=== PATIENT | female | born 1975 | race Two or more races ===

== ENCOUNTER 2020-06-16 14:13 | Outpatient (REF) | payer OTHER, SELFPAY | END 2020-06-16 14:14 | disposition home or self-care (01) | LOC: HO.LAB 14:13 | PROVIDERS: Visit Provider Internal Medicine | DX: Z20.828 Contact with and (suspected) exposure to other viral communicable diseases (principal) | CPT/HCPCS: 36415; C9803; U0003 ==

== ENCOUNTER 2020-06-17 00:33 | Emergency (ER) | payer SELFPAY ==
[2020-06-17 01:37] VITALS: BP 151/89; PULSE 87; RESP 16; TEMP 36.6; O2SAT 99; BMI 31.6
--- NOTE | 2020-06-17 02:44 | ED.GENADULT ---
HPI - General Adult General Chief complaint: Upper Respiratory Symptoms Stated complaint: SORE THROAT/COVID TEST PENDING Time Seen by Provider: 06/17/20 02:19 Source: patient Mode of arrival: ambulatory Limitations: language barrier (IPad senior cost estimator was used) History of Present Illness HPI narrative: 44-year-old female who presents with a viral-like syndrome. The patient states that she has been feeling sick for approximately 3 days. She complains of a sore throat, chest pain, cough which is worse at night and occasionally productive, fatigue. She states that she is having mild pain when she swallows, she states that she is also feeling hot and cold at home but did not have a fever. She has had chest pain for the past 3-4 days. She states the pain is intermittent and located in her anterior chest. The pain is worse with coughing with breathing. She shortness of breath but no dyspnea on exertion. She denied nausea, vomiting or diarrhea. She denied loss of sense of taste or smell. She states the daughter is COVID-19 positive anterior daughter is now in quarantine.. Related Data Previous Rx's Medication Instructions Recorded lisinopril 10 mg tablet 10 mg PO DAILY 90 Days #90 tab 03/27/20 [id number] 5 10 ml PO Q4H PRN #237 ml 03/27/20 mg-10 mg-100 mg/5 mL oral liquid Allergies Allergy/AdvReac Type Severity Reaction Status Date / Time No Known Allergies Allergy Verified 06/17/20 01:45 [No Known Allergies*] Review of Systems Review of Systems: Yes all other systems are reviewed and are negative Neurologic: Reports Abnormal speech present [facility] Past Medical History [facility] Narrative: Patient has history of hypertension. She denies tobacco, alcohol or drug use. Medical History Common cold Hypertension Social History Social History Advance Directives: No Physical Exam Vital Signs: Vital Signs: Last Vital Signs Temp 97.9 F 06/17/20 01:37 Pulse 87 06/17/20 01:37 Resp 16 06/17/20 01:37 BP 151/89 H 06/17/20 01:37 Pulse Ox 99 06/17/20 01:37 Body Mass Index 31.6 Const: General: cooperative and healthy appearing Orientation/consciousness: oriented to person and oriented to place Limitations: no limitations HENMT: Head: Yes normal to inspection, Yes normocephalic and Yes atraumatic Ears: external ears normal General nose exam: Normal external nose present Face and sinus: Yes normal facial exam Mouth: Normal oral and palatal mucosa present Throat: Yes posterior oropharynx normal Eyes: Periorbital: periorbital findings normal Eyelids: Yes eyelids normal Conjunctivae: conjunctivae normal Sclerae: sclerae normal Corneas: corneas normal Pupils: Equal, round and reactive pupils present Direct Ophthalmoscopy: normal light reflex Neck: Neck: Yes full ROM, Yes no lymphadenopathy, Yes no meningeal signs, Yes trachea midline and Yes supple Chest: Chest palpation & inspection: normal inspection of the chest and normal palpation of entire chest wall Resp: Effort & Inspection: normal respiratory effort and able to speak in complete sentences Auscultation: clear to auscultation bilaterally Cardio: Rate: regular rate Rhythm: regular rhythm Heart sounds: S1 normal heart sound present, S2 normal heart sound present and no murmurs GI: Inspection: Yes normal to inspection Palpation (GI): Soft to palpation, nontender, no guarding, not rigid and No hepatosplenomegaly present : General: Yes no CVA tenderness Back/Spine/Pelvis: Back: no CVA tenderness Cervical Spine: normal cervical lordosis Thoracic/Lumbar Spine: thoracic and lumbar spine normal to inspection Skin: Lesions: no lesions Rashes: no rashes Wounds: no wounds Neuro: General: oriented to person, oriented to place and no meningeal signs Cranial nerves: Yes Equal, round and reactive pupils present Cognition (Neuro): normal cognition Speech: Abnormal speech present Motor exam (neuro): 5/5 motor strength present throughout Extrem: General: Yes normal to inspection and Yes full ROM Psych: Appearance: well kempt Mental Status: mental status grossly normal Speech and movement: Normal speech and movement present Affect: normal affect Attitude: cooperative Thought process: Normal thought process present Thought content: Normal thought content present Course Course Course Narrative: 44-year-old female who presents emergency department for evaluation of viral-like illness who did have a positive COVID-19 exposure (her daughter). Her exam was unremarkable. Vital signs were stable with an O2 saturation 99% on room air. The patient was tested for COVID-19. She was advised to take ibuprofen and Tylenol. She was given printed instructions and discharged home. Discharge Plan Discharge Clinical Impression: Viral infection, Contact with and (suspected) exposure to covid-19 Patient Disposition: Home, Self-Care Instructions: COVID-19 (Coronavirus Disease 2019) (ED) Additional Instructions: Your COVID-19 test should be back in 2-4 days. It sometimes takes longer than 4 days to get results back as well. The hospital should call you with the results. Until you get the results back, assumed that you are COVID positive in stay home and quarantine. Increase your fluid intake. Rest. Take ibuprofen 200 mg pills, 3 pills every 6 hours as needed for pain or fever. Take Tylenol (acetaminophen) 500 mg pills, 2 pills every 4 to 6 hours as needed for pain or fever. Follow-up with your doctor in 2 days. Please return to the emergency department if your symptoms get worse or if you develop any symptoms that are concerning to you. Prescriptions: No Action lisinopril 10 mg tablet 10 mg PO DAILY 90 Days Qty: 90 RF: 0 Adult Robitussin Peak Cold M-S 5-10-100 mg/5 mL liquid 10 ml PO Q4H PRN (Reason: cold symptoms) Qty: 237 RF: 0 Print Language: [place]
== END 2020-06-17 03:26 | disposition home or self-care (01) ==
PROVIDERS: Emergency Provider Emergency Medicine Emergency Medical Services
DX: B34.9 Viral infection, unspecified (principal); I10 Essential (primary) hypertension
CPT/HCPCS: 99283

== ENCOUNTER 2020-06-20 21:57 | Emergency (ER) | payer OTHER, SELFPAY ==
[2020-06-20 23:27] VITALS: BP 141/95; PULSE 101; RESP 18; TEMP 37.2; O2SAT 97; BMI 31.2
[2020-06-21 02:47] VITALS: BP 163/87; PULSE 91; RESP 18; O2SAT 95
[2020-06-21 03:25] VITALS: BP 149/91; PULSE 96; RESP 16; TEMP 37.1; O2SAT 97
--- NOTE | 2020-06-21 03:38 | XR_ITS ---
EXAMINATION: XR CHEST CLINICAL INFORMATION: Shortness of breath COMPARISON: 10/27/2019 TECHNIQUE: Frontal view of the chest was obtained. FINDINGS: Lungs are clear. No consolidation, pneumothorax, or pleural effusion. Cardiac and mediastinal contours are normal. Pulmonary vasculature is unremarkable. Osseous structures are unremarkable. XR/XR chest 1V IMPRESSION: No acute cardiopulmonary findings
--- NOTE | 2020-06-21 03:40 | ED_ITS ---
HPI - SOB/Dyspnea General Chief Complaint: Dyspnea Stated Complaint: CHEST TIGHTNESS Time Seen by Provider: 06/21/20 03:33 Source: patient Mode of arrival: ambulatory Limitations: no limitations History of Present Illness HPI Narrative: Patient comes to emergency room complaining of shortness of breath. Patient states her chest feels very tight and thinks that she is wheezing. Patient states that she does not have history of asthma or COPD. Patient denies coughing, no fever, no body aches no headache. Patient states that she feels that she is breathing comfortably, but feels tight, no chest pain Related Data Previous Rx's Medication Instructions Recorded lisinopril 10 mg tablet 10 mg PO DAILY 90 Days #90 tab 03/27/20 [id number] 5 10 ml PO Q4H PRN #237 ml 03/27/20 mg-10 mg-100 mg/5 mL oral liquid albuterol sulfate 2 puff INHALATION Q4-6H PRN #8.5 g 06/21/20 prednisone 50 mg PO DAILY #5 tab 06/21/20 Allergies Allergy/AdvReac Type Severity Reaction Status Date / Time No Known Allergies Allergy Verified 06/20/20 23:27 [No Known Allergies*] Review of Systems Review of Systems: Constitutional : No Weight loss, No Fever, No Chills, No Night Sweats, No Fatigue, No Malaise ENT/Mouth : No Hearing loss, No Ear Pain, No Nasal Congestion, No Sinus Pain, No Hoarseness, No sore throat, No Rhinorrhea, No Swallowing Difficulty Eyes: No Eye Pain, No Swelling, No Redness, No Foreign Body, No Discharge, No Vision Changes Cardiovascular : No Chest Pain, No SOB, No Dyspnea on Exertion, No Orthopnea, No Edema, No Palpitations Respiratory : No Cough, No Sputum, complaining of Wheezing and chest tightness, No Smoke Exposure, No Dyspnea Gastrointestinal : No Nausea, No Vomiting, No Diarrhea, No Constipation, No abdominal Pain, No Hematochezia, No Melena Genitourinary : no irregular bleeding, No Dysuria, No Urinary Frequency, No Hematuria, No Urinary Incontinence, No Urgency, No Flank Pain, No Urinary Flow Changes, No Hesitancy Musculoskeletal : No joint pain, No Myalgias, No Joint Swelling Skin : No Skin Lesions, No rash Neuro : No Weakness, No Numbness, No Paresthesias, No Loss of Consciousness, No Dizziness, No Headache Psych : No Anxiety/Panic, No Depression, No SI/HI/AH/VH, No Social Issues, Heme/Lymph: No Bruising, No Bleeding,No Lymphadenopathy Endocrine : No Polyuria, No Polydipsia, No Temperature Intolerance [facility] Past Medical History Medical History Common cold Hypertension Social History Social History Advance Directives: No Physical Exam Vital Signs: Vital Signs: Last Vital Signs Temp 98.7 F 06/21/20 04:00 Pulse 84 06/21/20 04:12 Resp 19 06/21/20 04:00 BP 148/78 H 06/21/20 04:00 Pulse Ox 97 06/21/20 04:00 Body Mass Index 31.2 Appearance: Alert. Oriented X3. No acute distress. Eyes: Pupils equal, round and reactive to light. ENT: Pharynx normal. Neck: Normal inspection. Neck supple. No lymph nodes noted. No crepitus CVS: Normal heart rate and rhythm. Pulses normal. Normal S1 and S2 Respiratory: No respiratory distress. Patient has bilateral wheezing Abdomen: Soft and nontender. No rigidity. No distention. good BS x4 Skin: Skin warm and dry. Normal skin color. Normal skin turgor. Extremities: No lower extremity edema. No lower extremity edema. No Lacerations. No Rash Neuro: Oriented X 3. No motor deficit. No sensory deficit. Moving all extermities. No slurred speech. Course Course Course Narrative: It is possible the patient may have undiagnosed asthma. Patient will follow-up with her primary care physician, patient may need pulmonary function tests. Patient is a nonsmoker, unlikely to be COPD. Patient is no longer wheezing, patient breathing at baseline, on physical exam before discharge, patient is not wheezing at all, oxygen saturation 98% on room air. MDM - SOB/Dyspnea Lab Data Result diagrams: 06/21/20 03:57 06/21/20 03:57 Labs: Lab Results 06/21/20 06/21/20 Range/Units 03:57 03:57 WBC 12.3 H (4.8-10.8) X10*3/uL RBC 4.36 (4.20-5.50) X10*6/uL Hgb 10.1 L (12.0-16.0) g/dl Hct 32.4 L (37-47) % MCV 74.3 L (80-98) fL MCH 23.2 L (27.0-33.0) pg MCHC 31.2 (31.0-35.0) g/dl RDW 16.5 H (11.0-16.0) % Plt Count 347 (160-400) X10*3/uL MPV 9.1 L (9.4-12.3) fL Immature Gran % (Auto) 0.2 (0.0-0.4) % Neut % (Auto) 60.9 (45-73) % Lymph % (Auto) 23.5 (20-40) % [place] % (Auto) 8.6 (2-11) % Eos % (Auto) 6.4 H (0-4) % Baso % (Auto) 0.4 (0-2) % Lymph # (Auto) 2.9 (1.2-4.9) X10*3/uL [place] # (Auto) 1.1 (0.1-1.2) X10*3/uL Eos # (Auto) 0.8 H (0.0-0.4) X10*3/uL Baso # (Auto) 0.1 (0.0-0.2) X10*3/uL Abs Immat Gran (auto) 0.03 (0.00-0.03) X10*3/uL Absolute Neuts (auto) 7.5 (2.0-8.3) X10*3/uL Absolute Nucleated RBC 0.000 (0.0-0.012) X10*3/uL Nucleated RBC % (auto) 0.0 (0.0-0.2) /100WBC Sodium 139 (135-145) mmol/L Potassium 4.3 (3.3-5.1) mmol/l Chloride 105 (96-108) mmol/L Carbon Dioxide 26 (22-29) mmol/L Anion Gap 12 (12-20) BUN 19 H (9-16) mg/dL Creatinine 1.00 (0.5-1.4) mg/dL Estim Creat Clear Calc 73.0 Estimated GFR 60 Random Glucose 97 (60-115) mg/dL Calcium 8.8 (8.4-10.2) mg/dL Imaging Data Chest x-ray: Radiologist's impression: FINDINGS: Lungs are clear. No consolidation, pneumothorax, or pleural effusion. Cardiac and mediastinal contours are normal. Pulmonary vasculature is unremarkable. Osseous structures are unremarkable. XR/XR chest 1V IMPRESSION: No acute cardiopulmonary findings Discharge Plan Discharge Clinical Impression: Expiratory wheezing Patient Disposition: Home, Self-Care Instructions: Wheezing (ED) Additional Instructions: Please follow-up with your primary care physician tomorrow. If you have any worsening or new symptoms, please return to the emergency room or call 911 Prescriptions: New prednisone 50 mg tablet 50 mg PO DAILY Qty: 5 RF: 0 albuterol sulfate 90 mcg/actuation HFA aerosol inhaler 2 puff inhalation Q4-6H PRN (Reason: shortness of breath or wheezing) Qty: 8.5 RF: 0 No Action lisinopril 10 mg tablet 10 mg PO DAILY 90 Days Qty: 90 RF: 0 Adult Robitussin Peak Cold M-S 5-10-100 mg/5 mL liquid 10 ml PO Q4H PRN (Reason: cold symptoms) Qty: 237 RF: 0
[2020-06-21 04:00] VITALS: BP 148/78; PULSE 121; RESP 19; TEMP 37.1; O2SAT 97
[2020-06-21] MEDS: methylPREDNISolone Sod Succ/PF 125 MG/2 ML VIAL IVPUSH (04:01)
[2020-06-21 04:02] LABS: MANUAL DIFF FLAG NO
[2020-06-21 04:03] LABS: Basophils Absolute Auto 0.1 X10*3/uL (0.0-0.2); Basophils Percent Auto 0.4 % (0-2); Eosinophils Absolute Auto 0.8 X10*3/uL (0.0-0.4); Eosinophils Percent Auto 6.4 % (0-4); Hematocrit 32.4 % (37-47); Hemoglobin 10.1 g/dl (12.0-16.0); Imm Gran Abs Auto 0.03 X10*3/uL (0.00-0.03); Imm Gran Pct Auto 0.2 % (0.0-0.4); Lymphocytes Absolute Auto 2.9 X10*3/uL (1.2-4.9); Lymphocytes Percent Auto 23.5 % (20-40); Mean Corpuscular HGB Conc 31.2 g/dl (31.0-35.0); Mean Corpuscular Hemoglobin 23.2 pg (27.0-33.0); Mean Corpuscular Volume 74.3 fL (80-98); Mean Platelet Volume 9.1 fL (9.4-12.3); Monocytes Absolute Auto 1.1 X10*3/uL (0.1-1.2); Monocytes Percent Auto 8.6 % (2-11); Neutrophils Absolute Auto 7.5 X10*3/uL (2.0-8.3); Neutrophils Percent Auto 60.9 % (45-73); Platelet Count 347 X10*3/uL (160-400); Red Blood Count 4.36 X10*6/uL (4.20-5.50); Red Cell Distribution Width 16.5 % (11.0-16.0); White Blood Count 12.3 X10*3/uL (4.8-10.8)
[2020-06-21 04:12] VITALS: PULSE 84; O2SAT 97
[2020-06-21] MEDS: Albuterol Sulfate (0.083%) 2.5 MG/3 ML VIAL.NEB 10 MG INHALE (04:14)
[2020-06-21 04:32] LABS: Anion Gap 12 (12-20); Blood Urea Nitrogen 19 mg/dL (9-16); Calcium 8.8 mg/dL (8.4-10.2); Carbon Dioxide 26 mmol/L (22-29); Chloride 105 mmol/L (96-108); Estimated Glomerular Filt Rate 60; Glucose Random 97 mg/dL (60-115); Potassium 4.3 mmol/l (3.3-5.1); Sodium 139 mmol/L (135-145)
== END 2020-06-21 06:35 | disposition home or self-care (01) ==
PROVIDERS: Emergency Provider Emergency Medicine; PCP Internal Medicine
DX: R06.2 Wheezing (principal); Z20.822 Contact with and (suspected) exposure to COVID-19; I10 Essential (primary) hypertension
CPT/HCPCS: 36415; 71045; 80048; 85025; 94640; 96374; 99284; 99285; J2930; U0003

== ENCOUNTER 2020-07-01 18:34 | Emergency (ER) | payer OTHER, SELFPAY ==
[2020-07-01 18:37] VITALS: BP 138/63; PULSE 102; RESP 18; TEMP 37; O2SAT 98; BMI 32.8
--- NOTE | 2020-07-01 19:29 | ECG_ITS ---
Test Reason : CHEST PAIN Blood Pressure : / mmHG Vent. Rate : 095 BPM Atrial Rate : 095 BPM P-R Int : 140 ms QRS Dur : 068 ms QT Int : 360 ms P-R-T Axes : 065 020 026 degrees QTc Int : 452 ms Normal sinus rhythm Nonspecific ST and T wave abnormality Borderline ECG When compared with ECG of 14-FEB-2019 00:30, Nonspecific ST and T wave abnormality more prominent Referred By: Tess Fink Electronically Signed By:ALESHA GREEN
--- NOTE | 2020-07-01 19:29 | CT_ITS ---
EXAMINATION: CT ANGIOGRAM CHEST WITH AND WITHOUT CONTRAST (CT PULMONARY ANGIOGRAM FOR PE) CLINICAL INFORMATION: Chest tightness, tachycardia. COMPARISON: None TECHNIQUE: Prior to contrast administration, noncontrast localization images were obtained. Subsequently, multidetector volumetric imaging was performed from the thoracic inlet to below the diaphragms following the administration of 65 mL Omnipaque 350 intravenous contrast. No contrast reaction reported. Sagittal, coronal, and MIP oblique sagittal reformatted images were obtained on the CT workstation, uploaded to PACS, and reviewed. This CT examination was performed using dose optimization techniques as appropriate, variously including the following: *Automated exposure control. *Adjustment of mA and/or kV according to patient size (this includes techniques or standardized protocols for targeted exams where dose is matched to indication/reason for exam; i.e. extremities or head). *Use of iterative reconstruction technique. Total exam dose-length product 331 mGy-cm. FINDINGS: QUALITY OF STUDY/CONTRAST BOLUS: Suboptimal. PULMONARY ARTERIES: No large central pulmonary emboli. Because of the quality of the study, a discussion was started with Dr. Duran and a decision was made to repeat the study with a higher dose of contrast and faster injection rate with hopes of being able to exclude pulmonary emboli. This critical result was discussed with Dr. Duran at 5:00 PM on the day of the exam and it was ascertained that the content and urgency of the report was understood at the time of direct communication.
--- NOTE | 2020-07-01 19:29 | ED.CHESTPAIN ---
HPI - Chest Pain General Chief Complaint: Chest Pain Stated Complaint: Chest pain Time Seen by Provider: 07/01/20 19:25 Source: patient Mode of arrival: ambulatory Limitations: language barrier History of Present Illness HPI narrative: 44-year-old female past medical history of hypertension presents with chest pain, chest pain and tightness on inspiration, and elevated heart rate. She states this is the 3rd time presenting to the emergency department in the past month however feels that this chest pain is different than her previous experiences. She feels short of breath on minimal exertion and also complains of dysuria. She does not describe any abdominal pain or distention, fevers, chills, dizziness, lightheadedness or weakness. MD complaint: chest pain and other (Chest tightness, pain on inspiration) Pertinent past history: asthma Onset (ago): day(s) (Several) Timing of current episode: constant Prior episodes: Yes Pain location: substernal and lateral Severity: moderate Pain scale (0-10): 6 Quality: tightness and heaviness Relieving factors: nothing Exacerbating factors: exertion, inspiration and movement Context: recent illness Related Data Previous Rx's Medication Instructions Recorded vkmamrlyzidvi-CB-ekjzedqnhoj 5 10 ml PO Q4H PRN #237 ml 03/27/20 mg-10 mg-100 mg/5 mL oral liquid albuterol sulfate 2 puff INHALATION Q4-6H PRN #8.5 g 06/21/20 prednisone 50 mg PO DAILY #5 tab 06/21/20 cephalexin [Keflex] 500 mg PO Q12H 7 Days #14 cap 07/01/20 phenazopyridine [Pyridium] 200 mg PO TID PRN #6 tab 07/01/20 Allergies Allergy/AdvReac Type Severity Reaction Status Date / Time No Known Allergies Allergy Verified 07/01/20 18:37 [No Known Allergies*] Review of Systems Review of Systems: Constitutional: No Fever, No Chills ENT/Mouth: No Hoarseness, No sore throat, No Rhinorrhea Eyes: No Redness, No Discharge, No Vision Changes Cardiovascular: Positive Chest Pain, positive SOB, positive Dyspnea on Exertion, No Edema Respiratory: No Cough, No Sputum, no Wheezing, positive pain on inspiration lateral Gastrointestinal: No Nausea, No Vomiting, No Diarrhea, No abdominal Pain Genitourinary: Positive Dysuria, No Hematuria Musculoskeletal: No joint pain, No Myalgias Skin: No rash Neuro: No Weakness, No Numbness, No Headache Psych: No anxiety, depression Heme/Lymph: No Bruising, No Bleeding Endocrine: No Polyuria, No Polydipsia Yes all other systems are reviewed and are negative [facility] Past Medical History Attestation statement: The following information was validated with the patient. Source: old records reviewed Medical History Common cold Hypertension Social History Social History Alcohol intake: never Smoking Status: Never smoker Use of substances other than those prescribed or required for medical reasons: No Advance Directives: No Advance Directives Information Provided: No Physical Exam Vital Signs: Vital Signs: Last Vital Signs Temp 98.4 F 07/01/20 21:51 Pulse 83 07/01/20 21:51 Resp 85 H 07/01/20 21:51 BP 99/62 07/01/20 21:51 Pulse Ox 98 07/01/20 21:51 Body Mass Index 32.8 Appearance: Alert. Oriented X3. No acute distress. Eyes: Pupils equal, round and reactive to light. ENT: Pharynx normal. Neck: Normal inspection. Neck supple. CVS: Normal heart rate and rhythm. Pulses normal. Respiratory: No respiratory distress. Breath sounds normal. Abdomen: Soft and nontender. Skin: Skin warm and dry. Normal skin color. Normal skin turgor. Extremities: No lower extremity edema. Neuro: No motor deficit. No sensory deficit. Course Course Course Narrative: 44-year-old female with past medical history of hypertension presents with chest tightness and pressure, substernal chest pain and lateral pain on inspiration. She is tachycardic with heart rate of 102. This is her 3rd visit to the emergency department in the past 4 weeks for chest pain. This time we will order CT angio to rule out PE as she is tachycardic with lateral pain on inspiration. Will rule ACS and UTI. EKG is normal sinus, troponin negative, urinalysis indicates UTI. We will give IV ceftriaxone. CT angio needed to be repeated as the dye did not get into the lung sufficiently. Give a bolus of normal saline. CT angio is negative for acute findings and PE. Detailed description of findings given to patient by this APPLICATION PENETRATION TESTER. Patient will be discharged home with p.o. antibiotics Keflex and Pyridium for pain management. She is also advised to drink plenty of fluids as she has had multiple IV injections of contrast dye. Patient verbalizes understanding of and agrees to plan of care discharge home. interpreter deaf utilized for all correspondence, Google translate utilized in discharge instructions. MDM - Chest Pain Differential Diagnosis Differential diagnosis: Likely fracture of rib, pneumothorax, unstable angina pectoris, st elevation myocardial infarction, costochondritis and chest pain Differential diagnosis: PE Medical Records Data Attestation: I reviewed the patient's medical records. Lab Data Attestation: I reviewed the patient's lab results. Result diagrams: 07/01/20 19:44 07/01/20 19:44 Labs: Lab Results 07/01/20 07/01/20 07/01/20 Range/Units 19:44 19:44 19:44 WBC 13.6 H (4.8-10.8) X10*3/uL RBC 4.54 (4.20-5.50) X10*6/uL Hgb 10.5 L (12.0-16.0) g/dl Hct 33.8 L (37-47) % MCV 74.4 L (80-98) fL MCH 23.1 L (27.0-33.0) pg MCHC 31.1 (31.0-35.0) g/dl RDW 16.8 H (11.0-16.0) % Plt Count 427 H (160-400) X10*3/uL MPV 9.3 L (9.4-12.3) fL Immature Gran % (Auto) 0.4 (0.0-0.4) % Neut % (Auto) 66.6 (45-73) % Lymph % (Auto) 20.1 (20-40) % Swain % (Auto) 8.0 (2-11) % Eos % (Auto) 4.4 H (0-4) % Baso % (Auto) 0.5 (0-2) % Lymph # (Auto) 2.7 (1.2-4.9) X10*3/uL Swain # (Auto) 1.1 (0.1-1.2) X10*3/uL Eos # (Auto) 0.6 H (0.0-0.4) X10*3/uL Baso # (Auto) 0.1 (0.0-0.2) X10*3/uL Abs Immat Gran (auto) 0.06 H (0.00-0.03) X10*3/uL Absolute Neuts (auto) 9.1 H (2.0-8.3) X10*3/uL Absolute Nucleated RBC 0.000 (0.0-0.012) X10*3/uL Nucleated RBC % (auto) 0.0 (0.0-0.2) /100WBC Sodium 139 (135-145) mmol/L Potassium 4.6 (3.3-5.1) mmol/l Chloride 105 (96-108) mmol/L Carbon Dioxide 27 (22-29) mmol/L Anion Gap 12 (12-20) BUN 13 (9-16) mg/dL Creatinine 0.93 (0.5-1.4) mg/dL Estim Creat Clear Calc 80.5 Estimated GFR > 60 Random Glucose 110 (60-115) mg/dL Calcium 8.7 (8.4-10.2) mg/dL Troponin I High Sens < 3.5 (<3.5-17.0) ng/L Urine Color Urine Appearance Urine pH (5.0-8.0) Ur Specific [place] (1.005-1.025) Urine Protein (NEG-TRACE) MG/DL Urine Glucose (UA) (NEG) MG/DL Urine Ketones (NEG) MG/DL Urine Blood (NEG) Urine Nitrite (NEG) Ur Leukocyte Esterase (NEG) Urine RBC (0) /HPF Urine WBC (0-4) /HPF Ur Squamous Epith Cells /LPF Urine Bacteria /LPF 07/01/20 Range/Units 20:12 WBC (4.8-10.8) X10*3/uL RBC (4.20-5.50) X10*6/uL Hgb (12.0-16.0) g/dl Hct (37-47) % MCV (80-98) fL MCH (27.0-33.0) pg MCHC (31.0-35.0) g/dl RDW (11.0-16.0) % Plt Count (160-400) X10*3/uL MPV (9.4-12.3) fL Immature Gran % (Auto) (0.0-0.4) % Neut % (Auto) (45-73) % Lymph % (Auto) (20-40) % Swain % (Auto) (2-11) % Eos % (Auto) (0-4) % Baso % (Auto) (0-2) % Lymph # (Auto) (1.2-4.9) X10*3/uL Swain # (Auto) (0.1-1.2) X10*3/uL Eos # (Auto) (0.0-0.4) X10*3/uL Baso # (Auto) (0.0-0.2) X10*3/uL Abs Immat Gran (auto) (0.00-0.03) X10*3/uL Absolute Neuts (auto) (2.0-8.3) X10*3/uL Absolute Nucleated RBC (0.0-0.012) X10*3/uL Nucleated RBC % (auto) (0.0-0.2) /100WBC Sodium (135-145) mmol/L Potassium (3.3-5.1) mmol/l Chloride (96-108) mmol/L Carbon Dioxide (22-29) mmol/L Anion Gap (12-20) BUN (9-16) mg/dL Creatinine (0.5-1.4) mg/dL Estim Creat Clear Calc Estimated GFR Random Glucose (60-115) mg/dL Calcium (8.4-10.2) mg/dL Troponin I High Sens (<3.5-17.0) ng/L Urine Color RED Urine Appearance CLOUDY Urine pH 6.5 (5.0-8.0) Ur Specific [place] 1.010 (1.005-1.025) Urine Protein TRACE (NEG-TRACE) MG/DL Urine Glucose (UA) NEG (NEG) MG/DL Urine Ketones NEG (NEG) MG/DL Urine Blood 3+ H (NEG) Urine Nitrite NEG (NEG) Ur Leukocyte Esterase 2+ H (NEG) Urine RBC TNTC H (0) /HPF Urine WBC 30-49 H (0-4) /HPF Ur Squamous Epith Cells 1+ /LPF Urine Bacteria 1+ /LPF Imaging Data CT scan - chest: Attestation: I personally reviewed and interpreted this imaging study as follows: Radiologist's impression: EXAMINATION: CT ANGIOGRAM OF THE CHEST WITH AND WITHOUT CONTRAST (CT PULMONARY ANGIOGRAM FOR PE) CLINICAL INFORMATION: Reason for Exam sob, pain on inspiration, tachycardia COMPARISON: None TECHNIQUE: Prior to contrast administration, noncontrast localization images were obtained. Subsequently, multidetector volumetric imaging was performed from the thoracic inlet to below the diaphragms following the administration of 80 mL Omnipaque 350 intravenous contrast. No contrast reaction reported Sagittal, coronal, and MIP oblique sagittal reformatted images were obtained on the CT workstation, uploaded to PACS, and reviewed. This CT examination was performed using dose optimization techniques as appropriate, variously including the following: *Automated exposure control *Adjustment of mA and/or kV according to patient size (this includes techniques or standardized protocols for targeted exams where dose is matched to indication/reason for exam; i.e. extremities or head) *Use of iterative reconstruction technique Total exam dose-length product 408 mGy-cm FINDINGS: QUALITY OF STUDY/CONTRAST BOLUS: Satisfactory. PULMONARY ARTERIES: No central or segmental pulmonary emboli. THORACIC AORTA: No aneurysm or dissection. LUNG: The lungs are well-expanded without any nodule, mass or consolidation there is a punctate focal atelectasis right lung base, image 30/5. PLEURA: No pleural effusion or pneumothorax. MEDIASTINUM: Normal heart size. No pericardial effusion. No hilar or mediastinal lymphadenopathy. No evidence of septal bowing or right heart strain. CHEST WALL/AXILLA: No axillary or internal mammary lymphadenopathy. OSSEOUS STRUCTURES: No acute or suspicious osseous abnormality. UPPER ABDOMEN: Utilized liver, spleen, pancreas and bilateral adrenal glands are unremarkable. No reflux of contrast into the hepatic veins to suggest elevated right heart pressures. CT/CT angio chest PE protocol IMPRESSION: Unremarkable CTA chest exam VTE: negative ECG Data ECG #1: Attestation: I personally reviewed and interpreted this ECG as follows: ECG interpretation date: 07/01/20 ECG interpretation time: 19:15 Prior ECG tracings: not available for review Interpretation: Ventricular rate 93 beats per minute, SD 146, QRS 70, QT 364, QTC 452, normal sinus rhythm, normal EKG prior EKG unavailable secondary to 130 system error Scores Heart Score History: -0- slightly suspicious ECG: -0- normal Age: -1- >45 - <65 Risk factory: -0- no risk factors known Troponin: -0- < or = normal limit Score: 1 Risk: 1.7% Wells PE Clinical symptoms of DVT: 3 Heart rate > 100 p/min: 1.5 Score: 4.5 2-tier Risk: likely risk (17-53%) Critical Care Time Critical Care Time Critical Care Time: Yes Total Critical Care Time: 45 Attestation: I have personally provided critical care time exclusive of time spent on separately billable procedures. Time includes review of laboratory data, radiology results, discussion with consultants, and monitoring for potential decompensation. Interventions were performed as documented. Discharge Plan Discharge Clinical Impression: UTI (urinary tract infection), Chest pain, Atypical chest pain Patient Disposition: Home, Self-Care Instructions: Urinary Tract Infection in Women (ED), Noncardiac Chest Pain (ED) Additional Instructions: Te evaluaron para el dolor tor?cico. Hicimos jake tomograf?a computarizada para descartar co?gulos de kelly en los pulmones, esta prueba fue negativa. Alejandre electrocardiograma era el ritmo sinusal normal, meredith troponinas que son enzimas card?acas son negativas. Tienes jake infecci?n del tracto urinario. Por favor, tome Keflex dos veces al d?a para el siguiente. Use Pyridium seg?n sea necesario para el manejo del dolor Por favor, joe un seguimiento con el m?dico de atenci?n primaria en 1-2 semanas para el anote posterior. Shmuel por elegir medhat departamento de emergencias para la evaluaci?n. Por favor, joe un seguimiento con el m?dico de atenci?n primaria seg?n sea necesario. Regrese al servicio de urgencias para cualquier s?ntoma nuevo, preocupante o que empeore. You were evaluated for chest pain. We did a CT scan to rule out blood clots in the lungs, this test was negative. Your EKG was normal sinus rhythm, your troponins which are cardiac enzymes are negative. You do have a urinary tract infection. Please take Keflex twice a day for the next. Use Pyridium as needed for pain management Please follow-up with primary care physician in 1-2 weeks for further workup. Thank you for choosing this emergency department for evaluation. Please follow-up with primary care physician as needed. Return to the emergency department for any new, concerning, or worsening symptoms. Prescriptions: New cephalexin [Keflex] 500 mg capsule 500 mg PO Q12H 7 Days Qty: 14 RF: 0 phenazopyridine [Pyridium] 200 mg tablet 200 mg PO TID PRN (Reason: pain) Qty: 6 RF: 0 No Action prednisone 50 mg tablet 50 mg PO DAILY Qty: 5 RF: 0 albuterol sulfate 90 mcg/actuation HFA aerosol inhaler 2 puff inhalation Q4-6H PRN (Reason: shortness of breath or wheezing) Qty: 8.5 RF: 0 Adult Robitussin Peak Cold M-S 5-10-100 mg/5 mL liquid 10 ml PO Q4H PRN (Reason: cold symptoms) Qty: 237 RF: 0 Interventions: ED Discharge Assessment Last Done: 07/01/20 23:12 Discharge Date/Time: 07/01/20 23:55
[2020-07-01 19:48] LABS: MANUAL DIFF FLAG NO
[2020-07-01 20:01] LABS: Basophils Absolute Auto 0.1 X10*3/uL (0.0-0.2); Basophils Percent Auto 0.5 % (0-2); Eosinophils Absolute Auto 0.6 X10*3/uL (0.0-0.4); Eosinophils Percent Auto 4.4 % (0-4); Hematocrit 33.8 % (37-47); Hemoglobin 10.5 g/dl (12.0-16.0); Imm Gran Abs Auto 0.06 X10*3/uL (0.00-0.03); Imm Gran Pct Auto 0.4 % (0.0-0.4); Lymphocytes Absolute Auto 2.7 X10*3/uL (1.2-4.9); Lymphocytes Percent Auto 20.1 % (20-40); Mean Corpuscular HGB Conc 31.1 g/dl (31.0-35.0); Mean Corpuscular Hemoglobin 23.1 pg (27.0-33.0); Mean Corpuscular Volume 74.4 fL (80-98); Mean Platelet Volume 9.3 fL (9.4-12.3); Monocytes Absolute Auto 1.1 X10*3/uL (0.1-1.2); Neutrophils Absolute Auto 9.1 X10*3/uL (2.0-8.3); Neutrophils Percent Auto 66.6 % (45-73); Platelet Count 427 X10*3/uL (160-400); Red Blood Count 4.54 X10*6/uL (4.20-5.50); Red Cell Distribution Width 16.8 % (11.0-16.0); White Blood Count 13.6 X10*3/uL (4.8-10.8)
[2020-07-01 20:11] LABS: Anion Gap 12 (12-20); Blood Urea Nitrogen 13 mg/dL (9-16); Calcium 8.7 mg/dL (8.4-10.2); Carbon Dioxide 27 mmol/L (22-29); Chloride 105 mmol/L (96-108); Creatinine Clr Calc Pharmacy 80.5; Estimated Glomerular Filt Rate > 60; Glucose Random 110 mg/dL (60-115); Potassium 4.6 mmol/l (3.3-5.1); Sodium 139 mmol/L (135-145)
[2020-07-01 20:18] LABS: Troponin-I High Sensitivity < 3.5 ng/L (<3.5-17.0)
[2020-07-01 20:20] LABS: Glucose Urine UA NEG (NEG); Leukocyte Esterase Urine 2+ (NEG); Nitrite Urine NEG (NEG); PH 6.5 (5.0-8.0); UACC Culture Trigger YES; Urine Blood 3+ (NEG); Urine Ketones NEG (NEG); Urine Protein TRACE MG/DL (NEG-TRACE)
[2020-07-01 20:22] LABS: Appearance Urine CLOUDY; Color Urine RED
[2020-07-01 20:27] LABS: Bacteria Urine 1+ /LPF; RBC Urine TNTC /HPF (0); Squamous Epithelial Cell Urine 1+ /LPF; WBC Urine 30-49 /HPF (0-4)
[2020-07-01] MEDS: iohexoL 350 MG/ML 100 ML INFUS..BTL IV (21:19)
[2020-07-01] MEDS: cefTRIAXone sodium 1 GM in 0.9 % Sodium Chloride 50 ML IV (21:33)
--- NOTE | 2020-07-01 21:39 | PC.NURSE ---
Patient medicated per emar as noted
--- NOTE | 2020-07-01 21:45 | CT_ITS ---
EXAMINATION: CT ANGIOGRAM OF THE CHEST WITH AND WITHOUT CONTRAST (CT PULMONARY ANGIOGRAM FOR PE) CLINICAL INFORMATION: Reason for Exam sob, pain on inspiration, tachycardia COMPARISON: None TECHNIQUE: Prior to contrast administration, noncontrast localization images were obtained. Subsequently, multidetector volumetric imaging was performed from the thoracic inlet to below the diaphragms following the administration of 80 mL Omnipaque 350 intravenous contrast. No contrast reaction reported Sagittal, coronal, and MIP oblique sagittal reformatted images were obtained on the CT workstation, uploaded to PACS, and reviewed. This CT examination was performed using dose optimization techniques as appropriate, variously including the following: *Automated exposure control *Adjustment of mA and/or kV according to patient size (this includes techniques or standardized protocols for targeted exams where dose is matched to indication/reason for exam; i.e. extremities or head) *Use of iterative reconstruction technique Total exam dose-length product 408 mGy-cm FINDINGS: QUALITY OF STUDY/CONTRAST BOLUS: Satisfactory. PULMONARY ARTERIES: No central or segmental pulmonary emboli. THORACIC AORTA: No aneurysm or dissection. LUNG: The lungs are well-expanded without any nodule, mass or consolidation there is a punctate focal atelectasis right lung base, image 30/5. PLEURA: No pleural effusion or pneumothorax. MEDIASTINUM: Normal heart size. No pericardial effusion. No hilar or mediastinal lymphadenopathy. No evidence of septal bowing or right heart strain. CHEST WALL/AXILLA: No axillary or internal mammary lymphadenopathy. OSSEOUS STRUCTURES: No acute or suspicious osseous abnormality. UPPER ABDOMEN: Utilized liver, spleen, pancreas and bilateral adrenal glands are unremarkable. No reflux of contrast into the hepatic veins to suggest elevated right heart pressures. CT/CT angio chest PE protocol IMPRESSION: Unremarkable CTA chest exam VTE: negative
[2020-07-01] MEDS: 0.9 % Sodium Chloride 1,000 ML 999 ML IVCONT (21:46)
[2020-07-01 21:51] VITALS: BP 99/62; PULSE 83; RESP 85; TEMP 36.9; O2SAT 98
== END 2020-07-01 23:55 | disposition home or self-care (01) ==
PROVIDERS: Nurse Practitioner Family; Emergency Provider Emergency Medicine Emergency Medical Services; PCP Internal Medicine
DX: R07.89 Other chest pain (principal); N39.0 Urinary tract infection, site not specified; I10 Essential (primary) hypertension; Z79.899 Other long term (current) drug therapy
CPT/HCPCS: 36415; 71275; 80048; 81001; 81003; 84484; 85025; 87086; 93005; 96361; 96365; 99284; 99291; J0696; Q9967

== ENCOUNTER 2020-11-27 01:36 | Emergency (ER) | payer OTHER, SELFPAY ==
[2020-11-27 01:44] VITALS: BP 171/86; PULSE 91; RESP 16; TEMP 37.3; O2SAT 98; BMI 33.3
[2020-11-27 03:19] LABS: Glucose Urine UA NEG (NEG); Leukocyte Esterase Urine NEG (NEG); Nitrite Urine NEG (NEG); PH 6.5 (5.0-8.0); Specific Gravity - Urine 1.015 (1.005-1.025); Urine Blood NEG (NEG); Urine Ketones NEG (NEG); Urine Protein NEG (NEG-TRACE)
[2020-11-27 03:21] LABS: Appearance Urine CLEAR; Color Urine YELLOW; UACC CULT NO; UPreg QC Valid YES; Urine Pregnancy NEGATIVE (NEGATIVE)
--- NOTE | 2020-11-27 03:30 | ED_ITS ---
HPI - Abdominal Pain General Chief Complaint: Abdominal Pain Stated Complaint: back pain, abd pain, swollen Time Seen by Provider: 11/27/20 03:30 Source: patient and cattle manager Mode of arrival: ambulatory History of Present Illness HPI narrative: 45-year-old female with history of hypertension presents with 1 day right midback/flank discomfort that is nonradiating and is not been associated with fever, chills, nausea, vomiting, diarrhea, urinary pain/burning/frequency. Patient states that her LMP was 11/08/2020. The patient denies any past surgical history within the abdomen and her last bowel movement was today. Related Data Previous Rx's Medication Instructions Recorded tszwjcultgczi-PG-gzggprkvwaf 5 10 ml PO Q4H PRN #237 ml 03/27/20 mg-10 mg-100 mg/5 mL oral liquid albuterol sulfate 2 puff INHALATION Q4-6H PRN #8.5 g 06/21/20 prednisone 50 mg PO DAILY #5 tab 06/21/20 cephalexin [Keflex] 500 mg PO Q12H 7 Days #14 cap 07/01/20 phenazopyridine [Pyridium] 200 mg PO TID PRN #6 tab 07/01/20 Allergies Allergy/AdvReac Type Severity Reaction Status Date / Time No Known Allergies Allergy Verified 07/01/20 18:37 [No Known Allergies*] Review of Systems Review of Systems Pertinent positives and negatives as stated in HPI 10 point review of systems is otherwise negative. Physical Exam Vital Signs: Vital Signs: Last Vital Signs Temp 99.2 F 11/27/20 01:44 Pulse 91 11/27/20 01:44 Resp 16 11/27/20 01:44 BP 171/86 H 11/27/20 01:44 Pulse Ox 98 11/27/20 01:44 Body Mass Index 33.3 VITAL SIGNS: Reviewed. GENERAL: Well developed, well nourished, in no acute distress. HEAD: Normocephalic/atraumatic EYES: PERRLA, EOMI OROPHARYNX: no oral lesions noted, posterior pharynx clear LUNGS: Normal breath sounds. No adventitious sounds or accessory muscle use. SpO2<98> CARDIOVASCULAR: Regular rate and rhythm without noted murmurs, no JVD or lower extremity edema. ABDOMEN: Soft, non-tender, non-distended with bowel sounds. Course Course Course Narrative: This is a 45-year-old female with history and clinical presentation of unclear etiology but suspect possible musculoskeletal in nature. However, will evaluate with basic labs and urinalysis. On review of all investigations there are no acute findings to better explain patient's symptoms. All results were discussed with her bedside she was encouraged to follow-up with her PCP. MDM - Abdominal Pain Lab Data Result diagrams: 11/27/20 03:42 11/27/20 03:42 Labs: Lab Results 11/27/20 11/27/20 11/27/20 Range/Units 03:12 03:12 03:42 WBC 9.7 (4.8-10.8) X10*3/uL RBC 4.30 (4.20-5.50) X10*6/uL Hgb 9.1 L (12.0-16.0) g/dl Hct 29.9 L (37-47) % MCV 69.5 L (80-98) fL MCH 21.2 L (27.0-33.0) pg MCHC 30.4 L (31.0-35.0) g/dl RDW 18.5 H (11.0-16.0) % Plt Count 357 (160-400) X10*3/uL MPV 9.1 L (9.4-12.3) fL Immature Gran % (Auto) 0.3 (0.0-0.4) % Neut % (Auto) 60.0 (45-73) % Lymph % (Auto) 24.9 (20-40) % [place] % (Auto) 9.5 (2-11) % Eos % (Auto) 4.8 H (0-4) % Baso % (Auto) 0.5 (0-2) % Lymph # (Auto) 2.4 (1.2-4.9) X10*3/uL [place] # (Auto) 0.9 (0.1-1.2) X10*3/uL Eos # (Auto) 0.5 H (0.0-0.4) X10*3/uL Baso # (Auto) 0.1 (0.0-0.2) X10*3/uL Abs Immat Gran (auto) 0.03 (0.00-0.03) X10*3/uL Absolute Neuts (auto) 5.8 (2.0-8.3) X10*3/uL Absolute Nucleated RBC 0.000 (0.0-0.012) X10*3/uL Nucleated RBC % (auto) 0.0 (0.0-0.2) /100WBC Sodium (135-145) mmol/L Potassium (3.3-5.1) mmol/L Chloride (96-108) mmol/L Carbon Dioxide (22-29) mmol/L Anion Gap (12-20) BUN (9-16) mg/dL Creatinine (0.5-1.4) mg/dL Estim Creat Clear Calc Estimated GFR Random Glucose (60-115) mg/dL Calcium (8.4-10.2) mg/dL Total Bilirubin (0.0-1.0) mg/dL AST (5-31) U/L ALT (0-31) U/L Alkaline Phosphatase (39-117) U/L Total Protein (6.5-8.0) g/dL Albumin (3.5-5.0) g/dL Urine Color YELLOW Urine Appearance CLEAR Urine pH 6.5 (5.0-8.0) Ur Specific [place] 1.015 (1.005-1.025) Urine Protein NEG (NEG-TRACE) MG/DL Urine Glucose (UA) NEG (NEG) MG/DL Urine Ketones NEG (NEG) MG/DL Urine Blood NEG (NEG) Urine Nitrite NEG (NEG) Ur Leukocyte Esterase NEG (NEG) Urine RBC 0-2 (0) /HPF Urine WBC 0 (0-4) /HPF Ur Squamous Epith Cells 1+ /LPF Amorphous Sediment 2+ /LPF Urine Bacteria NONE /LPF Urine Mucus TRACE /LPF Urine Test NEGATIVE (NEGATIVE) 11/27/20 Range/Units 03:42 WBC (4.8-10.8) X10*3/uL RBC (4.20-5.50) X10*6/uL Hgb (12.0-16.0) g/dl Hct (37-47) % MCV (80-98) fL MCH (27.0-33.0) pg MCHC (31.0-35.0) g/dl RDW (11.0-16.0) % Plt Count (160-400) X10*3/uL MPV (9.4-12.3) fL Immature Gran % (Auto) (0.0-0.4) % Neut % (Auto) (45-73) % Lymph % (Auto) (20-40) % [place] % (Auto) (2-11) % Eos % (Auto) (0-4) % Baso % (Auto) (0-2) % Lymph # (Auto) (1.2-4.9) X10*3/uL [place] # (Auto) (0.1-1.2) X10*3/uL Eos # (Auto) (0.0-0.4) X10*3/uL Baso # (Auto) (0.0-0.2) X10*3/uL Abs Immat Gran (auto) (0.00-0.03) X10*3/uL Absolute Neuts (auto) (2.0-8.3) X10*3/uL Absolute Nucleated RBC (0.0-0.012) X10*3/uL Nucleated RBC % (auto) (0.0-0.2) /100WBC Sodium 141 (135-145) mmol/L Potassium 4.2 (3.3-5.1) mmol/L Chloride 106 (96-108) mmol/L Carbon Dioxide 27 (22-29) mmol/L Anion Gap 12 (12-20) BUN 16 (9-16) mg/dL Creatinine 0.94 (0.5-1.4) mg/dL Estim Creat Clear Calc 79.4 Estimated GFR > 60 Random Glucose 91 (60-115) mg/dL Calcium 9.1 (8.4-10.2) mg/dL Total Bilirubin 0.2 (0.0-1.0) mg/dL AST 13 (5-31) U/L ALT 11 (0-31) U/L Alkaline Phosphatase 106 (39-117) U/L Total Protein 6.6 (6.5-8.0) g/dL Albumin 3.8 (3.5-5.0) g/dL Urine Color Urine Appearance Urine pH (5.0-8.0) Ur Specific [place] (1.005-1.025) Urine Protein (NEG-TRACE) MG/DL Urine Glucose (UA) (NEG) MG/DL Urine Ketones (NEG) MG/DL Urine Blood (NEG) Urine Nitrite (NEG) Ur Leukocyte Esterase (NEG) Urine RBC (0) /HPF Urine WBC (0-4) /HPF Ur Squamous Epith Cells /LPF Amorphous Sediment /LPF Urine Bacteria /LPF Urine Mucus /LPF Urine Test (NEGATIVE) Discharge Plan Discharge Clinical Impression: Back pain Patient Disposition: Home, Self-Care Instructions: Back Pain (ED), Lower Back Exercises (ED) Additional Instructions: 1. Tylenol 1000 mg, por v?a oral, cada 6 horas seg?n sea necesario para controlar el dolor. No exceda los 4000 mg en 24 horas. 2. Ibuprofeno 400 mg, por v?a oral con leche o alimentos, cada 6 horas seg?n sea necesario para controlar el dolor. 3. Lurdes un seguimiento con caldera proveedor de atenci?n primaria esta ma?freddie para jake reevaluaci?n y un tratamiento ambulatorio adicional. Regrese a la jarrett de emergencias por cualquier empeoramiento dandre de meredith s ?ntomas. Prescriptions: No Action prednisone 50 mg tablet 50 mg PO DAILY Qty: 5 RF: 0 albuterol sulfate 90 mcg/actuation HFA aerosol inhaler 2 puff inhalation Q4-6H PRN (Reason: shortness of breath or wheezing) Qty: 8.5 RF: 0 cephalexin [Keflex] 500 mg capsule 500 mg PO Q12H 7 Days Qty: 14 RF: 0 phenazopyridine [Pyridium] 200 mg tablet 200 mg PO TID PRN (Reason: pain) Qty: 6 RF: 0 Adult Robitussin Peak Cold M-S 5-10-100 mg/5 mL liquid 10 ml PO Q4H PRN (Reason: cold symptoms) Qty: 237 RF: 0 Referrals: Physician,Unknown [Primary Care Provider] - 2 days Print Language: Citizen Of [place] [facility] Past Medical History Source: nursing notes reviewed Medical History Common cold Hypertension Social History Social History Alcohol intake: never Advance Directives: No Advance Directives Information Provided: No Patient : No
[2020-11-27 03:34] LABS: Amorphous Sediment Urine 2+ /LPF; Mucus Urine TRACE /LPF; RBC Urine 0-2 /HPF (0); Squamous Epithelial Cell Urine 1+ /LPF; WBC Urine 0 /HPF (0-4)
[2020-11-27 03:47] LABS: MANUAL DIFF FLAG NO
[2020-11-27 03:49] LABS: Basophils Absolute Auto 0.1 X10*3/uL (0.0-0.2); Basophils Percent Auto 0.5 % (0-2); Eosinophils Absolute Auto 0.5 X10*3/uL (0.0-0.4); Eosinophils Percent Auto 4.8 % (0-4); Hematocrit 29.9 % (37-47); Hemoglobin 9.1 g/dl (12.0-16.0); Imm Gran Abs Auto 0.03 X10*3/uL (0.00-0.03); Imm Gran Pct Auto 0.3 % (0.0-0.4); Lymphocytes Absolute Auto 2.4 X10*3/uL (1.2-4.9); Lymphocytes Percent Auto 24.9 % (20-40); Mean Corpuscular HGB Conc 30.4 g/dl (31.0-35.0); Mean Corpuscular Hemoglobin 21.2 pg (27.0-33.0); Mean Corpuscular Volume 69.5 fL (80-98); Mean Platelet Volume 9.1 fL (9.4-12.3); Monocytes Absolute Auto 0.9 X10*3/uL (0.1-1.2); Monocytes Percent Auto 9.5 % (2-11); Neutrophils Absolute Auto 5.8 X10*3/uL (2.0-8.3); Platelet Count 357 X10*3/uL (160-400); Red Cell Distribution Width 18.5 % (11.0-16.0); White Blood Count 9.7 X10*3/uL (4.8-10.8)
[2020-11-27 04:19] LABS: Alanine Aminotransferase 11 U/L (0-31); Albumin Level 3.8 g/dL (3.5-5.0); Alkaline Phosphatase 106 U/L (39-117); Anion Gap 12 (12-20); Aspartate Amino Transferase 13 U/L (5-31); Bilirubin Total 0.2 mg/dL (0.0-1.0); Blood Urea Nitrogen 16 mg/dL (9-16); Calcium 9.1 mg/dL (8.4-10.2); Carbon Dioxide 27 mmol/L (22-29); Chloride 106 mmol/L (96-108); Creatinine Clr Calc Pharmacy 79.4; Estimated Glomerular Filt Rate > 60; Glucose Random 91 mg/dL (60-115); Potassium 4.2 mmol/L (3.3-5.1); Sodium 141 mmol/L (135-145); Total Protein 6.6 g/dL (6.5-8.0)
[2020-11-27] MEDS: Acetaminophen 325 MG TABLET 975 MG PO (04:54)
[2020-11-27] MEDS: Ibuprofen 400 MG TABLET PO (04:54)
[2020-11-27 04:55] VITALS: BP 151/88; PULSE 76; RESP 16; O2SAT 98
== END 2020-11-27 05:14 | disposition home or self-care (01) ==
PROVIDERS: Emergency Provider Student in an Organized Health Care Education/Training Program
DX: M54.9 Dorsalgia, unspecified (principal); I10 Essential (primary) hypertension
CPT/HCPCS: 36415; 80053; 81001; 81025; 85025; 99283; 99284

== ENCOUNTER 2020-12-13 10:55 | Outpatient (REF) | payer OTHER, SELFPAY ==
--- NOTE | ~2020-12-13 | XR_ITS ---
EXAMINATION: XR LUMBOSACRAL SPINE CLINICAL INFORMATION: Left-sided sciatica. COMPARISON: 11/10/2019 TECHNIQUE: Three views of the lumbosacral spine. FINDINGS: There are 5 [id number] lumbar vertebrae. No acute fracture, spondylolisthesis, or spondylolysis is identified. Pedicles intact. Sacroiliac joints unremarkable. There is mild narrowing of the L5-S1 disc space. IUD seen in place. XR/XR lumbar spine 2-3V IMPRESSION: No significant bony abnormality of the lumbar spine identified.
== END 2020-12-13 10:56 | disposition home or self-care (01) ==
LOC: HO.XRAY 10:55
PROVIDERS: PCP Internal Medicine; Visit Provider Internal Medicine
DX: M54.32 Sciatica, left side (principal)
CPT/HCPCS: 72100

== ENCOUNTER 2022-02-18 12:24 | Emergency (ER) | payer OTHER, SELFPAY ==
--- NOTE | ~2022-02-18 | CT_ITS ---
EXAMINATION: CT ABDOMEN AND PELVIS WITHOUT CONTRAST CLINICAL INFORMATION: Lower abdominal pain of uncertain etiology. COMPARISON: 07/01/[address] TECHNIQUE: Multidetector volumetric imaging was performed from the superior aspect of the liver through the pubic symphysis. Sagittal and coronal reformatted images were obtained on the technologist's workstation. This CT examination was performed using dose optimization techniques as appropriate, variously including the following: *Automated exposure control *Adjustment of mA and/or kV according to patient size (this includes techniques or standardized protocols for targeted exams where dose is matched to indication/reason for exam; i.e. extremities or head) *Use of iterative reconstruction technique DLP: 715 mGy-cm FINDINGS: LUNG BASES: The visualized lung bases are unremarkable. LIVER, GALLBLADDER, AND BILIARY TREE: The liver is normal in size, shape, and attenuation. No focal hepatic lesion or biliary ductal dilatation is present. The gallbladder is unremarkable with no evidence of radiopaque gallstones, gallbladder wall thickening, or obvious pericholecystic inflammatory changes. PANCREAS: Unremarkable. SPLEEN: Unremarkable. ADRENAL GLANDS: Unremarkable. KIDNEYS AND URETERS: Subtle low-attenuation probable cyst in the lateral pole of the left kidney again seen. Otherwise the kidneys are normal in size, shape, and attenuation. No hydronephrosis, hydroureter, or calculi seen. No perinephric stranding. BLADDER: Unremarkable. GASTROINTESTINAL TRACT: The small and large bowel are unremarkable. The retrocecal appendix is unremarkable. ABDOMINAL WALL: No significant hernia is appreciated. LYMPH NODES: Normal. VASCULAR: Vascular calculation within the aorta PELVIC VISCERA: IUD within the anteroverted uterus OSSEOUS STRUCTURES: Unremarkable. CT/CT abdomen pelvis wo IV con IMPRESSION: No acute intra-abdominal process seen. Fleischner guidelines were followed.
[2022-02-18 13:19] VITALS: BP 155/87; PULSE 74; RESP 18; TEMP 36.2; O2SAT 99; BMI 32.9
[2022-02-18 13:45] LABS: Appearance Urine Cloudy; Color Urine Yellow; Glucose Urine UA Negative (Negative); Leukocyte Esterase Urine Small (1+) (Negative); Nitrite Urine Negative (Negative); Urine Blood Negative (Negative); Urine Ketones Negative (Negative); Urine Protein Negative (Neg-Trace)
[2022-02-18 13:46] LABS: UPreg QC Valid YES; Urine Pregnancy NEGATIVE (NEGATIVE)
[2022-02-18 14:11] LABS: Bacteria Urine Trace (None Seen); Hyaline Casts Urine 0-2 /LPF (0-2); Squamous Epithelial Cell Urine 0-2 /HPF (0-2); UACC Culture Trigger YES; WBC Urine 0-5 /HPF (0-5)
[2022-02-18 15:00] LABS: MANUAL DIFF FLAG NO
[2022-02-18 15:02] LABS: Basophils Absolute Auto 0.1 X10*3/uL (0.0-0.2); Basophils Percent Auto 0.7 % (0-2); Eosinophils Absolute Auto 0.5 X10*3/uL (0.0-0.4); Eosinophils Percent Auto 4.4 % (0-4); Hematocrit 35.3 % (37.0-47.0); Hemoglobin 11.2 g/dl (12.0-16.0); Imm Gran Abs Auto 0.03 X10*3/uL (0.00-0.03); Imm Gran Pct Auto 0.3 % (0.0-0.4); Lymphocytes Absolute Auto 2.3 X10*3/uL (1.2-4.9); Mean Corpuscular HGB Conc 31.7 g/dl (31.0-35.0); Mean Corpuscular Hemoglobin 23.3 pg (27.0-33.0); Mean Corpuscular Volume 73.5 fL (80.0-98.0); Mean Platelet Volume 9.5 fL (9.4-12.3); Monocytes Absolute Auto 0.8 X10*3/uL (0.1-1.2); Monocytes Percent Auto 7.5 % (2-11); Neutrophils Absolute Auto 6.9 x10*3/uL (2.0-8.3); Neutrophils Percent Auto 65.1 % (45-73); Platelet Count 376 X10*3/uL (160-400); Red Cell Distribution Width 16.9 % (11.0-16.0); White Blood Count 10.6 X10*3/uL (4.8-10.8)
[2022-02-18 15:18] LABS: Alanine Aminotransferase 12 U/L (0-31); Albumin Level 4.1 g/dL (3.5-5.0); Alkaline Phosphatase 104 U/L (39-117); Anion Gap 13 (12-20); Aspartate Amino Transferase 12 U/L (5-31); Bilirubin Direct < 0.2 mg/dL (0.0-0.5); Bilirubin Total 0.3 mg/dL (0.0-1.0); Blood Urea Nitrogen 12 mg/dL (9-16); Calcium 9.2 mg/dL (8.4-10.2); Carbon Dioxide 25 mmol/L (22-29); Chloride 106 mmol/L (96-108); Creatinine Clr Calc Pharmacy 85.4; Estimated Glomerular Filt Rate > 60; Glucose Random 87 mg/dL (60-115); Lipase 12 U/L (8-78); Potassium 4.6 mmol/L (3.3-5.1); Sodium 139 mmol/L (135-145)
--- NOTE | 2022-02-18 20:05 | ED_ITS ---
HPI - Female Genitourinary General Chief complaint: Abdominal Pain Stated complaint: ovaries pain Time Seen by Provider: 02/18/22 20:05 Source: patient Mode of arrival: ambulatory Limitations: no limitations History of Present Illness HPI Narrative: Patient postmenopausal 01/28 complaining of diffuse abdominal pain worried about the ovaries no fever no chills no nausea no vomiting no fever no chills no urinary complaints appetite normal Related Data Previous Rx's Medication Instructions Recorded ferrous sulfate 325 mg (65 mg 325 mg PO BID 90 days #180 tabs 05/22/21 iron) tablet lisinopril 10 mg tablet 10 mg PO DAILY 90 days #90 tabs 06/30/21 dicyclomine 20 mg tablet 20 mg PO TID PRN abdominal pain 02/18/22 #30 tabs Allergies Allergy/AdvReac Type Severity Reaction Status Date / Time No Known Allergies Allergy Verified 02/18/22 11:36 [No Known Allergies*] Review of Systems Review of Systems: Yes all other systems are reviewed and are negative FORMERLY [facility] Past Medical History Medical History Hypertension Iron deficiency anemia due to chronic blood loss Left sided sciatica Obese Shortness of breath Surgical History No pertinent past surgical history Family History Family History Mother Diabetes Hypertension Father No problems noted. Social History Social History Housing: Apartment Alcohol intake: never Patient Tobacco Use Status: Never used Tobacco e-Cigarette/Vaping Use: Never Used Second Hand Smoke Exposure: No Advance Directives: No Advance Directives Information Provided: No service: No Current occupational status: unemployed Physical Exam Vital Signs: Vital Signs: Last Vital Signs Temp 99.1 F 02/18/22 20:17 Pulse 85 02/18/22 20:17 Resp 18 02/18/22 20:17 BP 179/86 H 02/18/22 20:17 Pulse Ox 98 02/18/22 20:17 O2 Del Method 02/18/22 20:17 BMI result Body Mass Index 32.9 Appearance: Alert. Oriented X3. No acute distress. Eyes: PERRLA, No Nystagmus ENT: Pharynx normal. Oral Mucosa moist Neck: Normal inspection. Neck supple. CVS: Normal heart rate and rhythm. Pulses normal. Respiratory: No respiratory distress. Equal air entry bilateral, no wheezing/rales/rhonchi Abdomen: Soft and mild diffuse tenderness no rebound tenderness or guarding, Bowel sounds are present, no mass palpable, no CVA tenderness Skin: Skin warm and dry. Normal skin color. Normal skin turgor. Extremities: No lower extremity edema. No calf tenderness Neuro: Oriented X 3. No motor deficit. MDM - Female Genitourinary MDM Narrative Medical decision making narrative: Patient nonspecific abdominal pain likely IBS CT scan negative for any acute pathology labs are stable will discharge patient home on Bentyl Lab Data Attestation: I reviewed the patient's lab results. Result diagrams: 02/18/22 14:54 02/18/22 14:54 Labs: Lab Results 02/18/22 02/18/22 02/18/22 Range/Units 13:28 13:28 14:54 WBC 10.6 (4.8-10.8) X10*3/uL RBC 4.80 (4.20-5.50) X10*6/uL Hgb 11.2 L (12.0-16.0) g/dl Hct 35.3 L (37.0-47.0) % MCV 73.5 L (80.0-98.0) fL MCH 23.3 L (27.0-33.0) pg MCHC 31.7 (31.0-35.0) g/dl RDW 16.9 H (11.0-16.0) % Plt Count 376 (160-400) X10*3/uL MPV 9.5 (9.4-12.3) fL Immature Gran % (Auto) 0.3 (0.0-0.4) % Neut % (Auto) 65.1 (45-73) % Lymph % (Auto) 22.0 (20-40) % [place] % (Auto) 7.5 (2-11) % Eos % (Auto) 4.4 H (0-4) % Baso % (Auto) 0.7 (0-2) % Lymph # (Auto) 2.3 (1.2-4.9) X10*3/uL [place] # (Auto) 0.8 (0.1-1.2) X10*3/uL Eos # (Auto) 0.5 H (0.0-0.4) X10*3/uL Baso # (Auto) 0.1 (0.0-0.2) X10*3/uL Abs Immat Gran (auto) 0.03 (0.00-0.03) X10*3/uL Absolute Neuts (auto) 6.9 (2.0-8.3) x10*3/uL Absolute Nucleated RBC 0.000 (0.0-0.012) X10*3/uL Nucleated RBC % (auto) 0.0 (0.0-0.2) /100WBC Sodium (135-145) mmol/L Potassium (3.3-5.1) mmol/L Chloride (96-108) mmol/L Carbon Dioxide (22-29) mmol/L Anion Gap (12-20) BUN (9-16) mg/dL Creatinine (0.5-1.4) mg/dL Estim Creat Clear Calc Estimated GFR Random Glucose (60-115) mg/dL Calcium (8.4-10.2) mg/dL Total Bilirubin (0.0-1.0) mg/dL Direct Bilirubin (0.0-0.5) mg/dL AST (5-31) U/L ALT (0-31) U/L Alkaline Phosphatase (39-117) U/L Total Protein (6.5-8.0) g/dL Albumin (3.5-5.0) g/dL Lipase (8-78) U/L Urine Color Yellow Urine Appearance Cloudy Urine pH 7.0 (5.0-9.0) Ur Specific [place] 1.020 (1.005-1.025) Urine Protein Negative (Neg-Trace) mg/dL Urine Glucose (UA) Negative (Negative) mg/dL Urine Ketones Negative (Negative) mg/dL Urine Blood Negative (Negative) Urine Nitrite Negative (Negative) Ur Leukocyte Esterase Small (1+) H (Negative) Urine RBC 3-5 H (0-2) /HPF Urine WBC 0-5 (0-5) /HPF Ur Squamous Epith Cells 0-2 (0-2) /HPF Urine Bacteria Trace (None Seen) Hyaline Casts 0-2 (0-2) /LPF Urine Test NEGATIVE (NEGATIVE) 02/18/22 Range/Units 14:54 WBC (4.8-10.8) X10*3/uL RBC (4.20-5.50) X10*6/uL Hgb (12.0-16.0) g/dl Hct (37.0-47.0) % MCV (80.0-98.0) fL MCH (27.0-33.0) pg MCHC (31.0-35.0) g/dl RDW (11.0-16.0) % Plt Count (160-400) X10*3/uL MPV (9.4-12.3) fL Immature Gran % (Auto) (0.0-0.4) % Neut % (Auto) (45-73) % Lymph % (Auto) (20-40) % [place] % (Auto) (2-11) % Eos % (Auto) (0-4) % Baso % (Auto) (0-2) % Lymph # (Auto) (1.2-4.9) X10*3/uL [place] # (Auto) (0.1-1.2) X10*3/uL Eos # (Auto) (0.0-0.4) X10*3/uL Baso # (Auto) (0.0-0.2) X10*3/uL Abs Immat Gran (auto) (0.00-0.03) X10*3/uL Absolute Neuts (auto) (2.0-8.3) x10*3/uL Absolute Nucleated RBC (0.0-0.012) X10*3/uL Nucleated RBC % (auto) (0.0-0.2) /100WBC Sodium 139 (135-145) mmol/L Potassium 4.6 (3.3-5.1) mmol/L Chloride 106 (96-108) mmol/L Carbon Dioxide 25 (22-29) mmol/L Anion Gap 13 (12-20) BUN 12 (9-16) mg/dL Creatinine 0.86 (0.5-1.4) mg/dL Estim Creat Clear Calc 85.4 Estimated GFR > 60 Random Glucose 87 (60-115) mg/dL Calcium 9.2 (8.4-10.2) mg/dL Total Bilirubin 0.3 (0.0-1.0) mg/dL Direct Bilirubin < 0.2 (0.0-0.5) mg/dL AST 12 (5-31) U/L ALT 12 (0-31) U/L Alkaline Phosphatase 104 (39-117) U/L Total Protein 7.0 (6.5-8.0) g/dL Albumin 4.1 (3.5-5.0) g/dL Lipase 12 (8-78) U/L Urine Color Urine Appearance Urine pH (5.0-9.0) Ur Specific [place] (1.005-1.025) Urine Protein (Neg-Trace) mg/dL Urine Glucose (UA) (Negative) mg/dL Urine Ketones (Negative) mg/dL Urine Blood (Negative) Urine Nitrite (Negative) Ur Leukocyte Esterase (Negative) Urine RBC (0-2) /HPF Urine WBC (0-5) /HPF Ur Squamous Epith Cells (0-2) /HPF Urine Bacteria (None Seen) Hyaline Casts (0-2) /LPF Urine Test (NEGATIVE) Discharge Plan Discharge Clinical Impression: Abdominal pain Patient Disposition: Home, Self-Care Instructions: Abdominal Pain (ED) Additional Instructions: Possibly you have irritable bowel syndrome Take Bentyl 1 tablet every 8 hours as needed for pain Follow with PCP if not better Posiblemente tengas el s?ndrome del intestino irritable [place] Bentyl 1 tableta cada 8 horas seg?n sea necesario para el dolor Siga con PCP si no mejor Prescriptions: New dicyclomine 20 mg tablet 20 mg PO TID PRN (Reason: abdominal pain) Qty: 30 0RF No Action ferrous sulfate 325 mg (65 mg iron) tablet 325 mg PO BID 90 Days Qty: 180 0RF lisinopril 10 mg tablet 10 mg PO DAILY 90 Days Qty: 90 1RF Interventions: ED Discharge Assessment Last Done: 02/18/22 21:20 Discharge Date/Time: 02/18/22 21:21 Print Language: [place]ese
[2022-02-18 20:17] VITALS: BP 179/86; PULSE 85; RESP 18; TEMP 37.3; O2SAT 98
[2022-02-18] MEDS: Dicyclomine HCl 10 MG CAPSULE 20 MG PO (21:20)
== END 2022-02-18 21:21 | disposition home or self-care (01) ==
PROVIDERS: Emergency Provider Internal Medicine; PCP Internal Medicine
DX: R10.9 Unspecified abdominal pain (principal); I10 Essential (primary) hypertension; Z79.899 Other long term (current) drug therapy
CPT/HCPCS: 36415; 74176; 80053; 81001; 81025; 82248; 83690; 85025; 87086; 99283; 99284

== ENCOUNTER 2022-03-06 14:37 | Outpatient (REF) | payer OTHER, SELFPAY ==
[2022-03-07 07:18] LABS: CT PCR NOT DETECTED (Not Detect.); NG PCR NOT DETECTED (Not Detect.)
[2022-03-07 13:10] LABS: BV Int Neg Control Negative (Negative); BV Int Pos Control Positive (Positive)
[2022-03-09 14:16] LABS: HPV mRNA E6/E7 rflx Not Detected (Not Detected)
== END 2022-03-06 14:38 | disposition home or self-care (01) ==
LOC: HO.LNP 14:37
PROVIDERS: Visit Provider Advanced Practice Midwife
DX: Z01.419 Encounter for gynecological examination (general) (routine) without abnormal findings (principal); Z11.51 Encounter for screening for human papillomavirus (HPV); Z11.3 Encounter for screening for infections with a predominantly sexual mode of transmission
CPT/HCPCS: 87480; 87491; 87510; 87591; 87624; 87660; 88142

== ENCOUNTER 2023-05-11 09:07 | Emergency (ER) | payer OTHER, SELFPAY ==
--- NOTE | ~2023-05-11 | US_ITS ---
EXAMINATION: US PELVIS CLINICAL INFORMATION: Pelvic pain COMPARISON: Portions of a previous ultrasound 10/30/19 TECHNIQUE: Ultrasound of the pelvis is performed using both transabdominal and transvaginal transducers along with Doppler. Transvaginal imaging is performed due to inadequate visualization transabdominally. FINDINGS: Uterus: The uterus is anteverted and measures 13.3 x 7.6 x 7.5 cm. The estimated cervical length is 3.7 cm. There are some small nabothian cysts. There is a linear bright reflector consistent with an IUD which appears appropriately positioned. There are highly intense linear segments of the IUD by some gaps in the bright reflectors. Based upon review of previous CT I suspect this is related to the type and brand of IUD. The double wall endometrial thickness is 7 mm. The uterine contour is smooth. There is a 1.0 cm oval area of altered echotexture which is likely within the myometrium. This appears new. No other suspicious abnormality within the myometrium The junctional zone is not well defined. Adnexa: The right ovary measures approximately 2.9 x 2.1 x 1.8 cm. The estimated right ovarian volume is 6 mL. There is some color signal in the expected region of the right ovary. No suspicious right adnexal mass or collection. Left ovary measures 2.6 x 1.1 x 1.2 cm. The estimated left ovarian finding is approximately 2 mL. No suspicious left adnexal mass or collection. No suspicious color signal in the left adnexa. Small amount of free pelvic fluid is nonspecific US/US pelvic and transvaginal IMPRESSION: There is an IUD present. There are differing degrees in intensity of the linear bright reflector. I suspect this is related to thicker segments rather than fracture. No suspicious adnexal mass or collection Oval 1.0 cm area of altered echotexture in the myometrium. Statistically this is most consistent with a fibroid
[2023-05-11 09:11] VITALS: BP 206/94; PULSE 90; RESP 14; TEMP 36.6; O2SAT 99; BMI 34.4
[2023-05-11 09:34] VITALS: BP 170/93; PULSE 75; RESP 18; O2SAT 99
--- NOTE | 2023-05-11 09:38 | PC.NURSE ---
Pt coming in for x2 days of lower abd pain, +bowel sounds,abd soft. PWD. Nausea no vomiting. Denies urinary or bowel complaints, Pt has HTN, has not been taking medication for a few months.
[2023-05-11 10:25] LABS: MANUAL DIFF FLAG NO
[2023-05-11 10:26] LABS: Basophils Absolute Auto 0.1 X10*3/uL (0.0-0.2); Basophils Percent Auto 0.7 % (0-2); Eosinophils Absolute Auto 0.4 X10*3/uL (0.0-0.4); Eosinophils Percent Auto 3.9 % (0-4); Hematocrit 35.5 % (37.0-47.0); Hemoglobin 11.1 g/dl (12.0-16.0); Imm Gran Abs Auto 0.03 X10*3/uL (0.00-0.03); Imm Gran Pct Auto 0.3 % (0.0-0.4); Lymphocytes Absolute Auto 1.6 X10*3/uL (1.2-4.9); Lymphocytes Percent Auto 17.2 % (20-40); Mean Corpuscular HGB Conc 31.3 g/dl (31.0-35.0); Mean Corpuscular Hemoglobin 23.3 pg (27.0-33.0); Mean Corpuscular Volume 74.4 fL (80.0-98.0); Mean Platelet Volume 9.1 fL (9.4-12.3); Monocytes Absolute Auto 0.8 X10*3/uL (0.1-1.2); Monocytes Percent Auto 8.5 % (2-11); Neutrophils Absolute Auto 6.6 x10*3/uL (2.0-8.3); Neutrophils Percent Auto 69.4 % (45-73); Platelet Count 372 X10*3/uL (160-400); Red Blood Count 4.77 X10*6/uL (4.20-5.50); Red Cell Distribution Width 15.9 % (11.0-16.0); White Blood Count 9.5 X10*3/uL (4.8-10.8)
[2023-05-11 10:47] LABS: Appearance Urine Cloudy; Color Urine RED; Glucose Urine UA Negative (Negative); Leukocyte Esterase Urine Small (1+) (Negative); Nitrite Urine Negative (Negative); Specific Gravity - Urine 1.025 (1.005-1.025); UMIC TRIGGER UACC YES; Urine Blood Large (3+) (Negative); Urine Ketones Negative (Negative); Urine Protein 100 (2+) mg/dL (Neg-Trace)
[2023-05-11 10:49] LABS: UPreg QC Valid YES; Urine Pregnancy NEGATIVE (NEGATIVE)
[2023-05-11 10:52] LABS: Bacteria Urine None Seen (None Seen); Hyaline Casts Urine 0-2 /LPF (0-2); RBC Urine >20 /HPF (0-2); Squamous Epithelial Cell Urine 0-2 /HPF (0-2); UACC Culture Trigger YES; WBC Urine 21-50 /HPF (0-5)
[2023-05-11 11:12] LABS: Alanine Aminotransferase 11 U/L (0-31); Albumin Level 3.8 g/dL (3.5-5.0); Alkaline Phosphatase 89 U/L (39-117); Anion Gap 13 (12-20); Aspartate Amino Transferase 13 U/L (5-31); Bilirubin Direct 0.1 mg/dL (0.0-0.5); Bilirubin Total 0.4 mg/dL (0.0-1.0); Blood Urea Nitrogen 17 mg/dL (9-16); Calcium 8.8 mg/dL (8.4-10.2); Carbon Dioxide 23 mmol/L (22-29); Chloride 108 mmol/L (96-108); Creatinine Clr Calc Pharmacy 75.8; Estimated Glomerular Filt Rate > 60; Glucose Random 100 mg/dL (60-115); Lipase 8 U/L (8-78); Potassium 4.2 mmol/L (3.3-5.1); Sodium 140 mmol/L (135-145); Total Protein 6.9 g/dL (6.5-8.0)
--- NOTE | 2023-05-11 11:34 | ED_ITS ---
HPI - Abdominal Pain General Chief Complaint: Abdominal Pain Stated Complaint: Lower abd pain Time Seen by Provider: 05/11/23 11:06 Source: patient, RN notes reviewed and site interpreter Mode of arrival: ambulatory Limitations: language barrier History of Present Illness HPI narrative: A 47-year-old female, with a history of hypertension, presenting to the emergency department with complaints of pelvic pain since May 05. Patient states that she started her menses on May 05 and has had pelvic pain. She states that over the last several days it has worsened. She states yesterday she developed some nausea, no vomiting. She states that the pain is constant but waxes and wanes in severity. Denies history of pelvic pain in the past. She states that she currently has an IUD. Over the past year she has been in a Anais menopausal state, intermittently gets her period, she states that this past month she believes that she has had her menses twice. She denies any dysuria, uncertain about hematuria due to vaginal bleeding. No urinary frequency or urgency. She is sexually active with 1 partner, no concerns for sexually transmitted infections. No abnormal vaginal discharge. No other complaints or concerns at this time. MD elicited complaint: abdominal pain Pertinent past history: none Onset (ago): day(s) Pain Consistency: constant Location: pelvis Severity: moderate Quality: cramping and stabbing Radiation: none Migration to: no migration Exacerbating factors: nothing Relieving factors: nothing Associated symptoms: nausea Related Data Home Medications Medication Instructions Recorded Confirmed copper 380 square mm intrauterine intrauterine 03/06/22 03/06/22 device (ParaGard T 380A) omeprazole 20 mg capsule,delayed 20 mg PO DAILY PRN Heartburn 03/08/22 03/08/22 release Previous Rx's Medication Instructions Recorded norethindrone (contraceptive) 0.35 0.35 mg PO DAILY #84 tabs 03/06/22 mg tablet metronidazole 500 mg tablet 500 mg PO BID 7 days #14 tabs 03/12/22 albuterol sulfate 90 mcg/actuation 2 puff inhalation 6XD PRN 04/05/22 aerosol inhaler shortness of breath or wheezing 30 days #1 ea ferrous sulfate 325 mg (65 mg 325 mg PO DAILY 90 days #90 tabs 06/20/22 iron) tablet lisinopril 20 mg tablet 20 mg PO DAILY 90 days #90 tabs 06/20/22 ibuprofen 600 mg tablet 600 mg PO Q6H PRN pain #30 tabs 05/11/23 Allergies Allergy/AdvReac Type Severity Reaction Status Date / Time No Known Allergies Allergy Verified 04/05/22 13:35 [No Known Allergies*] Review of Systems Review of Systems Yes all other systems are reviewed and are negative Constitutional: Reports as per [facility] Past Medical History Attestation statement: The following information was validated with the patient. Medical History Shortness of breath Iron deficiency anemia due to chronic blood loss Obese Left sided sciatica Hypertension Surgical History No pertinent past surgical history Family History Family History Mother Diabetes Hypertension Father No problems noted. Social History Social History Household Members: Spouse, Family and Children Housing: Apartment Alcohol intake: never Patient Tobacco Use Status: Never used Tobacco Smoked in Last 30 Days: No e-Cigarette/Vaping Use: Never Used Second Hand Smoke Exposure: No Use of substances other than those prescribed or required for medical reasons: No Advance Directives: No Patient : No service: No Current occupational status: unemployed Cognitive needs: No Hearing needs: No Vision needs: Yes Physical Exam ED Vital Signs: Vital Signs - 24 hr 05/11/23 09:11 05/11/23 09:34 05/11/23 11:42 Temperature 98 F 98.6 F Pulse Rate 90 75 74 Respiratory Rate 14 18 16 Blood Pressure 206/94 H 170/93 H 160/113 H Pulse Oximetry 99 99 98 Oxygen Delivery Method Room Air Room Air Room Air 05/11/23 13:53 Temperature 98.3 F Pulse Rate 85 Respiratory Rate 16 Blood Pressure 146/87 H Pulse Oximetry 95 Oxygen Delivery Method Room Air BMI result Body Mass Index 34.4 Const General: cooperative, comfortable and no acute distress Orientation/consciousness: patient oriented x3 Limitations: no limitations HENMT Head: Yes normal to inspection, Yes normocephalic and Yes atraumatic Ears: hearing grossly normal bilaterally General nose exam: Normal external nose present Face and sinus: Yes normal facial exam Mouth: Normal oral and palatal mucosa present, oropharynx normal and moist mucous membranes Throat: Yes posterior oropharynx normal Eyes General: appearance normal, both eyes and all related structures Eyelids: Yes eyelids normal Conjunctivae: conjunctivae normal Sclerae: sclerae normal Pupils: Equal, round and reactive pupils present EOM: EOMs intact bilaterally Neck Neck: Yes normal visual inspection, Yes full ROM and Yes no lymphadenopathy Lymphatic: no lymphadenopathy noted Chest Chest palpation & inspection: normal inspection of the chest Resp Effort & Inspection: normal respiratory effort and able to speak in complete sentences Auscultation: clear to auscultation bilaterally, no crackles, no rales, no rhonchi and no wheezes Cardio Rate: regular rate Rhythm: regular rhythm Heart sounds: S1 normal heart sound present and S2 normal heart sound present GI Other: Abdomen is soft, with mild tenderness to palpation in the suprapubic region, no tenderness along McBurney's point, no rebound or guarding. Normoactive bowel sounds present in all 4 quadrants. Inspection: Yes normal to inspection Other: Pelvic examination was performed with armature winder automotive present at all times, GISELLE [place] program technician General: Yes Bimanual renal exam normal bilaterally External Female Exam: normal external appearance, normal appearance of the urethra, No Abnormal introitus and No erythema Speculum Exam - Vagina: normal appearance of the vagina, normal palpation, other (Blood noted in the vaginal vault) and introitus not gaping Speculum Exam - Cervix: normal appearance of the cervix Bimanual exam- vagina & uterus: normal palpation Bimanual Exam- Adnexa, other: normal adnexae and no masses Skin General skin exam: no rashes or lesions noted Trauma: no lacerations or abrasions Wounds: no wounds Neuro General: patient oriented x3 and moves all extremities Cranial nerves: Yes Equal, round and reactive pupils present Extrem General: Yes normal to inspection Right upper extremity: normal to inspection Left upper extremity: normal to inspection Right lower extremity: normal to inspection Left lower extremity: normal to inspection Course Reevaluation(s) Reevaluation #1: Pelvic ultrasound returns, ultrasound revealing IUD that is present, no adnexal masses or collection, there is an oval 1.0 cm area of altered echotexture of the myometrium. Per radiology interpretation, this is ?statistically most consistent with a fibroid? Time: 14:44 Reevaluation #2: Pelvic examination was performed, no abnormalities seen on examination, swabs were collected and sent to the lab. Discussed workup with patient and spanish interpreter/translator at bedside. Advised to follow-up with OBGYN in regards to this visit. Advised to call tomorrow to make appointment. Educated take ibuprofen and Tylenol as needed for pain. Patient understands and agrees with plan. Time: 15:09 Medical Decision Making Medical Decision Making [facility] Narrative: 47-year-old German-speaking female presenting to the emergency department with complaints of pelvic pain over the last several days. On arrival, patient is well-appearing, hypertensive at 206/94 which improved to 170/93 when she received a room in the main emergency department. On examination, patient has mild tenderness to palpation along the suprapubic region. Urine was collected, revealing large blood, small leuks, rbc's and wbc's, no bacteria seen. Unclear whether not the urine sample appears as way due to current menses. She has no urinary symptoms. HCG negative. Plan: Labs, UA, U preg, ultrasound Differential Diagnosis Differential Diagnoses: The differential diagnosis associated with the presentation includes Uterine fibroid, ovarian torsion, abnormal uterine bleeding, Admission/Observation Consideration of admission/observation: Escalation of care including admission/observation considered Patient would have been admitted to the hospital had her work up had any findings where hospital admission was appropriate and her clinical presentation warranted hospital admission. Lab Data [facility] Lab Attestation statement: I reviewed the patient's lab results. H&H 11.1/35.5%, appears around her baseline, chemistry within normal limits. See [facility] for further details 05/11/23 10:19 05/11/23 10:19 Labs: Lab Results 05/11/23 05/11/23 Range/Units 10:19 10:41 WBC 9.5 (4.8-10.8) X10*3/uL RBC 4.77 (4.20-5.50) X10*6/uL Hgb 11.1 L (12.0-16.0) g/dl Hct 35.5 L (37.0-47.0) % MCV 74.4 L (80.0-98.0) fL MCH 23.3 L (27.0-33.0) pg MCHC 31.3 (31.0-35.0) g/dl RDW 15.9 (11.0-16.0) % Plt Count 372 (160-400) X10*3/uL MPV 9.1 L (9.4-12.3) fL Immature Gran % (Auto) 0.3 (0.0-0.4) % Neut % (Auto) 69.4 (45-73) % Lymph % (Auto) 17.2 L (20-40) % [place] % (Auto) 8.5 (2-11) % Eos % (Auto) 3.9 (0-4) % Baso % (Auto) 0.7 (0-2) % Lymph # (Auto) 1.6 (1.2-4.9) X10*3/uL [place] # (Auto) 0.8 (0.1-1.2) X10*3/uL Eos # (Auto) 0.4 (0.0-0.4) X10*3/uL Baso # (Auto) 0.1 (0.0-0.2) X10*3/uL Abs Immat Gran (auto) 0.03 (0.00-0.03) X10*3/uL Absolute Neuts (auto) 6.6 (2.0-8.3) x10*3/uL Absolute Nucleated RBC 0.000 (0.0-0.012) X10*3/uL Nucleated RBC % (auto) 0.0 (0.0-0.2) /100WBC Sodium 140 (135-145) mmol/L Potassium 4.2 (3.3-5.1) mmol/L Chloride 108 (96-108) mmol/L Carbon Dioxide 23 (22-29) mmol/L Anion Gap 13 (12-20) BUN 17 H (9-16) mg/dL Creatinine 0.98 (0.5-1.4) mg/dL Estim Creat Clear Calc 75.8 Estimated GFR > 60 Random Glucose 100 (60-115) mg/dL Calcium 8.8 (8.4-10.2) mg/dL Total Bilirubin 0.4 (0.0-1.0) mg/dL Direct Bilirubin 0.1 (0.0-0.5) mg/dL AST 13 (5-31) U/L ALT 11 (0-31) U/L Alkaline Phosphatase 89 (39-117) U/L Total Protein 6.9 (6.5-8.0) g/dL Albumin 3.8 (3.5-5.0) g/dL Lipase 8 (8-78) U/L Urine Color RED Urine Appearance Cloudy Urine pH 6.0 (5.0-9.0) Ur Specific [place] 1.025 (1.005-1.025) Urine Protein 100 (2+) H (Neg-Trace) mg/dL Urine Glucose (UA) Negative (Negative) mg/dL Urine Ketones Negative (Negative) mg/dL Urine Blood Large (3+) H (Negative) Urine Nitrite Negative (Negative) Ur Leukocyte Esterase Small (1+) H (Negative) Urine RBC >20 H (0-2) /HPF Urine WBC 21-50 H (0-5) /HPF Ur Squamous Epith Cells 0-2 (0-2) /HPF Urine Bacteria None Seen (None Seen) Hyaline Casts 0-2 (0-2) /LPF Urine Test NEGATIVE (NEGATIVE) Radiology Impression Discussion of test interpretation with radiology: I have reviewed the radiologist's reading. Radiologist Impression: EXAMINATION: US PELVIS CLINICAL INFORMATION: Pelvic pain COMPARISON: Portions of a previous ultrasound 10/30/19 TECHNIQUE: Ultrasound of the pelvis is performed using both transabdominal and transvaginal transducers along with Doppler. Transvaginal imaging is performed due to inadequate visualization transabdominally. FINDINGS: Uterus: The uterus is anteverted and measures 13.3 x 7.6 x 7.5 cm. The estimated cervical length is 3.7 cm. There are some small nabothian cysts. There is a linear bright reflector consistent with an IUD which appears appropriately positioned. There are highly intense linear segments of the IUD by some gaps in the bright reflectors. Based upon review of previous CT I suspect this is related to the type and brand of IUD. The double wall endometrial thickness is 7 mm. The uterine contour is smooth. There is a 1.0 cm oval area of altered echotexture which is likely within the myometrium. This appears new. No other suspicious abnormality within the myometrium The junctional zone is not well defined. Adnexa: The right ovary measures approximately 2.9 x 2.1 x 1.8 cm. The estimated right ovarian volume is 6 mL. There is some color signal in the expected region of the right ovary. No suspicious right adnexal mass or collection. Left ovary measures 2.6 x 1.1 x 1.2 cm. The estimated left ovarian finding is approximately 2 mL. No suspicious left adnexal mass or collection. No suspicious color signal in the left adnexa. Small amount of free pelvic fluid is nonspecific US/US pelvic and transvaginal IMPRESSION: There is an IUD present. There are differing degrees in intensity of the linear bright reflector. I suspect this is related to thicker segments rather than fracture. No suspicious adnexal mass or collection Oval 1.0 cm area of altered echotexture in the myometrium. Statistically this is most consistent with a fibroid Dictated By: Remi Dael MD Medications Administered Discontinued Medications Generic Name Dose Route Start Last Admin Trade Name Freq PRN Reason Stop Dose Admin Acetaminophen 975 mg 05/11/23 11:33 05/11/23 11:45 Acetaminophen 325 Mg Tablet PO 05/11/23 11:34 975 mg ONCE ONE Administration Discharge Plan Discharge Clinical Impression: Uterine fibroid, Pelvic pain Patient Disposition: Home, Self-Care Instructions: Pelvic Pain in Women (ED) Additional Instructions: You presented to the emergency department due to pelvic pain. Your labs are reassuring, your urine does not appear to be infected at this time. Your urine will be sent out for further testing, we will call you with any abnormal results. We also gathered several vaginal swabs, we will call you if any of these are abnormal. You are not . Your ultrasound shows evidence of a fibroid. Please follow-up with your OBGYN in regards to this finding. Call tomorrow to make an appointment. You may take ibuprofen or Tylenol as needed for pain. If any new or worsening symptoms occur, including but not limited to worsening abdominal pain, nausea, vomiting, fevers or chills, please return for re- evaluation. Prescriptions: New ibuprofen 600 mg tablet 600 mg PO Q6H PRN (Reason: pain) Qty: 30 0RF No Action metronidazole 500 mg tablet 500 mg PO BID 7 Days Qty: 14 0RF Rx Instructions: Take with food, Avoid alcohol and vinegar products ferrous sulfate 325 mg (65 mg iron) tablet 325 mg PO DAILY 90 Days Qty: 90 1RF lisinopril 20 mg tablet 20 mg PO DAILY 90 Days Qty: 90 1RF omeprazole 20 mg capsule,delayed release(DR/EC) 20 mg PO DAILY PRN (Reason: Heartburn) ParaGard T 380A 380 square mm intrauterine device intrauterine norethindrone (contraceptive) 0.35 mg tablet 0.35 mg PO DAILY Qty: 84 1RF albuterol sulfate 90 mcg/actuation HFA aerosol inhaler 2 puff inhalation 6XD PRN (Reason: shortness of breath or wheezing) 30 Days Qty: 1 6RF Referrals: [facility] [place] [facility] [Provider Group] Interventions: ED Discharge Assessment Last Done: 05/11/23 15:43 Discharge Date/Time: 05/11/23 15:51
[2023-05-11 11:42] VITALS: BP 160/113; PULSE 74; RESP 16; TEMP 37; O2SAT 98
[2023-05-11] MEDS: Acetaminophen 325 MG TABLET 975 MG PO (11:45)
[2023-05-11 13:53] VITALS: BP 146/87; PULSE 85; RESP 16; TEMP 36.8; O2SAT 95
[2023-05-12 01:44] LABS: CT PCR NOT DETECTED (Not Detect.); NG PCR NOT DETECTED (Not Detect.)
== END 2023-05-11 15:51 | disposition home or self-care (01) ==
PROVIDERS: Physician Assistant Medical; Emergency Provider Emergency Medicine; PCP Internal Medicine
DX: R10.2 Pelvic and perineal pain (principal); D25.9 Leiomyoma of uterus, unspecified; R10.30 Lower abdominal pain, unspecified; I10 Essential (primary) hypertension; D50.0 Iron deficiency anemia secondary to blood loss (chronic); Z72.89 Other problems related to lifestyle; Z97.5 Presence of (intrauterine) contraceptive device
CPT/HCPCS: 0353U; 36415; 76830; 76856; 80048; 80076; 81001; 81025; 83690; 85025; 87086; 87480; 87510; 87660; 99284

== ENCOUNTER 2023-05-20 11:39 | Outpatient (AMB) | payer OTHER, SELFPAY ==
[2023-05-20 11:42] VITALS: BP 132/80; BMI 34.8
--- NOTE | 2023-05-20 11:42 | MHC.OFFVIS ---
Intake Vital Signs 05/20/23 11:42 Height 5 ft 4 in Weight 203 lb BMI 34.8 BP 132/80 Intake Visit Reasons: ER follow up [employer] Required: Yes [employer] Officer Language: Baker Operator Automatic Name: Qi Hardin Information Interpreted: non-clinical & clinical Angledozer Operator: Angledozer Operator Present (Qi) Allergies No Known Allergies [No Known Allergies*] Allergy (Verified 05/20/23 11:48) Is last menstrual period known: Yes Last menstrual period: 05/06/23 Post menopausal: No HPI HPI Comments History of Present Illness Details The patient is presenting for ER follow-up. The patient went to the emergency room on 05/11 for pelvic pain and the following workup was done H&H ..3 Chemistry within normal Urine dip showed microscopic hematuria, urine culture grew 50-100 K kimmy GC/chlamydia and Trichomonas were negative Pelvic Ultrasound showed the following: There is an IUD present. There are differing degrees in intensity of the linear bright reflector. I suspect this is related to thicker segments rather than fracture. No suspicious adnexal mass or collection Oval 1.0 cm area of altered echotexture in the myometrium. Statistically this is most consistent with a fibroid The patient is doing well with no complaints, her pelvic pain has completely resolved with no additional symptoms PFSH Medical History Shortness of breath Iron deficiency anemia due to chronic blood loss Obese Left sided sciatica Hypertension Surgical History No pertinent past surgical history Family History Mother Diabetes Hypertension Father No problems noted. Social History Household Members: Spouse, Family and Children Housing: Apartment Alcohol intake: never Patient Tobacco Use Status: Never used Tobacco e-Cigarette/Vaping Use: Never Used Second Hand Smoke Exposure: No service: No Current occupational status: unemployed Cognitive needs: No Hearing needs: No Vision needs: Yes Female Reproductive History Menstrual Age of Menarche: 10 Duration of menses: >10 days Date of last menstrual period: 05/06/23 control method: copper IUCD Total pregnancies: 3 Full term: 3 Number of Living Children: 3 Review of Systems Const All systems reviewed & are unremarkable except as noted in HPI and below Physical Exam Vital Signs: BMI result Body Mass Index 34.8 General: Yes no CVA tenderness External Female Exam: normal external appearance and normal appearance of the urethra Speculum Exam - Vagina: normal appearance of the vagina, normal palpation, no lesions and no masses Speculum Exam - Cervix: normal appearance of the cervix, normal palpation, no lesions, no masses, nontender and Other cervical findings present (IUD string in place) Bimanual exam- vagina & uterus: normal bimanual exam, normal palpation, uterine size normal, normal palpation, uterine shape normal, No Cervical tenderness present and non-tender Bimanual Exam- Adnexa, other: normal adnexae Back/Spine/Pelvis Back: no CVA tenderness Assessment & Plan Assessment & Plan (1) Pelvic pain: Code(s): R10.2 - Pelvic and perineal pain Plan: UPT done in the office was negative, discussed with the patient the the workup done emergency room including a UA showing microscopic hematuria, GC/chlamydia and Trichomonas were negative, and pelvic ultrasound showing an IUD in place and myoma. Since the patient's pelvic pain has resolved, instruction given to patient to call in case the pain recurs. All questions answered, the patient verbalized understanding (2) Microscopic hematuria: Code(s): R31.29 - Other microscopic hematuria Plan: Repeat urine dip in the office showed persistent microscopic hematuria. Will order CT scan and will refer to Urology for further management (3) Myoma: Code(s): D21.9 - Benign neoplasm of connective and other soft tissue, unspecified Plan: Discussed with the patient the findings on pelvic ultrasound & the risk of myosarcoma; discussed with the patient the options of treatment including expectant management versus hysterectomy; the pros and cons, risks benefits of each approach were discussed with the patient including the fact that in cases of myosarcoma, surgical treatment can lead to early diagnosis and positively affects the prognosis; after further discussion, the patient decided to proceed with expectant management. Will repeat pelvic ultrasound periodically. Instructions given to patient to call in case any of the following occurs: pressure symptoms, abnormal uterine bleeding, pelvic pain; and to schedule a future office follow-up appointment for reassessment and to order a repeat ultrasound . All questions answered, the patient verbalized understanding and agreed with the plan . Orders: Orders CT abdomen pelvis wo/w IV con Today R31.29 - Other microscopic hematuria Referrals Urology Referral R31.29 - Other microscopic hematuria Coding Level of Care Code New Pt Level 3 (92421) Diagnoses Pelvic pain R10.2 Microscopic hematuria R31.29 Myoma D21.9
== END 2023-05-20 12:18 | disposition home or self-care (01) ==
LOC: HO.HWS 11:40
PROVIDERS: PCP Internal Medicine; Visit Provider Obstetrics & Gynecology
DX: R10.2 Pelvic and perineal pain (principal); R31.29 Other microscopic hematuria; D21.9 Benign neoplasm of connective and other soft tissue, unspecified
CPT/HCPCS: 99203

== ENCOUNTER → 2023-05-20 11:39 | Outpatient (BNVA) | payer OTHER, SELFPAY | PROVIDERS: PCP Internal Medicine; Visit Provider Obstetrics & Gynecology ==

== ENCOUNTER 2023-08-27 15:25 | Outpatient (AMB) | payer OTHER, SELFPAY ==
--- NOTE | 2023-08-27 15:31 | A.OFFVIS_ITS ---
Intake Vital Signs 08/27/23 15:35 Height 5 ft 4 in Weight 208 lb BMI 35.7 BP 126/84 Intake Visit Reasons: [employer] annual exam Consulting Services Project Manager Required: Yes Consulting Services Project Manager Language: Waste Treatment Operator Name: Qi LAFLEUR Information Interpreted: non-clinical & clinical Engineer Chief: Engineer Chief Present (Qi LAFLEUR) Accompanied by: Self / Same As Patient Allergies No Known Allergies [No Known Allergies*] Allergy (Verified 08/27/23 15:37) Is last menstrual period known: Yes Last menstrual period: 08/06/23 HPI HPI Comments History of Present Illness Details Presenting for annual exam. Complaining of vaginal discharge associated foul odor, no itching, and skin itching rash underneath bilateral breast Last Pap/HPV was negative in 02/26 Last Mammogram Last Colon[facility] Medical History Shortness of breath Iron deficiency anemia due to chronic blood loss Obese Left sided sciatica Hypertension Surgical History No pertinent past surgical history Family History Mother Diabetes Hypertension Father No problems noted. Social History Household Members: Spouse, Family and Children Housing: Apartment Alcohol intake: never Patient Tobacco Use Status: Never used Tobacco e-Cigarette/Vaping Use: Never Used Second Hand Smoke Exposure: No service: No Current occupational status: unemployed Cognitive needs: No Hearing needs: No Vision needs: Yes Female Reproductive History Menstrual Age of Menarche: 10 Date of last menstrual period: 08/06/23 control method: copper IUCD Total pregnancies: 3 Full term: 3 Number of Living Children: 3 Date of last pap smear: 03/07/22 Review of Systems Const All systems reviewed & are unremarkable except as noted in HPI and below Card Reports as per HPI Resp Reports as per HPI GI Reports as per HPI and Reports no additional complaints Reports as per HPI Physical Exam Vital Signs: BMI result Body Mass Index 35.7 Const General: cooperative, healthy appearing and comfortable Chest Other: Underneath bilateral breast red rash, skin candidiasis Chest palpation & inspection: normal inspection of the chest and normal palpation of entire chest wall Breast/axilla inspection: normal inspection of the breasts and normal inspection of the axillae Breast/axilla palpation: normal palpation of the breasts, normal palpation of the axillae and no axillary lymphadenopathy Resp Effort & Inspection: normal respiratory effort Auscultation: clear to auscultation bilaterally Percussion: percussion normal Cardio Palpation: normal PMI Rate: regular rate Rhythm: regular rhythm Heart sounds: no murmurs and no rubs Peripheral pulses: Peripheral pulses 2+ throughout GI Inspection: Yes normal to inspection Palpation (GI): Soft to palpation, nontender, no guarding, not rigid and No hepatosplenomegaly present Percussion: Yes normal to percussion Auscultation: normal bowel sounds Rectal Exam - Female: deferred General: Yes bladder normal to palpation External Female Exam: No lesion Speculum Exam - Vagina: normal appearance of the vagina, normal palpation, normal vaginal discharge and not erythematous Speculum Exam - Cervix: normal appearance of the cervix, normal palpation and Other cervical findings present (IUD thread in place) Bimanual exam- vagina & uterus: normal bimanual exam, normal palpation, uterine size normal, bladder normal to palpation, consistency normal and normal palpation Bimanual Exam- Adnexa, other: normal adnexae, no masses and no tenderness Assessment & Plan Assessment & Plan (1) Well woman exam: Code(s): Z01.419 - Encounter for gynecological examination (general) (routine) without abnormal findings Plan: Cotesting not indicated this year. Mammogram ordered. Will refer the patient to GI for screening colonoscopy Counseled the patient about the recommended dietary allowance of 1000 mg of Calcium & 600 IU of vitamin D. The patient was instructed to perform monthly self-breast exams and to schedule an annual exam in a year; All questions answered and the patient verbalized understanding. Instructed the patient to schedule annual exam in a year (2) Vaginal discharge: Code(s): N89.8 - Other specified noninflammatory disorders of vagina Plan: GC and chlamydia cultures with BV panel taken. Per CDC recommendation, will screen for STI, HepBs Ag, HIV, RPR, Hep C Ab ordered. Will treat with Flagyl 500 mg p.o. b.i.d. x 7 days, Instructions given to the patient to refrain from sexual activity or to use condoms consistently and correctly during the BV treatment regimen, not to douch, it might increase the risk for relapse, and to call if symptoms persist or recur. (3) Skin candidiasis: Comment: Underneath Bilateral breast Code(s): B37.2 - Candidiasis of skin and nail Plan: The patient was instructed to keep the area dry, use hair blower after showering, use baby powder without Talc and Desitin cream in addition to applying lotrisone cream BID x5 days Orders: Orders Hepatitis B Surface Antigen Today B96.89 - Other specified bacterial agents as the cause of diseases classified elsewhere, N76.0 - Acute vaginitis MM tomosynthesis screening BI Today Z12.31 - Encounter for screening mammogram for malignant neoplasm of breast Hepatitis C Antibody Today B96.89 - Other specified bacterial agents as the cause of diseases classified elsewhere, N76.0 - Acute vaginitis HIV Ab/Ag Today B96.89 - Other specified bacterial agents as the cause of diseases classified elsewhere, N76.0 - Acute vaginitis Syphilis Screen Today B96.89 - Other specified bacterial agents as the cause of diseases classified elsewhere, N76.0 - Acute vaginitis Referrals Gastroenterology Referral Z12.11 - Encounter for screening for malignant neoplasm of colon Medications: New metronidazole 500 mg PO BID 7 days 14 tabs 0RF clotrimazole-betamethasone 1-0.05 % 1 appl topical BID 45 grams 0RF 5 days Coding Level of Care Code Est Pt Prev Care 40-64y(73824) Diagnoses Well woman exam Z01.419 Vaginal discharge N89.8 Skin candidiasis B37.2
[2023-08-27 15:35] VITALS: BP 126/84; BMI 35.7
== END 2023-08-27 15:51 | disposition home or self-care (01) ==
LOC: HO.HWS 15:25
PROVIDERS: PCP Internal Medicine; Visit Provider Obstetrics & Gynecology
DX: Z01.419 Encounter for gynecological examination (general) (routine) without abnormal findings (principal); N89.8 Other specified noninflammatory disorders of vagina; B37.2 Candidiasis of skin and nail
CPT/HCPCS: 99396

== ENCOUNTER 2023-08-27 15:25 | Outpatient (REF) | payer OTHER, SELFPAY ==
[2023-08-28 03:11] LABS: CT PCR NOT DETECTED (Not Detect.); NG PCR NOT DETECTED (Not Detect.)
[2023-08-28 15:41] LABS: BV Int Neg Control Negative (Negative); BV Int Pos Control Positive (Positive)
== END 2023-08-27 15:26 | disposition home or self-care (01) ==
LOC: HO.LNP 15:25
PROVIDERS: PCP Internal Medicine; Visit Provider Obstetrics & Gynecology
DX: N89.8 Other specified noninflammatory disorders of vagina (principal)
CPT/HCPCS: 0353U; 87480; 87510; 87660

== ENCOUNTER 2023-08-27 16:03 | Outpatient (REF) | payer OTHER, SELFPAY ==
[2023-08-28 07:58] LABS: Syphilis Screen Nonreactive (Nonreactive)
[2023-08-28 08:07] LABS: HBsAGNum1 0.39 S/CO (0.00-0.99); HIV AB/AG Nonreactive (Nonreactive); HIV Num 1 0.05 S/CO (0.00-0.99); Hepatitis B Surface Antigen Negative (Negative); ~HepC Num1 0.13 S/CO (0.00-0.79); ~Hepatitis C Antibody Nonreactive (Nonreactive)
== END 2023-08-27 16:04 | disposition home or self-care (01) ==
LOC: HO.LAB 16:03
PROVIDERS: PCP Internal Medicine; Visit Provider Obstetrics & Gynecology
DX: Z11.4 Encounter for screening for human immunodeficiency virus [HIV] (principal); N76.0 Acute vaginitis; B96.89 Other specified bacterial agents as the cause of diseases classified elsewhere
CPT/HCPCS: 36415; 86780; 86803; 87340; 87389

== ENCOUNTER → 2023-08-29 10:30 | Outpatient (BNV) | payer OTHER, SELFPAY | PROVIDERS: PCP Internal Medicine; Visit Provider Radiology Diagnostic Radiology | DX: Z12.31 Encounter for screening mammogram for malignant neoplasm of breast (principal) | CPT/HCPCS: 77063; 77067 ==

== ENCOUNTER 2023-08-29 10:32 | Outpatient (REF) | payer OTHER, SELFPAY ==
--- NOTE | ~2023-08-29 | MM_ITS ---
EXAMINATION: MM SCREENING DIGITAL BREAST TOMOSYNTHESIS, BILATERAL CLINICAL INFORMATION: Screening. Asymptomatic. COMPARISON: Mammography: 01/15/2018, and 12/24/2016. No more remote exams available. TECHNIQUE: Digital breast tomosynthesis is performed in both the craniocaudal and mediolateral oblique views along with computer-aided detection (CAD). Synthesized 2D images are generated from the tomosynthesis. FINDINGS: The breasts are heterogeneously dense, which may obscure small masses (ACR BI-RADS breast composition Category c). There are no suspicious masses, suspicious grouped calcifications, or areas of architectural distortion in either breast. The parenchymal pattern, including parenchymal asymmetries in both breasts, are stable from prior exams. MM/MM tomosynthesis screening BI IMPRESSION: No mammographic evidence of malignancy. ASSESSMENT: BI-RADS BI-RADS 2 - Benign Findings RECOMMENDATION: Routine annual mammography screening. 1 year F/U This examination should not preclude the clinical evaluation of a suspicious palpable abnormality. This patient's information was entered into a reminder system with a target due date for their next mammogram.
== END 2023-08-29 10:33 | disposition home or self-care (01) ==
LOC: HO.MAMMO 10:32
PROVIDERS: PCP Internal Medicine; Visit Provider Obstetrics & Gynecology
DX: Z12.31 Encounter for screening mammogram for malignant neoplasm of breast (principal)
CPT/HCPCS: 77063; 77067

== ENCOUNTER 2023-10-08 15:58 | Outpatient (REF) | payer OTHER, SELFPAY ==
--- NOTE | ~2023-10-08 | CT_ITS ---
EXAMINATION: CT ABDOMEN AND PELVIS WITHOUT AND WITH CONTRAST CLINICAL INFORMATION: Microscopic hematuria. COMPARISON: None available. TECHNIQUE: Multidetector volumetric imaging was performed of the abdomen and pelvis before and after the IV administration of 85 mL of Omnipaque 350 intravenous contrast. Sagittal and coronal reformatted images were obtained on the technologist's workstation. This CT examination was performed using dose optimization techniques as appropriate, variously including the following: *Automated exposure control *Adjustment of mA and/or kV according to patient size (this includes techniques or standardized protocols for targeted exams where dose is matched to indication/reason for exam; i.e. extremities or head) *Use of iterative reconstruction technique DLP: 1006 mGy-cm FINDINGS: LUNG BASES: 3 mm triangular subpleural nodule with pleural tail in the right lower lobe consistent with a lymph node and no follow-up imaging is recommended. LIVER, GALLBLADDER, AND BILIARY TREE: The liver is normal in size, shape, and attenuation. No focal hepatic lesion or biliary ductal dilatation is present. The gallbladder is unremarkable with no evidence of radiopaque gallstones, gallbladder wall thickening, or obvious pericholecystic inflammatory changes. PANCREAS: No discrete pancreatic mass or pancreatic ductal dilatation. SPLEEN: Unremarkable ADRENAL GLANDS: Unremarkable KIDNEYS AND URETERS: 1 cm nonenhancing simple cysts in the upper pole left kidney. No follow-up imaging is recommended. No nephrolithiasis. The nephrograms are symmetric. The urinary excretion of contrast is symmetric. No visible ureteral lesion. No ureteral calculus. BLADDER: No bladder calculus. No discrete bladder mass. GASTROINTESTINAL TRACT: The small and large bowel are unremarkable. The appendix is unremarkable. ABDOMINAL WALL: No significant hernia is appreciated. LYMPH NODES: No lymphadenopathy. VASCULAR: No aortic aneurysm. Mild aortoiliac atherosclerosis. PELVIC VISCERA: IUD in the uterus. OSSEOUS STRUCTURES: No suspicious osseous lesions. CT/CT abdomen pelvis wo/w IV con IMPRESSION: Unremarkable CT urogram. No explanation for hematuria. Fleischner guidelines were followed.
[2023-10-08] MEDS: iohexoL 350 MG/ML 100 ML INFUS..BTL 85 ML IV (16:20)
== END 2023-10-08 15:59 | disposition home or self-care (01) ==
LOC: HO.CT 15:58
PROVIDERS: PCP Internal Medicine; Visit Provider Obstetrics & Gynecology
DX: R31.29 Other microscopic hematuria (principal)
CPT/HCPCS: 74178; Q9967

== ENCOUNTER 2023-11-04 13:32 | Outpatient (AMB) | payer OTHER, SELFPAY ==
[2023-11-04 13:43] VITALS: BP 150/96; BMI 35.2
--- NOTE | 2023-11-04 13:43 | MHC.PC.OV ---
Vital Signs 11/04/23 13:43 11/04/23 14:20 Height 5 ft 4 in Weight 205 lb BMI 35.2 BP 150/96 H 150/90 H Blood Pressure Location Lt brachial Lt brachial Position Sitting Sitting Intake Visit Reasons: BP f/u Intake Note: Patient here for a follow up BP Sustainable Landscape Architect Required: No Accompanied by: Self / Same As Patient Allergies No Known Allergies [No Known Allergies*] Allergy (Verified 11/04/23 14:20) Medication List - Last Reconciled 11/04/23 by Zhanna Dee MD albuterol sulfate 90 mcg/actuation 2 puffs inhalation 6XD PRN 30 days copper (ParaGard T 380A) intrauterine lisinopril 20 mg PO DAILY 90 days Tobacco use date assessed: 11/04/23 Dental Screening Dental Screen Date: 11/04/23 Did you have a dental visit in the last 12 months?: No Did you have a dental problem in the last 6 months where you did not have access to dental care?: No Was dental information given to patient?: Patient has dentist HPI HPI Comments History of Present Illness Details This is a 47-year-old female with hypertension, chronic GERD, asthma and allergic rhinitis that comes today for follow-up on her conditions. Blood pressure elevated and she did took her lisinopril. I will increase lisinopril from 20 mg to 40 mg. Blood pressure will be recheck in 3 weeks by nurse navigator. Is having a lot of heartburn and I will restart her on omeprazole as needed. She use rescue inhaler once a month. She is complaining of allergic rhinitis and I will start her on antihistamines as needed. No chest pain or shortness on breath. [facility], [facility] Medical History (Updated 11/04/23 @ 14:25 by Zhanna Dee MD) Shortness of breath Iron deficiency anemia due to chronic blood loss Obese Left sided sciatica Hypertension Surgical History No pertinent past surgical history Family History Mother Diabetes Hypertension Father No problems noted. Social History Household Members: Spouse, Family and Children Housing: Apartment Alcohol intake: never Patient Tobacco Use Status: Never used Tobacco e-Cigarette/Vaping Use: Never Used Second Hand Smoke Exposure: No service: No Current occupational status: unemployed Cognitive needs: No Hearing needs: No Vision needs: Yes Female Reproductive History Menstrual Age of Menarche: 10 Questionnaire PHQ-9 Over the last 2 weeks, how often have you been bothered by any of the following problems? 1. Little interest or pleasure in doing things: not at all 2. Feeling down, depressed, or hopeless: not at all 3. Trouble falling or staying asleep, or sleeping too much: not at all 4. Feeling tired or having little energy: not at all 5. Poor appetite or overeating: not at all 6. Feeling bad about yourself - or that you are a failure or have let yourself or your family down: not at all 7. Trouble concentrating on things, such as reading the newspaper or watching television: not at all 8. Moving or speaking so slowly that other people could have noticed. Or the opposite - being so fidgety or restless that you have been moving around a lot more than usual: not at all 9. Thoughts that you would be better off or of hurting yourself in some way: not at all Total score: 0 Depression Screening Interpretation: Negative Depression Screening Done: Yes 38991 - PHQ-9 Billing: Yes Source: Developed by Drs. Zachariah Du, Jaylin Saucedo, Garrison Field and colleagues, with an educational jessika from [employer]. Thrive Questionnaire Date Thrive assessed: 11/04/23 I am a: Patient What is your living situation today?: I have a steady place to live Within the past 12 months, did the food you bought not last and you didn't have the money to get more?: Never true Within the past 12 months, did you worry whether your food would run out before you got money to buy more?: Never true Do you have trouble paying for medicines?: No Do you have trouble getting transportation to medical appointments?: No Do you have trouble paying your heating and electricity bill?: No Do you have trouble taking care of your child, family member or friend?: No Do you have trouble with day-to-day activities such as bathing, preparing meals, shopping, managing finances, etc.?: No Are you currently unemployed and looking for a job?: No Are you interested in more education?: No Please select the resources that you would like help with: None Currently or been in a relationship where the following occur: no concerns reported THRIVE Score: 0 AUDIT C Alcohol Use Questionnaire (AUDIT-C) 1. How often do you have a drink containing alcohol?: Never Total Score: 0 Score Reviewed/Action Taken: No ROWAN-7 AMB Questionnaire ROWAN-7 Date ROWAN - 7 assessed: 11/04/23 Feeling nervous, anxious, or on edge: 0 = Not at all Not being able to stop or control worryin = Not at all Worrying too much about different things: 0 = Not at all Trouble relaxin = Not at all Being so restless that it is hard to sit still: 0 = Not at all Becoming easily annoyed or irritable: 0 = Not at all Feeling afraid as if something awful might happen: 0 = Not at all Total ROWAN-7 score (0-4 normal; 5-9 mild; 10-14 moderate; 15-21 severe): 0 Source: Developed by Drs. Zachariah Du, Jaylin Saucedo, Garrison Field and colleagues, with an educational jessika from [employer]. ROWAN-7 Assessment Billing ROWAN-7 Assessment Tool: ROWAN-7 Assessment 06632 Review of Systems Const All systems reviewed & are unremarkable except as noted in HPI and below Card Denies chest pain at rest, Denies chest pain with activity, Denies edema, Denies irregular heart rhythm, Denies claudication, Denies dyspnea, Denies dyspnea on exertion, Denies orthopnea, Denies paroxysmal nocturnal dyspnea and Denies slow heart rate Resp Denies cough, Denies dyspnea and Denies dyspnea on exertion Physical exam (Primary Care) Vital Signs: Last Vital Signs BP 150/96 H 11/04/23 13:43 BMI result Body Mass Index 35.2 Tobacco/Smoking Status: Tobacco use Status Tobacco use date assessed 11/04/23 11/04/23 13:48 Patient Tobacco Use Status Never used Tobacco 11/04/23 13:48 e-Cigarette/Vaping Use Never Used 11/04/23 13:48 PHQ-9: PHQ-9 Score PHQ-9: Total score 0 11/04/23 13:57 Depression Screening Interpretation: Negative Thrive Assessment: Date of Thrive Assessment Date Thrive assessed 11/04/23 11/04/23 13:48 Currently or been in a relationship where the following occur: no concerns reported Resp Effort & Inspection: normal respiratory effort Auscultation: clear to auscultation bilaterally Cardio Jugular venous distension: no JVD Rate: regular rate Rhythm: regular rhythm Heart sounds: S1 normal heart sound present and S2 normal heart sound present Extrem General: Yes full ROM Assessment and Plan Assessment & Plan (1) Hypertension: Code(s): I10 - Essential (primary) hypertension Qualifiers: Hypertension type: essential hypertension Qualified Code(s): I10 - Essential (primary) hypertension Plan: Increase lisinopril from 20 mg to 40 mg. Blood pressure goal is equal or less than 130/80. Recheck blood pressure with nurse navigator in 3 weeks. (2) Chronic GERD: Code(s): K21.9 - Gastro-esophageal reflux disease without esophagitis Plan: Restart PPIs. (3) Asthma: Code(s): J45.909 - Unspecified asthma, uncomplicated Qualifiers: Asthma severity: mild Asthma persistence: persistent Asthma complication type: uncomplicated Qualified Code(s): J45.30 - Mild persistent asthma, uncomplicated Plan: Use rescue inhaler as needed. (4) Allergic rhinitis: Code(s): J30.9 - Allergic rhinitis, unspecified Qualifiers: Allergic rhinitis trigger: pollen Allergic rhinitis seasonality: seasonal Qualified Code(s): J30.1 - Allergic rhinitis due to pollen Plan: Start antihistamines as needed. Medications: New omeprazole 20 mg PO DAILY PRN 90 caps 0RF heartburn 90 days cetirizine (All Day Allergy (cetirizine)) 10 mg PO DAILY PRN 90 tabs 0RF allergy symptoms 90 days lisinopril 40 mg PO DAILY 90 tabs 0RF 90 days Discontinued lisinopril Discontinued Reason: Patient Completed Course 20 mg PO DAILY 90 tabs 1RF 90 days I10 - Essential (primary) hypertension Coding Level of Care Code Est Pt Level 4 (58362) Diagnoses Essential hypertension I10 Hypertension type: essential hypertension Chronic GERD K21.9 Mild persistent asthma without complication J45.30 Asthma severity: mild Asthma persistence: persistent Asthma complication type: uncomplicated Seasonal allergic rhinitis due to pollen J30.1 Allergic rhinitis trigger: pollen Allergic rhinitis seasonality: seasonal Additional Codes ROWAN-7 Assessment Billing - ROWAN-7 Assessment Tool: ROWAN-7 Assessment 01012 ([id number]) Time Spent (min) 23
[2023-11-04 14:20] VITALS: BP 150/90
== END 2023-11-04 14:04 | disposition home or self-care (01) ==
PROVIDERS: PCP Internal Medicine; Visit Provider Internal Medicine
DX: I10 Essential (primary) hypertension (principal); K21.9 Gastro-esophageal reflux disease without esophagitis; J45.30 Mild persistent asthma, uncomplicated; J30.1 Allergic rhinitis due to pollen
CPT/HCPCS: 99214

== ENCOUNTER 2023-12-16 10:29 | Outpatient (AMB) | payer OTHER, SELFPAY ==
[2023-12-16 10:31] VITALS: BP 132/82; PULSE 83; TEMP 36.6; O2SAT 97; BMI 35.2
--- NOTE | 2023-12-16 10:31 | MHC.OFFWIV ---
Intake Vital Signs 12/16/23 10:31 Height 5 ft 4 in Weight 205 lb 4 oz BMI 35.2 BP 132/82 Blood Pressure Location Rt brachial Position Sitting Pulse 83 Pulse Source Pulse Oximeter Temp 97.8 F Temp Source Oral Pulse Oximetry (%) 97 Intake Visit Reasons: EP pain in rt shoulder Intake Note: pt is here for pain in right shoulder Patient Tobacco Use Status: Never used Tobacco Allergies No Known Allergies [No Known Allergies*] Allergy (Verified 12/16/23 10:31) Do you need a note to return to daycare/school/sports/work: No HPI HPI Comments History of Present Illness Details 48-year-old female presents today complaining of right shoulder and trapezius pain times last 3 days. Denies any particular injury or trauma to the area but does relate she does have a cleaning while at home every day denies radiating pain into the upper extremity denies numbness tingling paresthesias or weakness in her right hand interview was conducted with certified court/medical interpreter COUNTS INCLUDE 234 BEDS AT THE [facility] Medical History (Updated 12/16/23 @ 10:52 by KATLIN Cortes) Shortness of breath Encounter for physical examination Well woman exam with routine gynecological exam Cervical cancer screening Counseling for control, intrauterine device BCP ( control pills) initiation Dyspnea on exertion Well woman exam Skin candidiasis Iron deficiency anemia due to chronic blood loss Obese Left sided sciatica Hypertension Surgical History No pertinent past surgical history Family History Mother Diabetes Hypertension Father No problems noted. Social History Household Members: Spouse, Family and Children Housing: Apartment Alcohol intake: never Patient Tobacco Use Status: Never used Tobacco e-Cigarette/Vaping Use: Never Used Second Hand Smoke Exposure: No service: No Current occupational status: unemployed Cognitive needs: No Hearing needs: No Vision needs: Yes Female Reproductive History Menstrual Age of Menarche: 10 Review of Systems Const All systems reviewed & are unremarkable except as noted in HPI and below Eyes Reports no additional complaints ENT Reports no additional complaints Card Reports no additional complaints Resp Reports no additional complaints GI Reports no additional complaints Musc Details: Pain in the right trapezius radiating to the shoulder Physical Exam Vital Signs: Last Vital Signs Temp 97.8 F 12/16/23 10:31 Pulse 83 12/16/23 10:31 BP 132/82 12/16/23 10:31 Pulse Ox 97 12/16/23 10:31 BMI result Body Mass Index 35.2 Const General: healthy appearing and no acute distress HEENT Head: Yes normal to inspection, Yes normocephalic and Yes atraumatic Ears: hearing grossly normal bilaterally General nose exam: Normal external nose present Face and sinus: Yes normal facial exam Resp Effort & Inspection: normal respiratory effort Auscultation: clear to auscultation bilaterally Cardio Palpation: normal PMI Rate: regular rate Rhythm: regular rhythm and abnormal rhythm Back/Spine/Pelvis Cervical Spine: normal cervical lordosis, cervical ROM normal, cervical muscular tenderness (Right trapezius) and pain with cervical ROM (Right trapezius) Neuro General: Normal light touch and pain sensation Motor exam (neuro): 5/5 motor strength present throughout Assessment & Plan Assessment & Plan (1) Strain of right trapezius muscle: Code(s): S46.811A - Strain of other muscles, fascia and tendons at shoulder and upper arm level, right arm, initial encounter Plan: muscle relaxer was ordered and it was recommended the patient use an ice pack to the area. If pain or swelling increases return to urgent care or follow up with PCP Plan See plan Medications: New cyclobenzaprine 5 mg PO Q12H 10 tabs 0RF Coding Level of Care Code Est Pt Level 3 (80489) Diagnoses Strain of right trapezius muscle S46.811A
== END 2023-12-16 10:51 | disposition home or self-care (01) ==
PROVIDERS: PCP Internal Medicine; Visit Provider Physician Assistant Medical
DX: S46.811A Strain of other muscles, fascia and tendons at shoulder and upper arm level, right arm, initial encounter (principal)
CPT/HCPCS: 99213

== ENCOUNTER 2024-03-04 09:41 | Outpatient (AMB) | payer OTHER, SELFPAY ==
[2024-03-04 09:54] VITALS: BP 152/94; PULSE 73; O2SAT 98; BMI 35.2
--- NOTE | 2024-03-04 09:54 | MHC.PC.OV ---
Vital Signs 03/04/24 09:54 Height 5 ft 4 in Weight 205 lb BMI 35.2 BP 152/94 H Blood Pressure Location Lt brachial Position Sitting Pulse 73 Pulse Source Pulse Oximeter Pulse Oximetry (%) 98 Oxygen Delivery Method Room Air Intake Visit Reasons: lump on neck Paper Guillotine Operator Required: Yes Paper Guillotine Operator Name: [id number] Accompanied by: Self / Same As Patient Allergies No Known Allergies [No Known Allergies*] Allergy (Verified 03/04/24 09:56) Tobacco use date assessed: 11/04/23 Dental Screening Dental Screen Date: 11/04/23 HPI lump on neck HPI Details 48-year-old female presents to the office for a sick visit. Her regular provider is not available and I am filling in. Patient speaks Tongan only and an hourly sign language interpreter via the iPad was used. Patient reports of palpated a lump on the right side of the neck in the past few weeks. Denies any pain or tenderness. No weight loss. Associated itching in the scalp area. [facility] Medical History (Updated 12/16/23 @ 10:52 by KATLIN Cortes) Shortness of breath Encounter for physical examination Well woman exam with routine gynecological exam Cervical cancer screening Counseling for control, intrauterine device BCP ( control pills) initiation Dyspnea on exertion Well woman exam Skin candidiasis Iron deficiency anemia due to chronic blood loss Obese Left sided sciatica Hypertension Surgical History No pertinent past surgical history Family History Mother Diabetes Hypertension Father No problems noted. Social History Household Members: Spouse, Family and Children Housing: Apartment Alcohol intake: never Patient Tobacco Use Status: Never used Tobacco Tobacco use type: Cigarette e-Cigarette/Vaping Use: Never Used Second Hand Smoke Exposure: No service: No Current occupational status: unemployed Cognitive needs: No Hearing needs: No Vision needs: Yes Female Reproductive History Menstrual Age of Menarche: 10 Questionnaire PHQ-9 Over the last 2 weeks, how often have you been bothered by any of the following problems? 1. Little interest or pleasure in doing things: not at all 2. Feeling down, depressed, or hopeless: not at all 3. Trouble falling or staying asleep, or sleeping too much: not at all 4. Feeling tired or having little energy: not at all 5. Poor appetite or overeating: not at all 6. Feeling bad about yourself - or that you are a failure or have let yourself or your family down: not at all 7. Trouble concentrating on things, such as reading the newspaper or watching television: not at all 8. Moving or speaking so slowly that other people could have noticed. Or the opposite - being so fidgety or restless that you have been moving around a lot more than usual: not at all 9. Thoughts that you would be better off or of hurting yourself in some way: not at all Total score: 0 Depression Screening Interpretation: Negative Depression Screening Done: Yes 08580 - PHQ-9 Billing: Yes Source: Developed by Drs. Zachariah Du, Jaylin Saucedo, Garrison Field and colleagues, with an educational jessika from [employer]. Thrive Questionnaire Date Thrive assessed: 11/04/23 Are you currently unemployed and looking for a job?: Yes AUDIT C Alcohol Use Questionnaire (AUDIT-C) 1. How often do you have a drink containing alcohol?: Never Total Score: 0 Score Reviewed/Action Taken: No ROWAN-7 AMB Questionnaire ROWAN-7 Date ROWAN - 7 assessed: 11/04/23 Source: Developed by Drs. Zachariah Du, Jaylin Saucedo, Garrison Field and colleagues, with an educational jessika from [employer]. Physical exam (Primary Care) Vital Signs: Last Vital Signs Pulse 73 03/04/24 09:54 BP 152/94 H 03/04/24 09:54 Pulse Ox 98 03/04/24 09:54 Oxygen Delivery Method Room Air 03/04/24 09:54 BMI result Body Mass Index 35.2 Tobacco/Smoking Status: Tobacco use Status Tobacco use date assessed 11/04/23 03/04/24 09:59 Patient Tobacco Use Status Never used Tobacco 03/04/24 09:59 Tobacco use type Cigarette 03/04/24 09:59 e-Cigarette/Vaping Use Never Used 03/04/24 09:59 PHQ-9: PHQ-9 Score PHQ-9: Total score 0 03/04/24 09:59 Depression Screening Interpretation: Negative Thrive Assessment: Date of Thrive Assessment Date Thrive assessed 11/04/23 03/04/24 09:59 Const General: cooperative and healthy appearing Nutritional Appearance: well nourished Orientation/consciousness: patient oriented x3 Limitations: no limitations HENMT Head: Yes normal to inspection Eyes General: appearance normal, both eyes and all related structures Neck Other: Right side: non specific swelling along the right SCM. Edges are not clearly palpable. Unable to determine if there is a lump or just the regular contour of the muscle Neck: Yes normal visual inspection Chest Chest palpation & inspection: normal palpation of entire chest wall Resp Effort & Inspection: normal respiratory effort Neuro General: patient oriented x3 Assessment and Plan Assessment & Plan (1) Lump in neck: Code(s): R22.1 - Localized swelling, mass and lump, neck Plan: US of the neck scheduled. Itching in the scalp unrelated to the lump. Coding Level of Care Code Est Pt Level 4 (75883) Complex EM visit Add On G2211 Diagnoses Lump in neck R22.1
== END 2024-03-04 10:22 | disposition home or self-care (01) ==
PROVIDERS: PCP Internal Medicine; Visit Provider Internal Medicine
DX: R22.1 Localized swelling, mass and lump, neck (principal)

== ENCOUNTER → 2024-03-04 09:41 | Outpatient (BNVA) | payer OTHER, SELFPAY | PROVIDERS: PCP Internal Medicine; Visit Provider Internal Medicine | DX: R22.1 Localized swelling, mass and lump, neck (principal) | CPT/HCPCS: 96127 ==

== ENCOUNTER 2024-03-10 13:56 | Outpatient (REF) | payer OTHER, SELFPAY ==
--- NOTE | ~2024-03-10 | US_ITS ---
EXAMINATION: US SOFT TISSUE OF THE NECK CLINICAL INFORMATION: Localized swelling, mass and lump, neck. Swelling in the neck on the right side along the edges of the SCM. COMPARISON: None available. TECHNIQUE: Linear transducer grayscale and color Doppler examination of the right sternocleidomastoid area. FINDINGS: No solid or cystic lesion in the interrogated area. US/US soft tiss head and/or neck IMPRESSION: Negative exam. Electronically signed by: Sanchez Chadwick MD 04/07/2024 12:51 PM EDT
== END 2024-03-10 13:57 | disposition home or self-care (01) ==
LOC: HO.US 13:56
PROVIDERS: PCP Internal Medicine; Visit Provider Internal Medicine
DX: R22.1 Localized swelling, mass and lump, neck (principal)
CPT/HCPCS: 76536

== ENCOUNTER → 2024-03-10 14:05 | Outpatient (BNV) | payer OTHER, SELFPAY | PROVIDERS: PCP Internal Medicine; Visit Provider Radiology Diagnostic Radiology | DX: R22.1 Localized swelling, mass and lump, neck (principal) | CPT/HCPCS: 76536 ==

== ENCOUNTER 2024-04-06 13:29 | Outpatient (AMB) | payer OTHER, SELFPAY ==
--- NOTE | 2024-04-06 13:30 | A.OFFPC_ITS ---
Vital Signs 04/06/24 13:32 Height 5 ft 4 in Weight 206 lb BMI 35.4 BP 140/82 H Blood Pressure Location Lt brachial Position Sitting Intake Visit Reasons: Annual Exam Intake Note: Patient here for an Annual Physical Exam Hand Flesher Required: No Accompanied by: Self / Same As Patient Allergies No Known Allergies [No Known Allergies*] Allergy (Verified 04/06/24 13:53) Medication List - Last Reconciled 04/06/24 by Zhanna Dee MD albuterol sulfate 90 mcg/actuation 2 puffs inhalation 6XD PRN 30 days cetirizine (All Day Allergy (cetirizine)) 10 mg PO DAILY PRN 90 days copper (ParaGard T 380A) intrauterine lisinopril 40 mg PO DAILY 90 days omeprazole 20 mg PO DAILY PRN 90 days Tobacco use date assessed: 11/04/23 Dental Screening Dental Screen Date: 04/06/24 Did you have a dental visit in the last 12 months?: Yes Did you have a dental problem in the last 6 months where you did not have access to dental care?: No Was dental information given to patient?: Patient has dentist HPI HPI Comments History of Present Illness Details This is a 48-year-old female that comes for her physical exam. Mammogram done less than a year ago was normal. Pap smear done 2021 was normal. Has not had a colonoscopy and will be refer through open access. No chest pain or shortness on breath. [facility] Medical History (Updated 04/06/24 @ 14:37 by Zhanna Dee MD) Encounter for physical examination Shortness of breath Well woman exam with routine gynecological exam Cervical cancer screening Counseling for control, intrauterine device BCP ( control pills) initiation Dyspnea on exertion Well woman exam Skin candidiasis Iron deficiency anemia due to chronic blood loss Obese Left sided sciatica Hypertension Surgical History No pertinent past surgical history Family History (Updated 04/06/24 @ 13:58 by Zhanna Dee MD) Mother Diabetes Hypertension Father No problems noted. Brother Colon cancer Social History Household Members: Spouse, Family and Children Housing: Apartment Alcohol intake: never Patient Tobacco Use Status: Never used Tobacco Tobacco use type: Cigarette e-Cigarette/Vaping Use: Never Used Second Hand Smoke Exposure: No service: No Current occupational status: unemployed Cognitive needs: No Hearing needs: No Vision needs: Yes Female Reproductive History Menstrual Age of Menarche: 10 Questionnaire PHQ-9 Over the last 2 weeks, how often have you been bothered by any of the following problems? 1. Little interest or pleasure in doing things: not at all 2. Feeling down, depressed, or hopeless: not at all 3. Trouble falling or staying asleep, or sleeping too much: not at all 4. Feeling tired or having little energy: not at all 5. Poor appetite or overeating: not at all 6. Feeling bad about yourself - or that you are a failure or have let yourself or your family down: not at all 7. Trouble concentrating on things, such as reading the newspaper or watching television: not at all 8. Moving or speaking so slowly that other people could have noticed. Or the opposite - being so fidgety or restless that you have been moving around a lot more than usual: not at all 9. Thoughts that you would be better off or of hurting yourself in some way: not at all Total score: 0 Depression Screening Interpretation: Negative Depression Screening Done: Yes 83652 - PHQ-9 Billing: Yes Source: Developed by Drs. Zachariah Du, Jaylin Saucedo, Garrison Field and colleagues, with an educational jessika from [employer]. Thrive Questionnaire Date Thrive assessed: 04/06/24 I am a: Patient What is your living situation today?: I have a steady place to live Within the past 12 months, did the food you bought not last and you didn't have the money to get more?: Often true Within the past 12 months, did you worry whether your food would run out before you got money to buy more?: Often true Do you have trouble paying for medicines?: No Do you have trouble getting transportation to medical appointments?: Yes Do you have trouble paying your heating and electricity bill?: No Do you have trouble taking care of your child, family member or friend?: No Do you have trouble with day-to-day activities such as bathing, preparing meals, shopping, managing finances, etc.?: No Are you currently unemployed and looking for a job?: Yes Are you interested in more education?: No Please select the resources that you would like help with: None Currently or been in a relationship where the following occur: No concerns reported THRIVE Score: 3 AUDIT C Alcohol Use Questionnaire (AUDIT-C) 1. How often do you have a drink containing alcohol?: Never Total Score: 0 ROWAN-7 AMB Questionnaire ROWAN-7 Date ROWAN - 7 assessed: 04/06/24 Feeling nervous, anxious, or on edge: 0 = Not at all Not being able to stop or control worryin = Not at all Worrying too much about different things: 0 = Not at all Trouble relaxin = Not at all Being so restless that it is hard to sit still: 0 = Not at all Becoming easily annoyed or irritable: 0 = Not at all Feeling afraid as if something awful might happen: 0 = Not at all Total ROWAN-7 score (0-4 normal; 5-9 mild; 10-14 moderate; 15-21 severe): 0 Source: Developed by Drs. Zachariah Du, Jaylin Saucedo, Garrison Field and colleagues, with an educational jessika from [employer]. ROWAN-7 Assessment Billing ROWAN-7 Assessment Tool: ROWAN-7 Assessment 25000 Review of Systems Const All systems reviewed & are unremarkable except as noted in HPI and below Card Denies chest pain at rest, Denies chest pain with activity, Denies edema, Denies irregular heart rhythm, Denies claudication, Denies dyspnea, Denies dyspnea on exertion, Denies orthopnea, Denies paroxysmal nocturnal dyspnea and Denies slow heart rate Resp Denies cough, Denies dyspnea and Denies dyspnea on exertion Denies urinary incontinence, Denies urinary hesitancy and Denies urinary urgency Musc Denies atrophy, Denies deformity and Denies limited range of motion Skin/Breast Denies bleeding lesions, Denies changing lesions and Denies rash Physical exam (Primary Care) Vital Signs: Last Vital Signs BP 140/82 H 04/06/24 13:32 BMI result Body Mass Index 35.4 BMI Assessment/Plan discussion: High BMI High, discussed plan: lifestyle, weight reduction, dietary and physical activity Tobacco/Smoking Status: Tobacco use Status Tobacco use date assessed 11/04/23 04/06/24 13:38 Patient Tobacco Use Status Never used Tobacco 04/06/24 13:38 Tobacco use type Cigarette 04/06/24 13:38 e-Cigarette/Vaping Use Never Used 04/06/24 13:38 PHQ-9: PHQ-9 Score PHQ-9: Total score 0 04/06/24 14:12 Depression Screening Interpretation: Negative Thrive Assessment: Date of Thrive Assessment Date Thrive assessed 04/06/24 04/06/24 13:38 Currently or been in a relationship where the following occur: No concerns reported [facility] Head: Yes normal to inspection, Yes normocephalic and Yes atraumatic Ears: external ears normal Eyes General: appearance normal, both eyes and all related structures Eyelids: Yes eyelids normal Conjunctivae: conjunctivae normal Resp Effort & Inspection: normal respiratory effort Auscultation: clear to auscultation bilaterally Cardio Jugular venous distension: no JVD Rate: regular rate Rhythm: regular rhythm Heart sounds: S1 normal heart sound present and S2 normal heart sound present GI Inspection: Yes normal to inspection Palpation (GI): Soft to palpation and nontender Auscultation: normal bowel sounds Skin General skin exam: no rashes or lesions noted Neuro General: no focal motor deficits Extrem General: Yes full ROM Psych Appearance: grossly normal Office Procedures Flu Questionnaire Does the patient have a severe egg allergy?: No Does the patient have severe life threatening allergies?: No Does the patient have a fever or illness today?: No Has the patient ever had Guillain-Gillett Syndrome?: No Has the patient ever had any past reaction to a flu shot?: No Immunizations Fluarix Triv [id number] (PF) 45 mcg (15 mcg x 3)/0.5 mL IM syringe Performing Provider: Zhanna Dee MD [facility] [place] [facility] Administered by: MIQUEL Eisenberg on 04/06/24 14:11 Dose Route Admin Location Dispensed Lot Number Expiration Date [facility] Curtain Cutter Hand 0.5 mL IM Right Deltoid 0.5 mL [id number] 12/06/24 74932-823-53 [employer] VIS Given Date VIS Provided VIS Publication Date 04/06/24 Single Vaccine 21 Eligibility Eligibility Date Funding Source Not [facility] Eligible 04/06/24 Private Coding Level of Care Code Est Pt Prev Care 40-64y(92989) Diagnoses Encounter for physical examination Z00.00 Additional Codes ROWAN-7 Assessment Billing - ROWAN-7 Assessment Tool: ROWAN-7 Assessment 75685 ([id number]) Time Spent (min) 30 Assessment & Plan Assessment & Plan (1) Encounter for physical examination: Code(s): Z00.00 - Encounter for general adult medical examination without abnormal findings Category: Medical Plan: Repeat in a year. Orders: Orders Influenza [id number] Immunization Today Z23 - Encounter for immunization Lipid Panel Today E78.5 - Hyperlipidemia, unspecified, I10 - Essential (primary) hypertension Comprehensive [place]. Panel Fast Today I10 - Essential (primary) hypertension Complete Blood Count Auto Diff Today D50.0 - Iron deficiency anemia secondary to blood loss (chronic), D64.9 - Anemia, unspecified IRON PROFILE Today D50.0 - Iron deficiency anemia secondary to blood loss (chronic), D64.9 - Anemia, unspecified Referrals Open Access Screening Colonoscopy Referral Z12.12 - Encounter for screening for malignant neoplasm of rectum
[2024-04-06 13:32] VITALS: BP 140/82; BMI 35.4
== END 2024-04-06 14:09 | disposition home or self-care (01) ==
LOC: HO.HMCH 13:29
PROVIDERS: PCP Internal Medicine; Visit Provider Internal Medicine
DX: Z23 Encounter for immunization (principal); Z00.00 Encounter for general adult medical examination without abnormal findings

== ENCOUNTER → 2024-04-06 13:29 | Outpatient (BNVA) | payer OTHER, SELFPAY | PROVIDERS: PCP Internal Medicine; Visit Provider Internal Medicine | DX: Z00.00 Encounter for general adult medical examination without abnormal findings (principal); Z23 Encounter for immunization | CPT/HCPCS: 90471; 90656; 96127 ==

== ENCOUNTER 2024-08-26 11:18 | Outpatient (AMB) | payer OTHER, SELFPAY ==
--- NOTE | 2024-08-26 11:25 | A.OFFPC_ITS ---
Vital Signs 08/26/24 11:26 Height 5 ft 4 in Weight 207 lb BMI 35.5 BP 144/80 H Blood Pressure Location Lt brachial Position Sitting Intake Visit Reasons: Headache and abdominal pain Electromechanical Equipment Assembler Required: Yes Electromechanical Equipment Assembler Language: Adaptive Physical Education Specialist Name: Zhanna Dee MD Information Interpreted: non-clinical & clinical Accompanied by: Self / Same As Patient Allergies No Known Allergies [No Known Allergies*] Allergy (Verified 08/26/24 11:32) Medication List - Last Reconciled 08/26/24 by Zhanna Dee MD albuterol sulfate 90 mcg/actuation 2 puffs inhalation 6XD PRN 30 days cetirizine (All Day Allergy (cetirizine)) 10 mg PO DAILY PRN 90 days copper (ParaGard T 380A) intrauterine lisinopril 40 mg PO DAILY 90 days omeprazole 20 mg PO DAILY PRN 90 days Tobacco use date assessed: 08/26/24 Dental Screening Dental Screen Date: 08/26/24 Did you have a dental visit in the last 12 months?: Yes Did you have a dental problem in the last 6 months where you did not have access to dental care?: No Was dental information given to patient?: Patient has dentist HPI HPI Comments History of Present Illness Details The patient is a 48-year-old female presenting with non quantified fever and exacerbated symptoms related to gastroesophageal reflux disease. Recent episodes of fever have been noted, presenting without clear temperature readings but with sensations of heat localized to the eyes. Her reflux symptoms appear to have intensified, leading to a consideration of further gastroenterological evaluation. Headaches are reported as occurring two to three times monthly, predominantly impacting the frontal and occipital regions without visual disturbances or unilateral weakness but accompanied by episodes of extreme fatigue. Her bowel habits fluctuate between constipation and diarrhea, prompting concerns requiring further investigation. Additionally, urinary patterns include episodes of oliguria, suggesting the possibility of a urinary tract infection, alongside reports of pelvic pain which could be attributable to either intestinal or urinary origins. [facility] Medical History (Updated 08/26/24 @ 12:03 by Zhanna Dee MD) Encounter for physical examination Shortness of breath Well woman exam with routine gynecological exam Cervical cancer screening Counseling for control, intrauterine device BCP ( control pills) initiation Dyspnea on exertion Well woman exam Skin candidiasis Iron deficiency anemia due to chronic blood loss Obese Left sided sciatica Hypertension Surgical History No pertinent past surgical history Family History Mother Diabetes Hypertension Father No problems noted. Brother Colon cancer Social History Household Members: Spouse, Family and Children Housing: Apartment Alcohol intake: never Patient Tobacco Use Status: Never used Tobacco Tobacco use type: Cigarette e-Cigarette/Vaping Use: Never Used Second Hand Smoke Exposure: No service: No Current occupational status: unemployed Cognitive needs: No Hearing needs: No Vision needs: Yes Female Reproductive History Menstrual Age of Menarche: 10 Questionnaire PHQ-9 Over the last 2 weeks, how often have you been bothered by any of the following problems? 1. Little interest or pleasure in doing things: not at all 2. Feeling down, depressed, or hopeless: not at all 3. Trouble falling or staying asleep, or sleeping too much: not at all 4. Feeling tired or having little energy: not at all 5. Poor appetite or overeating: not at all 6. Feeling bad about yourself - or that you are a failure or have let yourself or your family down: not at all 7. Trouble concentrating on things, such as reading the newspaper or watching television: not at all 8. Moving or speaking so slowly that other people could have noticed. Or the opposite - being so fidgety or restless that you have been moving around a lot more than usual: not at all 9. Thoughts that you would be better off or of hurting yourself in some way: not at all Total score: 0 Depression Screening Interpretation: Negative Depression Screening Done: Yes 95521 - PHQ-9 Billing: Yes Source: Developed by Drs. Zachariah Du, Jaylin Saucedo, Garrison Field and colleagues, with an educational jessika from [employer]. Thrive Questionnaire Date Thrive assessed: 08/26/24 I am a: Patient What is your living situation today?: I have a steady place to live Within the past 12 months, did the food you bought not last and you didn't have the money to get more?: Often true Within the past 12 months, did you worry whether your food would run out before you got money to buy more?: Often true Do you have trouble paying for medicines?: No Do you have trouble getting transportation to medical appointments?: No Do you have trouble paying your heating and electricity bill?: No Do you have trouble taking care of your child, family member or friend?: No Do you have trouble with day-to-day activities such as bathing, preparing meals, shopping, managing finances, etc.?: No Are you currently unemployed and looking for a job?: No Are you interested in more education?: No Please select the resources that you would like help with: None Currently or been in a relationship where the following occur: No concerns reported THRIVE Score: 2 AUDIT C Alcohol Use Questionnaire (AUDIT-C) 1. How often do you have a drink containing alcohol?: Never Total Score: 0 ROWAN-7 AMB Questionnaire ROWAN-7 Date ROWAN - 7 assessed: 08/26/24 Feeling nervous, anxious, or on edge: 0 = Not at all Not being able to stop or control worryin = Not at all Worrying too much about different things: 0 = Not at all Trouble relaxin = Not at all Being so restless that it is hard to sit still: 0 = Not at all Becoming easily annoyed or irritable: 0 = Not at all Feeling afraid as if something awful might happen: 0 = Not at all Total ROWAN-7 score (0-4 normal; 5-9 mild; 10-14 moderate; 15-21 severe): 0 Source: Developed by Drs. Zachariah Du, Jaylin Saucedo, Garrison Field and colleagues, with an educational jessika from [employer]. Review of Systems Const All systems reviewed & are unremarkable except as noted in HPI and below Card Denies chest pain at rest, Denies chest pain with activity, Denies edema, Denies irregular heart rhythm, Denies claudication, Denies dyspnea, Denies dyspnea on exertion, Denies orthopnea, Denies paroxysmal nocturnal dyspnea and Denies slow heart rate Resp Denies cough, Denies dyspnea and Denies dyspnea on exertion GI Denies abdominal pain, Denies change in bowel habits, Denies excessive flatus, Denies nausea and Denies vomiting Physical exam (Primary Care) Vital Signs: Last Vital Signs BP 144/80 H 08/26/24 11:26 BMI result Body Mass Index 35.5 Tobacco/Smoking Status: Tobacco use Status Tobacco use date assessed 11/04/23 04/06/24 13:38 Patient Tobacco Use Status Never used Tobacco 04/06/24 13:38 Tobacco use type Cigarette 04/06/24 13:38 e-Cigarette/Vaping Use Never Used 04/06/24 13:38 Depression Screening Interpretation: Negative Thrive Assessment: Date of Thrive Assessment Date Thrive assessed 04/06/24 04/06/24 13:38 Currently or been in a relationship where the following occur: No concerns reported Resp Effort & Inspection: normal respiratory effort Auscultation: clear to auscultation bilaterally Cardio Jugular venous distension: no JVD Rate: regular rate Rhythm: regular rhythm Heart sounds: S1 normal heart sound present and S2 normal heart sound present Extrem General: Yes full ROM Coding Level of Care Code Est Pt Level 4 (58676) Complex EM visit Add On G2211 Diagnoses Pelvic pain in female R10.2 Iron deficiency anemia due to chronic blood loss D50.0 Chronic GERD K21.9 Headache R51.9 Additional Codes PHQ-9 - 33065 - PHQ-9 Billing: Yes ([id number]) Time Spent (min) 22 Assessment & Plan Assessment & Plan (1) Pelvic pain in female: Code(s): R10.2 - Pelvic and perineal pain Category: Medical (2) Iron deficiency anemia due to chronic blood loss: Code(s): D50.0 - Iron deficiency anemia secondary to blood loss (chronic) Category: Medical (3) Chronic GERD: Code(s): K21.9 - Gastro-esophageal reflux disease without esophagitis Category: Medical (4) Headache: Code(s): R51.9 - Headache, unspecified Category: Medical Plan Lab testing for anemia and urinary infection is planned. Refer to gastroenterology for persistent reflux symptoms and possible endoscopy. Prescribe headache medication to address episodic symptoms. Evaluate pelvis with ultrasound to explore underlying causes of pelvic pain. Renew omeprazole medication to manage reflux. Patient was informed and verbally consented to the use of an ambient scribe for clinic note documentation during this visit. During the consultation, I reviewed the patient's symptoms in detail, addressing the exacerbation of reflux symptoms and her recurrent headaches. The patient was informed of the importance of a gastroenterological referral to determine the need for possible endoscopic evaluation. We discussed headache management with medication and its possible side effects, highlighting the importance of taking it with food. Additionally, the potential connection between her constipation, diarrhea, and reflux was discussed, prompting the referral for further gas trointestinal evaluation. I explained the rationale behind urinalysis and hemoglobin testing, and we talked about evaluating pelvic pain through ultrasound, ensuring the patient is aware of the investigational nature of the procedure. She consented to the outlined management plans and agreed on the necessity of a lab workup to gain further clarity on her symptoms. Orders: Orders Complete Blood Count Auto Diff Today D64.9 - Anemia, unspecified IRON PROFILE Today D64.9 - Anemia, unspecified UA CC w/rflx Micro + Cult Today R30.0 - Dysuria US pelvic and transvaginal Today R10.2 - Pelvic and perineal pain Referrals Gastroenterology Referral K21.9 - Gastro-esophageal reflux disease without esophagitis Medications: New pantoprazole 40 mg PO DAILY 90 days 90 tabs 1RF sumatriptan succinate do not exceed 8 doses per 24 hrs 25 mg PO Q2-4H 30 days PRN 9 tabs 0RF migraine headache ciprofloxacin HCl (Cipro) 250 mg PO BID 3 days 6 tabs 0RF Patient Instructions: - Continue taking omeprazole as directed for reflux - Follow up with the industrial hygenist for possible endoscopy - Take headache medication with food to reduce side effects - Complete all lab testing as requested - Monitor symptoms and report any worsening - Follow up as scheduled or sooner if symptoms worsen - Start Empiric antibiotic.
[2024-08-26 11:26] VITALS: BP 144/80; BMI 35.5
== END 2024-08-26 11:42 | disposition home or self-care (01) ==
LOC: HO.HMCH 11:19
PROVIDERS: PCP Internal Medicine; Visit Provider Internal Medicine
DX: R10.2 Pelvic and perineal pain (principal); D50.0 Iron deficiency anemia secondary to blood loss (chronic); K21.9 Gastro-esophageal reflux disease without esophagitis; R51.9 Headache, unspecified

== ENCOUNTER 2024-08-26 11:18 | Outpatient (REF) | payer OTHER, SELFPAY ==
[2024-08-26 12:08] LABS: MANUAL DIFF FLAG NO
[2024-08-26 13:06] LABS: Basophils Absolute Auto 0.1 X10*3/uL (0.0-0.2); Basophils Percent Auto 0.6 % (0-2); Eosinophils Absolute Auto 0.3 X10*3/uL (0.0-0.4); Eosinophils Percent Auto 2.7 % (0-4); Hematocrit 33.1 % (37.0-47.0); Hemoglobin 10.3 g/dl (12.0-16.0); Imm Gran Abs Auto 0.05 X10*3/uL (0.00-0.03); Imm Gran Pct Auto 0.5 % (0.0-0.4); Lymphocytes Absolute Auto 2.3 X10*3/uL (1.2-4.9); Lymphocytes Percent Auto 21.3 % (20-40); Mean Corpuscular HGB Conc 31.1 g/dl (31.0-35.0); Mean Corpuscular Hemoglobin 22.4 pg (27.0-33.0); Mean Platelet Volume 9.7 fL (9.4-12.3); Monocytes Absolute Auto 0.9 X10*3/uL (0.1-1.2); Monocytes Percent Auto 8.4 % (2-11); Neutrophils Absolute Auto 7.3 x10*3/uL (2.0-8.3); Neutrophils Percent Auto 66.5 % (45-73); Platelet Count 397 X10*3/uL (160-400); Red Cell Distribution Width 21.6 % (11.0-16.0); White Blood Count 10.9 X10*3/uL (4.8-10.8)
[2024-08-26 13:54] LABS: Alanine Aminotransferase 15 U/L (0-31); Albumin Level 3.9 g/dL (3.5-5.0); Alkaline Phosphatase 92 U/L (39-117); Anion Gap 10 (12-20); Appearance Urine Clear; Aspartate Amino Transferase 14 U/L (5-31); Bilirubin Total 0.4 mg/dL (0.0-1.0); Blood Urea Nitrogen 16 mg/dL (9-16); Calcium 8.8 mg/dL (8.4-10.2); Carbon Dioxide 26 mmol/L (22-29); Chloride 107 mmol/L (96-108); Cholesterol 179 mg/dL (<200); Color Urine Yellow; Estimated Glomerular Filt Rate > 60; Glucose Fasting 85 mg/dL (60-99); Glucose Urine UA Negative (Negative); HDL Cholesterol 42 mg/dL (>40); Iron 54 mcg/dL (30-160); LDL Cholesterol Calculated 107 mg/dL (<100); Leukocyte Esterase Urine Negative (Negative); Nitrite Urine Negative (Negative); PH 5.5 (5.0-9.0); Percent Iron Saturation 17 % (15-50); Potassium 4.1 mmol/L (3.3-5.1); Sodium 139 mmol/L (135-145); Specific Gravity - Urine 1.025 (1.005-1.025); Total Iron Binding Capacity 322 mcg/dL (228-428); Total Protein 7.2 g/dL (6.5-8.0); Triglycerides 152 mg/dL (<150); UMIC TRIGGER UACC YES; Unsaturated Iron Binding 268 ug/dL; Urine Blood Trace (Negative); Urine Ketones Negative (Negative); Urine Protein Negative (Neg-Trace)
[2024-08-26 14:02] LABS: Bacteria Urine None Seen (None Seen); Hyaline Casts Urine 0-2 /LPF (0-2); RBC Urine 0-2 /HPF (0-2); Squamous Epithelial Cell Urine 0-2 /HPF (0-2); WBC Urine 0-5 /HPF (0-5)
== END 2024-08-26 11:19 | disposition home or self-care (01) ==
LOC: HO.LAB 11:18
PROVIDERS: PCP Internal Medicine; Visit Provider Internal Medicine
DX: R10.2 Pelvic and perineal pain (principal); D50.0 Iron deficiency anemia secondary to blood loss (chronic); K21.9 Gastro-esophageal reflux disease without esophagitis; R51.9 Headache, unspecified; R30.0 Dysuria; I10 Essential (primary) hypertension; E78.5 Hyperlipidemia, unspecified
CPT/HCPCS: 36415; 80053; 80061; 81001; 83540; 85025; 96127

== ENCOUNTER 2024-09-22 14:00 | Outpatient (REF) | payer OTHER, SELFPAY ==
--- NOTE | ~2024-09-22 | US_ITS ---
CLINICAL HISTORY: R10.2 - Pelvic and perineal pain US pelvis transabdominal and transvaginal Comparison: CT/LA/SR - CT ABDOMEN PELVIS WO/W IV CON - 10/08/23 16:15 EDT US/LA/SR - US PELVIC AND TRANSVAGINAL - 05/11/23 11:46 EST Findings: Transabdominal scanning performed for overall anatomy. Transvaginal scanning performed for additional detail. Anteverted uterus is 12 cm length. There is a 2.2 x 2.0 x 2.7 cm intramural versus submucosal fibroid within the right uterine body (previously 1.5 x 1.0 x 1.4 cm). There is an intrauterine device within the endometrial canal. Endometrium 10 mm thickness. Right ovary 2.3 x 1.5 x 1.0 cm. Left ovary 3.2 x 2.3 x 2.7 cm. There is a 2.6 x 2.1 x 2.8 cm complex cyst within the left ovary, compatible with a hemorrhagic physiologic cyst. Normal color Doppler of both ovaries. No free fluid. IMPRESSION: 1. Small intramural versus submucosal fibroid. 2. Mild endometrial thickening. 3. There is an intrauterine device within the endometrial canal This document has been electronically signed by: Salima Dotson MD on 09/23/2024 14:16:47
== END 2024-09-22 14:01 | disposition home or self-care (01) ==
LOC: HO.US 14:00
PROVIDERS: PCP Internal Medicine; Visit Provider Internal Medicine
DX: R10.2 Pelvic and perineal pain (principal)
CPT/HCPCS: 76830; 76856

== ENCOUNTER → 2024-09-22 14:02 | Outpatient (BNV) | payer OTHER, SELFPAY | PROVIDERS: PCP Internal Medicine; Visit Provider Radiology Diagnostic Radiology | DX: R10.2 Pelvic and perineal pain (principal); Z97.5 Presence of (intrauterine) contraceptive device | CPT/HCPCS: 76830; 76856 ==

== ENCOUNTER 2024-12-09 01:48 | Emergency (ER) | payer OTHER, SELFPAY ==
--- NOTE | ~2024-12-09 | XR_ITS ---
CLINICAL HISTORY: pain 2 view chest x-ray Comparison: None provided Findings: No consolidation or effusion. Normal size heart. No acute fracture. IMPRESSION: 1. No acute findings. This document has been electronically signed by: Zachariah Kelly MD on 12/09/2024 04:34:19
--- NOTE | ~2024-12-09 | CT_ITS ---
CLINICAL HISTORY: pain R side radicular symptoms worsening, swollen CT cervical spine without contrast Comparison: None provided Findings: Normal vertebral body alignment. There is loss of normal cervical lordosis likely due to spondylosis changes. There is multilevel facet and uncinate hypertrophy. Multilevel small disc osteophyte complexes. Posterior bulging annulus and/or small central posterior disc protrusion C2-C3. There is multilevel multifactorial mild central canal stenosis. There is doeh-de-bdkztohl left foraminal stenosis C5-C6. There osteophytes and erosive changes of the right C2-C3 facets. No acute fractures or dislocations. Incidentally noted is asymmetric enlargement right internal jugular vein compared to the left internal jugular vein. Visualized intracranial contents are unremarkable. No cervical fluid collections or masses. There is artifact versus right lobe thyroid nodule. No consolidation or effusion at the lung apices. IMPRESSION: Multilevel spondylosis as above Right C2-C3 spondylosis changes, there are erosive changes as well which could be due tosynovitis can not exclude infectious synovitis, this could be further evaluated with MRI cervical spine with and without contrast artifact versus right lobe thyroid nodule, Thyroid ultrasound follow-up is recommended This document has been electronically signed by: Zachariah Kelly MD on 12/09/2024 05:17:18
[2024-12-09 01:55] VITALS: BP 176/73; PULSE 82; RESP 17; TEMP 37.2; O2SAT 99; BMI 40.2
--- NOTE | 2024-12-09 02:06 | ED_ITS ---
HPI - Neck Pain/Injury General Chief Complaint: General Medical Stated Complaint: neck pain, right arm pain Time Seen by Provider: 12/09/24 01:54 Source: patient, old records reviewed and gis scientist Mode of arrival: ambulatory Limitations: no limitations History of Present Illness ED Provider: LAITH PADRON Narrative: 49 yo female with PMH of asthma, headaches, sciatica, GERD, HTN here with c/o 2 months of feeling inner heat, tired, fatigue and feeling like she has inflammation and swelling to nose, upper shoulders. She has pain in the neck that makes it feel like something is moving down the sides of the head. No numnbess, weakness, no fevers, no travel, no tick bites. She denies weight loss, chest pain, dyspnea. She feels she has inflammation everywhere - she has no hx of autoimmune disorder, lupus. Onset (ago): month(s) (2) Place: home Radiation: right lateral Severity: moderate Quality: aching Duration: constant Relieving factors: none Exacerbating factors: movement of neck Context: unknown Associated symptoms: headache and other Treatments prior to arrival: none Related Data Home Medications ?Medication ?Instructions ?Recorded ?Confirmed copper 380 square mm intrauterine intrauterine 2 08/26/24 device (ParaGard T 380A) Previous Rx's ?Medication ?Instructions ?Recorded albuterol sulfate 90 mcg/actuation 2 puff inhalation 6 XD PRN 04/05/22 aerosol inhaler shortness of breath or wheez ing 30 days #1 ea cetirizine 10 mg tablet (All Day 10 mg PO DAILY PRN al lergy 11/04/23 Allergy (cetirizine)) symptoms 90 days #90 tabs lisinopril 40 mg tablet 40 mg PO DAILY 90 days #90 t abs 07/20/24 ciprofloxacin HCl 250 mg tablet 250 mg PO BID 3 days # 6 tabs 08/26/24 (Cipro) pantoprazole 40 mg tablet,delayed 40 mg PO DAILY 90 da ys #90 tabs 08/26/24 release sumatriptan succinate 25 mg tablet 25 mg PO Q2-4H PRN migraine 09/23/24 headache 30 days #9 tabs Allergies Allergy/AdvReac Type Severity Reaction Status Date / Time No Known Allergies (No Known Allergy Verified 12/09/24 02:07 Allergies*) Review of Systems 2 Review of Systems: Constitutional : No Fever, No Chills, pos Fatigue, pos fatigue ENT/Mouth : No sore throat, No Rhinorrhea Eyes: No Eye Pain, No Swelling, No Redness Cardiovascular : No Chest Pain, No SOB, No Dyspnea on Exertion Respiratory : No Cough, No Sputum Gastrointestinal : No Nausea, No Vomiting, No Diarrhea, No abdominal Pain Genitourinary : No Dysuria, No Urinary Frequency, No Hematuria, Musculoskeletal : No joint pain, pos Myalgias, No Joint Swelling, pos neck pain Skin : No Skin Lesions, No rash Neuro : No Weakness, No Numbness, No Dizziness, positive Headache All other systems reviewed and are negative [facility] Past Medical History Attestation statement: The following information was validated with the patient. Source: old records reviewed Medical History Encounter for physical examination Shortness of breath Well woman exam with routine gynecological exam Cervical cancer screening Counseling for control, intrauterine device BCP ( control pills) initiation Dyspnea on exertion Well woman exam Skin candidiasis Iron deficiency anemia due to chronic blood loss Obese Left sided sciatica Hypertension Surgical History No pertinent past surgical history Family History Family History Mother Diabetes Hypertension Father No problems noted. Brother Colon cancer Social History Social History Household Members: Spouse, Family and Children Housing: Apartment Alcohol intake: never Patient Tobacco Use Status: Never used Tobacco Tobacco use type: Cigarette Smoked in Last 30 Days: No e-Cigarette/Vaping Use: Never Used Second Hand Smoke Exposure: No Use of substances other than those prescribed or required for medical reasons: No Advance Directives: No Advance Directives Information Provided: Yes Do you have a plan to hurt others: No Plan service: No Current occupational status: unemployed Cognitive needs: No Hearing needs: No Vision needs: Yes Physical Exam 2 Vital Signs: Vital Signs: Last Vital Signs Temp 98.5 F 12/09/24 06:00 Pulse 65 12/09/24 08:55 Resp 16 12/09/24 08:55 BP 129/67 12/09/24 08:55 Pulse Ox 98 12/09/24 08:55 O2 Del Method Room Air 12/09/24 08:55 BMI result Body Mass Index 40.2 Appearance: Alert. Oriented X3. No acute distress. Eyes: Pupils equal, round and reactive to light. ENT: Pharynx normal. no large swelling noted no rash Neck: bilateral trapezius do seem more prominent but no signs of SVC syndrome no engorgement of veins CVS: Normal heart rate and rhythm. Pulses normal. Respiratory: No respiratory distress. Breath sounds normal. Abdomen: Soft and nontender. Skin: Skin warm and dry. Normal skin color. Extremities: No lower extremity edema. Neuro: Oriented X 3. No motor deficit. No sensory deficit. CN2-12 intact Medications Administered Discontinued Medications Generic Name Dose Route Start Last Admin Trade Name Freq PRN Reason Stop Dose Admin Lisinopril 40 mg 12/09/24 06:12 12/09/24 06:21 Lisinopril 40 Mg Tablet PO 12/09/24 06:13 40 mg ONCE ONE Administration Protocol Methocarbamol 750 mg 12/09/24 02:40 12/09/24 02:47 Methocarbamol 750 Mg Tablet PO 12/09/24 02:41 750 mg ONCE ONE Administration Medical Decision Making Medical Decision Making MDM Narrative: 49 yo female with PMH of asthma, headaches, sciatica, GERD, HTN here with c/o feeling her body is inflammed in the neck as well as upper trapezius she feels swollen - she is neuro intact, no red flags and NV intact UE. She will get basic labs, thyroid test, infl marker, CPK and CXR to look for any mass as well as cervical spine for stenosis/DDD. PO muscle relaxer ordered Patient's CT scan showed Right C2-C3 spondylosis changes, there are erosive changes as well which could be due tosynovitis can not exclude infectious synovitis, this could be further evaluated with MRI cervical spine with and without contrast artifact versus right lobe thyroid nodule, Thyroid ultrasound follow-up is recommended Initially an MRI was ordered. I took sign-out on the case at the change of shift. I was called by Radiology Dr. Veronica whom is approving MRI's. [place] patient's CT finding more suggestive of arthritic changes. An addendum was made to the CT report. It shows that the right facet joint hypertrophy, erosive changes most suggestive of arthropathy. Infection is considered less likely at this time. There is no history of diabetes no history of drug use no wheeze history of recent trauma likely patient has old trauma the neural foramina are patent and all cervical disc levels. If there is clinical concern, outpatient MRI of the C-spine can be obtained. On re-examination patient has neck pain on the side. No spinal tenderness. There is no fever no chills. Feels a burning sensation in her neck that has been ongoing for months. There is no focal weakness. Will have patient follow-up on an outpatient basis. Arrange for patient to get an MRI on an outpatient basis. In stable condition. Explained to patient worsening condition return. Differential Diagnosis Differential Diagnoses: The differential diagnosis associated with the presentation includes arthritis, anemia, thyroid pathology, cervical disc ds Admission/Observation Consideration of admission/observation: Escalation of care including admission/observation considered other than TSH work up negative can follow up with PCP mild wbc mild CRP but nothing significant and 2 months of symptoms doubt infection abnormal CT scan of neck will obtain MRI signed out to [facility] provider - Dr. Mckeon Consult Healthcare Provider Management of the patient was discussed with: Media Services Director (Case discussed with Radiology.) Lab Data MDM Lab Attestation statement: I reviewed the patient's lab results. 12/09/24 02:27 12/09/24 02:27 Labs: Lab Results 12/09/24 Range/Units 02:27 WBC 10.9 H (4.8-10.8) X10*3/uL RBC 4.48 (4.20-5.50) X10*6/uL Hgb 10.2 L (12.0-16.0) g/dl Hct 31.8 L (37.0-47.0) % MCV 71.0 L (80.0-98.0) fL MCH 22.8 L (27.0-33.0) pg MCHC 32.1 (31.0-35.0) g/dl RDW 16.9 H (11.0-16.0) % Plt Count 342 (160-400) X10*3/uL MPV 9.0 L (9.4-12.3) fL Immature Gran % (Auto) 0.3 (0.0-0.4) % Neut % (Auto) 55.6 (45-73) % Lymph % (Auto) 29.9 (20-40) % [place] % (Auto) 9.8 (2-11) % Eos % (Auto) 4.0 (0-4) % Baso % (Auto) 0.4 (0-2) % Lymph # (Auto) 3.3 (1.2-4.9) X10*3/uL [place] # (Auto) 1.1 (0.1-1.2) X10*3/uL Eos # (Auto) 0.4 (0.0-0.4) X10*3/uL Baso # (Auto) 0.0 (0.0-0.2) X10*3/uL Abs Immat Gran (auto) 0.03 (0.00-0.03) X10*3/uL Absolute Neuts (auto) 6.1 (2.0-8.3) x10*3/uL Absolute Nucleated RBC 0.000 (0.0-0.012) X10*3/uL Nucleated RBC % (auto) 0.0 (0.0-0.2) /100WBC Sodium 138 (135-145) mmol/L Potassium 4.4 (3.3-5.1) mmol/L Chloride 103 (96-108) mmol/L Carbon Dioxide 28 (22-29) mmol/L Anion Gap 11 L (12-20) BUN 14 (9-16) mg/dL Creatinine 1.03 (0.5-1.4) mg/dL Estim Creat Clear Calc 71.3 Estimated GFR 56 Random Glucose 107 (60-115) mg/dL Calcium 9.0 (8.4-10.2) mg/dL Magnesium 2.1 (1.6-2.6) mg/dL Total Bilirubin 0.1 (0.0-1.0) mg/dL Direct Bilirubin < 0.2 (0.0-0.5) mg/dL AST 17 (5-31) U/L ALT 20 (0-31) U/L Alkaline Phosphatase 104 (39-117) U/L Total Creatine Kinase 88 (26-140) U/L C-Reactive Protein 0.77 H (< or = 0.50) mg/dL Total Protein 6.7 (6.5-8.0) g/dL Albumin 4.1 (3.5-5.0) g/dL TSH 8.46 H (0.32-4.0) uIU/mL Free T4 0.83 (0.71-1.85) ng/dL Independent Interpretation I performed an independent interpretation of an: Plain X-Ray and CT Scan Radiology Impression Discussion of test interpretation with radiology: I discussed test interpretation with the radiologist (Discussed the case with Dr. Veronica) and I have reviewed the radiologist's reading. Independent Historian Clinical information obtained from an independent historian. History obtained from or confirmed by: Other (daughter) External Record Review External record reviewed: Outpatient record Prescription Management I considered prescription management with: Pain Medication and Other Social Determinants Patient?s care significantly limited by Social Determinants of Health including: Problems related to primary support group Discharge Plan Discharge Clinical Impression: Neck and shoulder pain, Myalgia Patient Disposition: Home, Self-Care Instructions: Musculoskeletal Pain (ED), Acute Neck Pain (ED) Additional Instructions: your blood counts, kidney funtion, liver tests are normal your thyroid was slighty underactive - your doctor can monitor this and repeat test in 1 week xray was normal please call your primary care doctor and follow up you may need further testing for your symptoms return for the ED for any worsening symptoms or concerns Please get MRI her neck done on an outpatient basis. A copy of the MRI request was given to you. Please follow-up with your primary physician. If worsening condition weakness, fever return immediately. Prescriptions: No Action lisinopril 40 mg tablet 40 mg PO DAILY 90 Days Qty: 90 0RF sumatriptan succinate 25 mg tablet 25 mg PO Q2-4H PRN (Reason: migraine headache) 30 Days Qty: 9 0RF Rx Instructions: do not exceed 8 doses per 24 hrs cetirizine [All Day Allergy (cetirizine)] 10 mg tablet 10 mg PO DAILY PRN (Reason: allergy symptoms) 90 Days Qty: 90 0RF ParaGard T 380A 380 square mm intrauterine device intrauterine albuterol sulfate 90 mcg/actuation HFA aerosol inhaler 2 puff inhalation 6XD PRN (Reason: shortness of breath or wheezing) 30 Days Qty: 1 6RF pantoprazole 40 mg tablet,delayed release (DR/EC) 40 mg PO DAILY 90 Days Qty: 90 1RF ciprofloxacin HCl [Cipro] 250 mg tablet 250 mg PO BID 3 Days Qty: 6 0RF Referrals: Zhanna Castrejon MD [Primary Care Provider, Internal Medicine] - 5 days Print Language: Serbian
[2024-12-09 02:31] LABS: MANUAL DIFF FLAG NO
[2024-12-09 02:32] LABS: Hematocrit 31.8 % (37.0-47.0); Hemoglobin 10.2 g/dl (12.0-16.0); Imm Gran Abs Auto 0.03 X10*3/uL (0.00-0.03); Imm Gran Pct Auto 0.3 % (0.0-0.4); Lymphocytes Absolute Auto 3.3 X10*3/uL (1.2-4.9); Mean Corpuscular HGB Conc 32.1 g/dl (31.0-35.0); Mean Corpuscular Hemoglobin 22.8 pg (27.0-33.0); Mean Corpuscular Volume 71.0 fL (80.0-98.0); NRBC Abs Auto 0.000 X10*3/uL (0.0-0.012); NRBC Pct Auto 0.0 /100WBC (0.0-0.2); Platelet Count 342 X10*3/uL (160-400); Red Blood Count 4.48 X10*6/uL (4.20-5.50); White Blood Count 10.9 X10*3/uL (4.8-10.8)
[2024-12-09 02:49] LABS: Anion Gap 11 (12-20); Blood Urea Nitrogen 14 mg/dL (9-16); Calcium 9.0 mg/dL (8.4-10.2); Carbon Dioxide 28 mmol/L (22-29); Chloride 103 mmol/L (96-108); Creatinine Clr Calc Pharmacy 71.3; Estimated Glomerular Filt Rate 56; Magnesium 2.1 mg/dL (1.6-2.6); Potassium 4.4 mmol/L (3.3-5.1); Sodium 138 mmol/L (135-145)
[2024-12-09 02:55] LABS: Alanine Aminotransferase 20 U/L (0-31); Albumin Level 4.1 g/dL (3.5-5.0); Alkaline Phosphatase 104 U/L (39-117); Aspartate Amino Transferase 17 U/L (5-31); Total Protein 6.7 g/dL (6.5-8.0)
[2024-12-09 03:42] LABS: Free T4 (Free Thyroxine) 0.83 ng/dL (0.71-1.85)
[2024-12-09 06:00] VITALS: BP 175/70; PULSE 79; RESP 16; TEMP 36.9; O2SAT 98
--- NOTE | 2024-12-09 06:09 | PC.NURSE ---
MRI form completed at bedside with patient and scenery builder. Faxed to MRI. BP elevated- informed provider.
[2024-12-09 06:21] VITALS: BP 175/70
--- NOTE | 2024-12-09 06:23 | PC.NURSE ---
Pt medicated per AUG for hypertension.
[2024-12-09 08:55] VITALS: BP 129/67; PULSE 65; RESP 16; O2SAT 98
[2024-12-09 10:28] VITALS: BP 129/67; PULSE 65; RESP 16; TEMP 37; O2SAT 98
== END 2024-12-09 10:29 | disposition home or self-care (01) ==
PROVIDERS: Emergency Provider Emergency Medicine; PCP Internal Medicine
DX: M54.2 Cervicalgia (principal); M79.601 Pain in right arm; M79.10 Myalgia, unspecified site; R07.89 Other chest pain; I10 Essential (primary) hypertension; R51.9 Headache, unspecified; Z79.899 Other long term (current) drug therapy
CPT/HCPCS: 36415; 71046; 72125; 80048; 80076; 82550; 83735; 84439; 84443; 85025; 86140; 99284

== ENCOUNTER → 2024-12-09 02:17 | Outpatient (BNV) | payer OTHER, SELFPAY | PROVIDERS: Emergency Provider Emergency Medicine; PCP Internal Medicine; Visit Provider Radiology Diagnostic Radiology | DX: M47.812 Spondylosis without myelopathy or radiculopathy, cervical region (principal); R07.9 Chest pain, unspecified | CPT/HCPCS: 71046; 72125 ==

== ENCOUNTER 2024-12-24 15:36 | Outpatient (AMB) | payer OTHER, SELFPAY ==
--- NOTE | 2024-12-24 15:40 | A.OFFPC_ITS ---
Vital Signs 12/24/24 15:42 Height 5 ft 2 in Weight 211 lb 2 oz BMI 38.6 BP 122/78 Blood Pressure Location Lt brachial Position Sitting Pulse 89 Pulse Source Pulse Oximeter Temp 97.1 F Temp Source Temporal Artery Scan Pulse Oximetry (%) 97 Oxygen Delivery Method Room Air Intake Visit Reasons: [facility] [place] [facility] 12/09 Neck/arm pain Intake Note: Patient is here to follow-up after a visit the emergency department at [facility] [place] on 12/09/24 Band Tier Required: Yes Band Tier Language: Corporate Analyst Name: Dashawn ([id number]) Information Interpreted: non-clinical & clinical Expander: Not Required per policy Accompanied by: Self / Same As Patient Allergies No Known Allergies (No Known Allergies*) Allergy (Verified 12/24/24 15:42) Tobacco use date assessed: 12/24/24 Dental Screening Dental Screen Date: 08/26/24 HPI HPI Comments History of Present Illness Details 49 y/o Female patient who presents to [facility] today for EDF. She was admitted at [facility] [place] on 12/09 for an evaluation and treatment of Cerviclagia. Today reports great improvement on the pain, and willing to continue on pain medications OTC plus she is okay trying Physical therapy for the neck. Pt c/o Generalized Pruritis and asking for medications. [facility], [facility] Medical History (Updated 12/24/24 @ 16:03 by Angela Quintanilla NP) Cervicalgia Encounter for physical examination Shortness of breath Well woman exam with routine gynecological exam Cervical cancer screening Counseling for control, intrauterine device BCP ( control pills) initiation Dyspnea on exertion Well woman exam Skin candidiasis Iron deficiency anemia due to chronic blood loss Obese Left sided sciatica Hypertension Surgical History No pertinent past surgical history Family History Mother Diabetes Hypertension Father No problems noted. Brother Colon cancer Social History Household Members: Spouse, Family and Children Housing: Apartment Alcohol intake: never Patient Tobacco Use Status: Never used Tobacco Tobacco use type: Cigarette e-Cigarette/Vaping Use: Never Used Second Hand Smoke Exposure: No service: No Current occupational status: unemployed Cognitive needs: No Hearing needs: No Vision needs: Yes Female Reproductive History Menstrual Age of Menarche: 10 Questionnaire PHQ-9 Over the last 2 weeks, how often have you been bothered by any of the following problems? 1. Little interest or pleasure in doing things: not at all 2. Feeling down, depressed, or hopeless: not at all 3. Trouble falling or staying asleep, or sleeping too much: not at all 4. Feeling tired or having little energy: several days 5. Poor appetite or overeating: not at all 6. Feeling bad about yourself - or that you are a failure or have let yourself or your family down: not at all 7. Trouble concentrating on things, such as reading the newspaper or watching television: not at all 8. Moving or speaking so slowly that other people could have noticed. Or the opposite - being so fidgety or restless that you have been moving around a lot more than usual: not at all 9. Thoughts that you would be better off or of hurting yourself in some way: not at all Total score: 1 Depression Screening Interpretation: Positive Depression Screening Done: Yes Source: Developed by Drs. Zachariah Du, Jaylin Saucedo, Garrison Field and colleagues, with an educational jessika from [employer]. Thrive Questionnaire Date Thrive assessed: 08/26/24 I am a: Patient What is your living situation today?: I have a steady place to live Within the past 12 months, did the food you bought not last and you didn't have the money to get more?: Often true Within the past 12 months, did you worry whether your food would run out before you got money to buy more?: Never true Do you have trouble paying for medicines?: No Do you have trouble getting transportation to medical appointments?: No Do you have trouble paying your heating and electricity bill?: No Do you have trouble taking care of your child, family member or friend?: No Do you have trouble with day-to-day activities such as bathing, preparing meals, shopping, managing finances, etc.?: No Are you currently unemployed and looking for a job?: Yes Are you interested in more education?: Yes Please select the resources that you would like help with: None Currently or been in a relationship where the following occur: I choose not to answer THRIVE Score: 1 AUDIT C Alcohol Use Questionnaire (AUDIT-C) 1. How often do you have a drink containing alcohol?: Never Total Score: 0 ROWAN-7 AMB Questionnaire ROWAN-7 Date ROWAN - 7 assessed: 08/26/24 Feeling nervous, anxious, or on edge: 0 = Not at all Not being able to stop or control worryin = Not at all Worrying too much about different things: 0 = Not at all Trouble relaxin = Not at all Being so restless that it is hard to sit still: 1 = Several days Becoming easily annoyed or irritable: 1 = Several days Feeling afraid as if something awful might happen: 0 = Not at all Total ROWAN-7 score (0-4 normal; 5-9 mild; 10-14 moderate; 15-21 severe): 2 Source: Developed by Drs. Zachariah Du, Jaylin Saucedo, Garrison Field and colleagues, with an educational jessika from [employer]. Review of Systems Const All systems reviewed & are unremarkable except as noted in HPI and below Physical exam (Primary Care) Vital Signs: Last Vital Signs Temp 97.1 F 12/24/24 15:42 Pulse 89 12/24/24 15:42 BP 122/78 12/24/24 15:42 Pulse Ox 97 12/24/24 15:42 Oxygen Delivery Method Room Air 12/24/24 15:42 BMI result Body Mass Index 38.6 Tobacco/Smoking Status: Tobacco use Status Tobacco use date assessed 12/24/24 12/24/24 15:48 Patient Tobacco Use Status Never used Tobacco 12/24/24 15:48 Tobacco use type Cigarette 12/24/24 15:48 e-Cigarette/Vaping Use Never Used 12/24/24 15:48 PHQ-9: PHQ-9 Score PHQ-9: Total score 1 12/24/24 15:56 Depression Screening Interpretation: Positive Thrive Assessment: Date of Thrive Assessment Date Thrive assessed 08/26/24 12/24/24 15:48 Currently or been in a relationship where the following occur: I choose not to answer Const General: comfortable Nutritional Appearance: obese Orientation/consciousness: patient oriented x3 Neck Neck: Yes normal visual inspection, Yes full ROM, Yes no lymphadenopathy, Yes trachea midline and Yes supple Back/Spine/Pelvis Cervical Spine: cervical muscular tenderness, pain with cervical ROM, cervical spasm and Cervical spine tenderness Skin General skin exam: no rashes or lesions noted Neuro General: patient oriented x3 Coding Level of Care Code Est Pt Level 4 (46823) Diagnoses Cervicalgia M54.2 Time Spent (min) 20 Assessment & Plan Assessment & Plan (1) Cervicalgia: Code(s): M54.2 - Cervicalgia Category: Medical Plan: Ordered Physical therapy Ordered Meloxicam Ice/Hot Orders: Orders PT Evaluation and Treatment Today M54.2 - Cervicalgia Medications: New meloxicam 7.5 mg PO DAILY 30 tabs 0RF M54.2 - Cervicalgia Refilled cetirizine (All Day Allergy (cetirizine)) 10 mg PO DAILY PRN 90 tabs 0RF allergy symptoms 90 days Z91.09 - Other allergy status, other than to drugs and biological substances
[2024-12-24 15:42] VITALS: BP 122/78; PULSE 89; TEMP 36.2; O2SAT 97; BMI 38.6
== END 2024-12-24 16:29 | disposition home or self-care (01) ==
PROVIDERS: PCP Internal Medicine; Visit Provider Nurse Practitioner Family
DX: M54.2 Cervicalgia (principal)

== ENCOUNTER 2025-02-17 14:11 | Outpatient (AMB) | payer OTHER, SELFPAY ==
[2025-02-17 14:19] VITALS: BP 152/84; PULSE 83; O2SAT 98; BMI 38.6
--- NOTE | 2025-02-17 14:19 | A.OFFPC_ITS ---
Vital Signs 02/17/25 14:19 Height 5 ft 2 in Weight 211 lb BMI 38.6 BP 152/84 H Blood Pressure Location Lt brachial Position Sitting Pulse 83 Pulse Oximetry (%) 98 Oxygen Delivery Method Room Air Intake Visit Reasons: bp Director Of Counterintelligence Required: No Accompanied by: Self / Same As Patient Allergies No Known Allergies (No Known Allergies*) Allergy (Verified 02/17/25 14:42) Medication List - Last Reconciled 02/17/25 by Zhanna Dee MD albuterol sulfate 90 mcg/actuation 2 puffs inhalation 6XD PRN 30 days cetirizine (All Day Allergy (cetirizine)) 10 mg PO DAILY PRN 90 days copper (ParaGard T 380A) intrauterine lisinopril 40 mg PO DAILY 90 days meloxicam 7.5 mg PO DAILY pantoprazole 40 mg PO DAILY 90 days sumatriptan succinate 25 mg PO Q2-4H PRN 30 days Tobacco use date assessed: 02/17/25 Dental Screening Dental Screen Date: 02/17/25 Did you have a dental visit in the last 12 months?: No Did you have a dental problem in the last 6 months where you did not have access to dental care?: No Was dental information given to patient?: No HPI HPI Comments History of Present Illness Details This is a 49-year-old female with hypertension, iron-deficiency anemia, chronic GERD and hypothyroidism that comes today for follow-up on her conditions. Blood pressure elevated but she admits has not take lisinopril yet. Has some mild anemia that will be monitor and denies any active bleeding. GERD has been stable with PPIs. Last TSH was elevated and I will start her on levothyroxine. No chest pain or shortness on breath. [facility] Medical History (Updated 02/17/25 @ 14:50 by Zhanna Dee MD) Cervicalgia Encounter for physical examination Shortness of breath Well woman exam with routine gynecological exam Cervical cancer screening Counseling for control, intrauterine device BCP ( control pills) initiation Dyspnea on exertion Well woman exam Skin candidiasis Iron deficiency anemia due to chronic blood loss Obese Left sided sciatica Hypertension Surgical History No pertinent past surgical history Family History Mother Diabetes Hypertension Father No problems noted. Brother Colon cancer Social History Household Members: Spouse, Family and Children Housing: Apartment Alcohol intake: never Patient Tobacco Use Status: Never used Tobacco Tobacco use type: Cigarette e-Cigarette/Vaping Use: Never Used Second Hand Smoke Exposure: No service: No Current occupational status: unemployed Cognitive needs: No Hearing needs: No Vision needs: Yes Female Reproductive History Menstrual Age of Menarche: 10 Questionnaire PHQ-9 Over the last 2 weeks, how often have you been bothered by any of the following problems? 1. Little interest or pleasure in doing things: not at all 2. Feeling down, depressed, or hopeless: not at all 3. Trouble falling or staying asleep, or sleeping too much: not at all 4. Feeling tired or having little energy: several days 5. Poor appetite or overeating: not at all 6. Feeling bad about yourself - or that you are a failure or have let yourself or your family down: not at all 7. Trouble concentrating on things, such as reading the newspaper or watching television: not at all 8. Moving or speaking so slowly that other people could have noticed. Or the opposite - being so fidgety or restless that you have been moving around a lot more than usual: not at all 9. Thoughts that you would be better off or of hurting yourself in some w ay: not at all Total score: 1 Depression Screening Interpretation: Positive Depression Screening Done: Yes 58046 - PHQ-9 Billing: Yes Source: Developed by Drs. Zachariah Du, Jaylin Saucedo, Garrison Field and colleagues, with an educational jessika from [employer]. Thrive Questionnaire Date Thrive assessed: 02/17/25 I am a: Patient What is your living situation today?: I have a steady place to live Within the past 12 months, did the food you bought not last and you didn't have the money to get more?: Often true Within the past 12 months, did you worry whether your food would run out before you got money to buy more?: Never true Do you have trouble paying for medicines?: No Do you have trouble getting transportation to medical appointments?: No Do you have trouble paying your heating and electricity bill?: No Do you have trouble taking care of your child, family member or friend?: No Do you have trouble with day-to-day activities such as bathing, preparing meals, shopping, managing finances, etc.?: No Are you currently unemployed and looking for a job?: Yes Are you interested in more education?: Yes Please select the resources that you would like help with: None Currently or been in a relationship where the following occur: I choose not to answer THRIVE Score: 1 AUDIT C Alcohol Use Questionnaire (AUDIT-C) 1. How often do you have a drink containing alcohol?: Never Total Score: 0 Score Reviewed/Action Taken: No ROWAN-7 AMB Questionnaire ROWAN-7 Date ROWAN - 7 assessed: 02/17/25 Feeling nervous, anxious, or on edge: 2 = More than half the days Not being able to stop or control worryin = More than half the days Worrying too much about different things: 2 = More than half the days Trouble relaxin = More than half the days Being so restless that it is hard to sit still: 2 = More than half the days Becoming easily annoyed or irritable: 1 = Several days Feeling afraid as if something awful might happen: 2 = More than half the days Total ROWAN-7 score (0-4 normal; 5-9 mild; 10-14 moderate; 15-21 severe): 13 Source: Developed by Drs. Zachariah Du, Jaylin Saucedo, Garrison Field and colleagues, with an educational jessika from [employer]. ROWAN-7 Assessment Billing ROWAN-7 Assessment Tool: ROWAN-7 Assessment 86821 Review of Systems Const All systems reviewed & are unremarkable except as noted in HPI and below Card Denies chest pain at rest, Denies chest pain with activity, Denies edema, Denies irregular heart rhythm, Denies claudication, Denies dyspnea, Denies dyspnea on exertion, Denies orthopnea, Denies paroxysmal nocturnal dyspnea and Denies slow heart rate Resp Denies cough, Denies dyspnea and Denies dyspnea on exertion Neuro Denies lack of coordination Physical exam (Primary Care) Vital Signs: Last Vital Signs Pulse 83 02/17/25 14:19 BP 152/84 H 02/17/25 14:19 Pulse Ox 98 02/17/25 14:19 Oxygen Delivery Method Room Air 02/17/25 14:19 BMI result Body Mass Index 38.6 BMI Assessment/Plan discussion: High BMI High, discussed plan: lifestyle, weight reduction, dietary and physical activity Tobacco/Smoking Status: Tobacco use Status Tobacco use date assessed 02/17/25 02/17/25 14:24 Patient Tobacco Use Status Never used Tobacco 02/17/25 14:24 Tobacco use type Cigarette 02/17/25 14:24 e-Cigarette/Vaping Use Never Used 02/17/25 14:24 PHQ-9: PHQ-9 Score PHQ-9: Total score 1 02/17/25 14:24 Depression Screening Interpretation: Positive Thrive Assessment: Date of Thrive Assessment Date Thrive assessed 02/17/25 02/17/25 14:24 Currently or been in a relationship where the following occur: I choose not to answer Resp Effort & Inspection: normal respiratory effort Auscultation: clear to auscultation bilaterally Cardio Jugular venous distension: no JVD Rate: regular rate Rhythm: regular rhythm Heart sounds: S1 normal heart sound present and S2 normal heart sound present Extrem General: Yes full ROM Coding Level of Care Code Est Pt Level 4 (53703) Complex EM visit Add On G2211 Diagnoses Essential hypertension I10 Hypertension type: essential hypertension Hypothyroidism E03.9 Chronic GERD K21.9 Iron deficiency anemia due to chronic blood loss D50.0 Additional Codes ROWAN-7 Assessment Billing - ROWAN-7 Assessment Tool: ROWAN-7 Assessment 29030 ([id number]) PHQ-9 - 17341 - PHQ-9 Billing: Yes ([id number]) Time Spent (min) 21 Assessment & Plan Assessment & Plan (1) Hypertension: Code(s): I10 - Essential (primary) hypertension Category: Medical Qualifiers: Hypertension type: essential hypertension Qualified Code(s): I10 - Essential (primary) hypertension (2) Hypothyroidism: Code(s): E03.9 - Hypothyroidism, unspecified Category: Medical (3) Chronic GERD: Code(s): K21.9 - Gastro-esophageal reflux disease without esophagitis Category: Medical (4) Iron deficiency anemia due to chronic blood loss: Code(s): D50.0 - Iron deficiency anemia secondary to blood loss (chronic) Category: Medical Plan Continue current meds. Blood pressure goal is equal or less than 130/80. Start levothyroxine. Repeat labs in 2 months. Orders: Orders MM tomosynthesis screening BI 2 Months Z12.31 - Encounter for screening mammogram for malignant neoplasm of breast Lipid Panel 2 Months E78.5 - Hyperlipidemia, unspecified Vitamin B12 and Folate 2 Months E53.8 - Deficiency of other specified B group vitamins Vitamin D 25-OH Total 2 Months E55.9 - Vitamin D deficiency, unspecified Thyroid Stimulating Hormone 2 Months E03.9 - Hypothyroidism, unspecified Thyroid Peroxidase Antibodies 2 Months E03.9 - Hypothyroidism, unspecified IRON PROFILE 2 Months D64.9 - Anemia, unspecified Complete Blood Count Auto Diff 2 Months D64.9 - Anemia, unspecified Comprehensive [place]. Panel Fast 2 Months K21.9 - Gastro-esophageal reflux disease without esophagitis Free T4 (Free Thyroxine) 2 Months E03.9 - Hypothyroidism, unspecified Thyroglobulin Antibodies 2 Months E03.9 - Hypothyroidism, unspecified UA CC w/rflx Micro + Cult Today R30.0 - Dysuria Medications: New levothyroxine (Levoxyl) 25 mcg PO DAILY 90 tabs 1RF 90 days E03.9 - Hypothyroidism, unspecified Refilled pantoprazole 40 mg PO DAILY 90 tabs 1RF 90 days lisinopril 40 mg PO DAILY 90 tabs 0RF 90 days
== END 2025-02-17 14:51 | disposition home or self-care (01) ==
LOC: HO.HMCH 14:11
PROVIDERS: PCP Internal Medicine; Visit Provider Internal Medicine
DX: I10 Essential (primary) hypertension (principal); E03.9 Hypothyroidism, unspecified; K21.9 Gastro-esophageal reflux disease without esophagitis; D50.0 Iron deficiency anemia secondary to blood loss (chronic)

== ENCOUNTER → 2025-02-17 14:11 | Outpatient (BNVA) | payer OTHER, SELFPAY | PROVIDERS: PCP Internal Medicine; Visit Provider Internal Medicine | DX: I10 Essential (primary) hypertension (principal); E03.9 Hypothyroidism, unspecified; K21.9 Gastro-esophageal reflux disease without esophagitis; D50.0 Iron deficiency anemia secondary to blood loss (chronic); Z13.31 Encounter for screening for depression; Z13.39 Encounter for screening examination for other mental health and behavioral disorders | CPT/HCPCS: 96127 ==

== ENCOUNTER 2025-02-24 12:53 | Outpatient (REF) | payer OTHER, SELFPAY ==
[2025-02-24 22:24] LABS: Bacterial Vaginosis PCR NEGATIVE (Negative); Candida Group PCR DETECTED (Not Detect); Candida glab krusei PCR NOT DETECTED (Not Detect); Trichomonas vaginalis PCR NOT DETECTED (Not Detect)
[2025-02-24 23:47] LABS: CT PCR NOT DETECTED (Not Detect.); NG PCR NOT DETECTED (Not Detect.)
== END 2025-02-24 12:54 | disposition home or self-care (01) ==
LOC: HO.LNP 12:53
PROVIDERS: PCP Internal Medicine; Visit Provider Obstetrics & Gynecology
DX: N76.0 Acute vaginitis (principal); Z20.2 Contact with and (suspected) exposure to infections with a predominantly sexual mode of transmission
CPT/HCPCS: 81515; 87491; 87591

== ENCOUNTER 2025-02-24 12:53 | Outpatient (AMB) | payer OTHER, SELFPAY ==
[2025-02-24 13:04] VITALS: BMI 39.1
--- NOTE | 2025-02-24 13:04 | MHC.OFFVIS ---
Vital Signs 02/24/25 13:04 Height 5 ft 2 in Weight 214 lb BMI 39.1 Intake Visit Reasons: Vaginal itching Content Coordinator Required: Yes Information Interpreted: clinical only Investment Strategist: Investment Strategist Present Accompanied by: Self / Same As Patient Allergies No Known Allergies (No Known Allergies*) Allergy (Verified 02/17/25 14:42) HPI Comments Details: Presenting complaining of vaginal discharge with foul odor associated with vulvovaginal itching PFSH Medical History Cervicalgia Encounter for physical examination Shortness of breath Well woman exam with routine gynecological exam Cervical cancer screening Counseling for control, intrauterine device BCP ( control pills) initiation Dyspnea on exertion Well woman exam Skin candidiasis Iron deficiency anemia due to chronic blood loss Obese Left sided sciatica Hypertension Surgical History No pertinent past surgical history Family History Mother Diabetes Hypertension Father No problems noted. Brother Colon cancer Social History Household Members: Spouse, Family and Children Housing: Apartment Alcohol intake: never Patient Tobacco Use Status: Never used Tobacco Tobacco use type: Cigarette e-Cigarette/Vaping Use: Never Used Second Hand Smoke Exposure: No service: No Current occupational status: unemployed Cognitive needs: No Hearing needs: No Vision needs: Yes Female Reproductive History Menstrual Age of Menarche: 10 Review of Systems Const All systems reviewed & are unremarkable except as noted in HPI and below Physical Exam Vital Signs: BMI result Body Mass Index 39.1 General: Yes no CVA tenderness External Female Exam: normal external appearance and normal appearance of the urethra Speculum Exam - Vagina: normal appearance of the vagina, normal palpation, no lesions and no masses Speculum Exam - Cervix: normal appearance of the cervix, normal palpation, no lesions, no masses and nontender Bimanual exam- vagina & uterus: normal bimanual exam, normal palpation, uterine size normal, normal palpation, uterine shape normal, No Cervical tenderness present and non-tender Bimanual Exam- Adnexa, other: normal adnexae Back/Spine/Pelvis Back: no CVA tenderness Assessment & Plan Assessment & Plan (1) Vulvovaginitis: Code(s): N76.0 - Acute vaginitis Category: Medical Plan: GC and chlamydia cultures with BV panel taken. Terazol 0.8% q.h.s. for 3 nights sent to the patient's pharmacy with Flagyl 500 mg p.o. b.i.d. x 7 days, Instructions given to the patient to refrain from sexual activity or to use condoms consistently and correctly during the BV treatment regimen, not to douch, it might increase the risk for relapse, and to call if symptoms persist or recur. Medications: New terconazole 0.8% 1 appful vaginal BEDTIME 20 grams 0RF 3 days metronidazole 500 mg PO BID 14 tabs 0RF 7 days Coding Level of Care Code Est Pt Level 3 (73323) Diagnoses Vulvovaginitis N76.0
== END 2025-02-24 13:27 | disposition home or self-care (01) ==
LOC: HO.HWS 12:53
PROVIDERS: PCP Internal Medicine; Visit Provider Obstetrics & Gynecology
DX: N76.0 Acute vaginitis (principal)
CPT/HCPCS: 99213

== ENCOUNTER 2025-04-06 15:35 | Outpatient (REF) | payer OTHER, SELFPAY ==
[2025-04-06 15:56] LABS: MANUAL DIFF FLAG NO
[2025-04-06 16:10] LABS: Hematocrit 34.0 % (37.0-47.0); Hemoglobin 10.3 g/dl (12.0-16.0); Imm Gran Abs Auto 0.09 X10*3/uL (0.00-0.03); Imm Gran Pct Auto 1.1 % (0.0-0.4); Lymphocytes Absolute Auto 2.0 X10*3/uL (1.2-4.9); Mean Corpuscular HGB Conc 30.3 g/dl (31.0-35.0); Mean Corpuscular Hemoglobin 22.0 pg (27.0-33.0); Mean Corpuscular Volume 72.5 fL (80.0-98.0); NRBC Abs Auto 0.000 X10*3/uL (0.0-0.012); NRBC Pct Auto 0.0 /100WBC (0.0-0.2); Platelet Count 381 X10*3/uL (160-400); Red Blood Count 4.69 X10*6/uL (4.20-5.50); White Blood Count 8.5 X10*3/uL (4.8-10.8)
[2025-04-06 16:35] LABS: Alanine Aminotransferase 29 U/L (0-31); Albumin Level 4.3 g/dL (3.5-5.0); Alkaline Phosphatase 120 U/L (39-117); Anion Gap 10 (12-20); Aspartate Amino Transferase 30 U/L (5-31); Blood Urea Nitrogen 16 mg/dL (9-16); Calcium 8.9 mg/dL (8.4-10.2); Carbon Dioxide 25 mmol/L (22-29); Chloride 110 mmol/L (96-108); Cholesterol 197 mg/dL (<200); Estimated Glomerular Filt Rate 58; HDL Cholesterol 40 mg/dL (>40); Iron 50 mcg/dL (30-160); Percent Iron Saturation 15 % (15-50); Potassium 4.4 mmol/L (3.3-5.1); Sodium 141 mmol/L (135-145); Total Iron Binding Capacity 340 mcg/dL (228-428); Total Protein 7.3 g/dL (6.5-8.0); Triglycerides 134 mg/dL (<150); Unsaturated Iron Binding 290 ug/dL
[2025-04-06 16:55] LABS: Free T4 (Free Thyroxine) 0.78 ng/dL (0.71-1.85); Thyroid Stimulating Hormone 3.70 uIU/mL (0.32-4.0)
[2025-04-06 17:10] LABS: Folate 9.0 ng/mL (> or = 4.0); Vitamin B12 393 pg/mL (200-900)
[2025-04-07 18:24] LABS: Thyroglobulin Antibodies <1 IU/mL (< or = 1)
== END 2025-04-06 15:36 | disposition home or self-care (01) ==
LOC: HO.LAB 15:35
PROVIDERS: PCP Internal Medicine; Visit Provider Internal Medicine
DX: Z01.84 Encounter for antibody response examination (principal); K21.9 Gastro-esophageal reflux disease without esophagitis; D50.0 Iron deficiency anemia secondary to blood loss (chronic); E53.8 Deficiency of other specified B group vitamins; D64.9 Anemia, unspecified; E78.5 Hyperlipidemia, unspecified; E55.9 Vitamin D deficiency, unspecified; E03.9 Hypothyroidism, unspecified
CPT/HCPCS: 36415; 80053; 80061; 82306; 82607; 82746; 83540; 84439; 84443; 85025; 86376; 86800

== ENCOUNTER 2025-04-07 17:28 | Outpatient (REF) | payer OTHER, SELFPAY ==
[2025-04-07 17:54] LABS: Appearance Urine Turbid; Glucose Urine UA Negative (Negative); PH 5.5 (5.0-9.0); Specific Gravity - Urine >= 1.030 (1.005-1.025)
== END 2025-04-07 17:29 | disposition home or self-care (01) ==
LOC: HO.LNP 17:28
PROVIDERS: Visit Provider Internal Medicine
DX: R30.0 Dysuria (principal)
CPT/HCPCS: 81003

== ENCOUNTER 2025-04-14 13:30 | Outpatient (AMB) | payer OTHER, SELFPAY ==
--- NOTE | 2025-04-14 13:35 | A.OFFVIS_ITS ---
Vital Signs 04/14/25 13:36 Height 5 ft 2 in Weight 205 lb BMI 37.5 BP 130/84 Intake Visit Reasons: annual/DO NOT RS Door Assembler Required: Yes Door Assembler Language: Forestry Engineer Services: Door Assembler Present (in person) Door Assembler Name: Qi LAFLEUR Information Interpreted: non-clinical & clinical Information Management Officer: Information Management Officer Present (Qi LAFLEUR) Accompanied by: Self / Same As Patient Allergies No Known Allergies (No Known Allergies*) Allergy (Verified 04/14/25 13:48) Is last menstrual period known: Yes Last menstrual period: 03/15/25 HPI Comments Details: Presenting for annual exam. No complaints. The patient had ParaGard IUD inserted in 09/2015 Last Pap/HPV was negative in 02/28 Last Mammogram was BI-RADS 2 in 08/30 No previous screening Colonoscopy [facility] Medical History (Updated 04/14/25 @ 14:01 by Petar Nguyen MD) Well woman exam Cervicalgia Encounter for physical examination Shortness of breath Well woman exam with routine gynecological exam Cervical cancer screening Counseling for control, intrauterine device BCP ( control pills) initiation Dyspnea on exertion Skin candidiasis Iron deficiency anemia due to chronic blood loss Obese Left sided sciatica Hypertension Surgical History No pertinent past surgical history Family History Mother Diabetes Hypertension Father No problems noted. Brother Colon cancer Social History Household Members: Spouse, Family and Children Housing: Apartment Alcohol intake: never Patient Tobacco Use Status: Never used Tobacco Tobacco use type: Cigarette e-Cigarette/Vaping Use: Never Used Second Hand Smoke Exposure: No service: No Current occupational status: unemployed Cognitive needs: No Hearing needs: No Vision needs: Yes Female Reproductive History Menstrual Age of Menarche: 10 Date of last menstrual period: 03/15/25 control method: copper IUCD Date of last pap smear: 03/07/22 Date of Mammogram: 08/29/23 Review of Systems Const All systems reviewed & are unremarkable except as noted in HPI and below Card Reports as per HPI Resp Reports as per HPI GI Reports as per HPI and Reports no additional complaints Reports as per HPI Physical Exam Vital Signs: Last Vital Signs BP 130/84 04/14/25 13:36 BMI result Body Mass Index 37.5 Const General: cooperative, healthy appearing and comfortable Chest Chest palpation & inspection: normal inspection of the chest and normal palpation of entire chest wall Breast/axilla inspection: normal inspection of the breasts and normal inspection of the axillae Breast/axilla palpation: normal palpation of the breasts, normal palpation of the axillae and no axillary lymphadenopathy Resp Effort & Inspection: normal respiratory effort Auscultation: clear to auscultation bilaterally Percussion: percussion normal Cardio Palpation: normal PMI Rate: regular rate Rhythm: regular rhythm Heart sounds: no murmurs and no rubs Peripheral pulses: Peripheral pulses 2+ throughout GI Inspection: Yes normal to inspection Palpation (GI): Soft to palpation, nontender, no guarding, not rigid and No hepatosplenomegaly present Percussion: Yes normal to percussion Auscultation: normal bowel sounds Rectal Exam - Female: deferred General: Yes bladder normal to palpation External Female Exam: No lesion Speculum Exam - Vagina: normal appearance of the vagina, normal palpation, normal vaginal discharge and not erythematous Speculum Exam - Cervix: normal appearance of the cervix, normal palpation and Other cervical findings present (IUD string in place) Bimanual exam- vagina & uterus: normal bimanual exam, normal palpation, uterine size normal, bladder normal to palpation, consistency normal and normal palpation Bimanual Exam- Adnexa, other: normal adnexae, no masses and no tenderness Assessment & Plan Assessment & Plan (1) Well woman exam: Code(s): Z01.419 - Encounter for gynecological examination (general) (routine) without abnormal findings Category: Medical Plan: Co testing not indicated this. Counseled the patient about the recommended dietary allowance of 1200 mg of Calcium & 600 IU of vitamin D. Mammogram ordered. The patient was referred to GI for screening colonoscopy . The patient was instructed to perform monthly self-breast exams and schedule annual exam in a year. All questions answered and the patient verbalized understanding. (2) IUD (intrauterine device) in place: Comment: paragard Code(s): Z97.5 - Presence of (intrauterine) contraceptive device Category: Social Hx Plan: Instructions given the patient to schedule IUD removal in no later than 09/01. All questions answered, the patient verbalized understanding Orders: Orders MM tomosynthesis screening BI Today Z12.31 - Encounter for screening mammogram for malignant neoplasm of breast Referrals Gastroenterology Referral Z12.11 - Encounter for screening for malignant neoplasm of colon Coding Level of Care Code Est Pt Prev Care 40-64y(89075) Diagnoses Well woman exam Z01.419 IUD (intrauterine device) in place Z97.5
[2025-04-14 13:36] VITALS: BP 130/84; BMI 37.5
== END 2025-04-14 15:20 | disposition home or self-care (01) ==
LOC: HO.HWS 13:30
PROVIDERS: PCP Internal Medicine; Visit Provider Obstetrics & Gynecology
DX: Z01.419 Encounter for gynecological examination (general) (routine) without abnormal findings (principal); Z97.5 Presence of (intrauterine) contraceptive device
CPT/HCPCS: 99396; 99459

== ENCOUNTER 2025-04-14 14:23 | Outpatient (AMB) | payer OTHER, SELFPAY ==
[2025-04-14 14:27] VITALS: BP 168/90; PULSE 77; RESP 18; O2SAT 98; BMI 37.7
--- NOTE | 2025-04-14 14:27 | A.OFFPC_ITS ---
Vital Signs 04/14/25 14:27 Height 5 ft 2 in Weight 206 lb 4 oz BMI 37.7 BP 168/90 H Blood Pressure Location Lt brachial Position Sitting Respiration 18 Pulse 77 Pulse Source Pulse Oximeter Temp Source Temporal Artery Scan Pulse Oximetry (%) 98 Oxygen Delivery Method Room Air Intake Visit Reasons: Annual exam Human Resources Associate Required: No Accompanied by: Self / Same As Patient Allergies No Known Allergies (No Known Allergies*) Allergy (Verified 04/14/25 14:51) Medication List - Last Reconciled 04/14/25 by Zhanna Dee MD albuterol sulfate 90 mcg/actuation 2 puffs inhalation 6XD PRN 30 days cetirizine (All Day Allergy (cetirizine)) 10 mg PO DAILY PRN 90 days cholecalciferol (vitamin D3) 25 mcg PO DAILY 90 days copper (ParaGard T 380A) intrauterine ferrous sulfate 325 mg PO DAILY 90 days levothyroxine (Levoxyl) 25 mcg PO DAILY 90 days lisinopril 40 mg PO DAILY 90 days meloxicam 7.5 mg PO DAILY pantoprazole 40 mg PO DAILY 90 days sumatriptan succinate 25 mg PO Q2-4H PRN 30 days terconazole 0.8% 1 appful vaginal BEDTIME 3 days Tobacco use date assessed: 04/14/25 Dental Screening Dental Screen Date: 04/14/25 Did you have a dental visit in the last 12 months?: No Did you have a dental problem in the last 6 months where you did not have access to dental care?: No Was dental information given to patient?: Patient has dentist HPI HPI Comments History of Present Illness Details The patient is a 49-year-old female presenting for a physical examination. The patient has a history of hypertension, for which she takes lisinopril 40 mg, but her blood pressure remains elevated. She also has hypothyroidism, which is treated with levothyroxine, and her last TSH was noted to be normal. The patient complains of persistent heartburn despite treatment with pantoprazole. A prior CT scan of the neck revealed a thyroid nodule. Her Vitamin D level was previously low and has been supplemented. Regarding health maintenance, her last mammogram was in 2023 and her last Pap smear was in 2021. She has not yet had a colonoscopy and declined an influenza vaccine during this visit. She denies any chest pain or shortness of breath. [facility] Medical History (Updated 04/14/25 @ 15:05 by Zhanna Dee MD) Well woman exam Cervicalgia Encounter for physical examination Shortness of breath Well woman exam with routine gynecological exam Cervical cancer screening Counseling for control, intrauterine device BCP ( control pills) initiation Dyspnea on exertion Skin candidiasis Iron deficiency anemia due to chronic blood loss Obese Left sided sciatica Hypertension Surgical History No pertinent past surgical history Family History Mother Diabetes Hypertension Father No problems noted. Brother Colon cancer Social History Household Members: Spouse, Family and Children Housing: Apartment Alcohol intake: never Patient Tobacco Use Status: Never used Tobacco Tobacco use type: Cigarette e-Cigarette/Vaping Use: Never Used Second Hand Smoke Exposure: No service: No Current occupational status: unemployed Cognitive needs: No Hearing needs: No Vision needs: Yes Female Reproductive History Menstrual Age of Menarche: 10 Questionnaire Thrive Questionnaire Date Thrive assessed: 02/17/25 I am a: Patient What is your living situation today?: I have a steady place to live Within the past 12 months, did the food you bought not last and you didn't have the money to get more?: Often true Within the past 12 months, did you worry whether your food would run out before you got money to buy more?: Never true Do you have trouble paying for medicines?: No Do you have trouble getting transportation to medical appointments?: No Do you have trouble paying your heating and electricity bill?: No Do you have trouble taking care of your child, family member or friend?: No Do you have trouble with day-to-day activities such as bathing, preparing meals, shopping, managing finances, etc.?: No Are you currently unemployed and looking for a job?: Yes Are you interested in more education?: Yes Please select the resources that you would like help with: None Currently or been in a relationship where the following occur: I choose not to answer THRIVE Score: 1 ROWAN-7 AMB Questionnaire ROWAN-7 Date ROWAN - 7 assessed: 02/17/25 Source: Developed by Drs. Zachariah Du, Jaylin Saucedo, Garrison Field and colleagues, with an educational jessika from [employer]. Review of Systems Const All systems reviewed & are unremarkable except as noted in HPI and below Card Denies chest pain at rest, Denies chest pain with activity, Denies edema, Denies irregular heart rhythm, Denies claudication, Denies dyspnea, Denies dyspnea on exertion, Denies orthopnea, Denies paroxysmal nocturnal dyspnea and Denies slow heart rate Resp Denies cough, Denies dyspnea and Denies dyspnea on exertion GI Denies abdominal pain, Denies change in bowel habits, Denies excessive flatus, Denies nausea and Denies vomiting Physical exam (Primary Care) Vital Signs: Last Vital Signs Pulse 77 04/14/25 14:27 Resp 18 04/14/25 14:27 BP 168/90 H 04/14/25 14:27 Pulse Ox 98 04/14/25 14:27 Oxygen Delivery Method Room Air 04/14/25 14:27 BMI result Body Mass Index 37.7 BMI Assessment/Plan discussion: High BMI High, discussed plan: lifestyle, weight reduction, dietary and physical activity Tobacco/Smoking Status: Tobacco use Status Tobacco use date assessed 04/14/25 04/14/25 14:43 Patient Tobacco Use Status Never used Tobacco 04/14/25 14:29 Tobacco use type Cigarette 04/14/25 14:29 e-Cigarette/Vaping Use Never Used 04/14/25 14:29 Thrive Assessment: Date of Thrive Assessment Date Thrive assessed 02/17/25 04/14/25 14:29 Currently or been in a relationship where the following occur: I choose not to answer [facility] Head: Yes normal to inspection, Yes normocephalic and Yes atraumatic Ears: external ears normal Eyes General: appearance normal, both eyes and all related structures Eyelids: Yes eyelids normal Conjunctivae: conjunctivae normal Neck Neck: Yes normal visual inspection and Yes supple Resp Effort & Inspection: normal respiratory effort Auscultation: clear to auscultation bilaterally Cardio Jugular venous distension: no JVD Rate: regular rate Rhythm: regular rhythm Heart sounds: S1 normal heart sound present and S2 normal heart sound present GI Inspection: Yes normal to inspection Palpation (GI): Soft to palpation and nontender Auscultation: normal bowel sounds Skin General skin exam: no rashes or lesions noted Neuro General: no focal motor deficits Extrem General: Yes full ROM Psych Appearance: grossly normal Coding Level of Care Code Est Pt Level 3 (50612) Est Pt Prev Care 40-64y(89914) Diagnoses Encounter for physical examination Z00.00 Thyroid nodule E04.1 Essential hypertension I10 Hypertension type: essential hypertension Time Spent (min) 33 Assessment & Plan Assessment & Plan (1) Encounter for physical examination: Code(s): Z00.00 - Encounter for general adult medical examination without abnormal findings Category: Medical (2) Thyroid nodule: Code(s): E04.1 - Nontoxic single thyroid nodule Category: Medical (3) Hypertension: Code(s): I10 - Essential (primary) hypertension Category: Medical Qualifiers: Hypertension type: essential hypertension Qualified Code(s): I10 - Essential (primary) hypertension Plan Plan 1. Physical exam Repeat in a year. Mammogram ordered. 2. Hypertension The patient's blood pressure is elevated today despite taking lisinopril 40 mg. A blood pressure recheck by a nurse navigator is scheduled in three weeks. 3. Thyroid Nodule The patient was found to have a thyroid nodule on a CT scan of the neck. An ultrasound of the thyroid will be ordered for further evaluation. 4. Gastroesophageal Reflux Disease The patient continues to experience heartburn despite taking pantoprazole. A referral will be made to gastroenterology for further management. Orders: Orders MM tomosynthesis screening BI Today Z12.31 - Encounter for screening mammogram for malignant neoplasm of breast US thyroid Today E04.1 - Nontoxic single thyroid nodule Referrals Gastroenterology Referral K21.9 - Gastro-esophageal reflux disease without e sophagitis, Z12.11 - Encounter for screening for malignant neoplasm of colon Medications: Refilled cholecalciferol (vitamin D3) 25 mcg PO DAILY 90 caps 1RF 90 days ferrous sulfate 325 mg PO DAILY 90 tabs 1RF 90 days
== END 2025-04-14 15:04 | disposition home or self-care (01) ==
LOC: HO.HMCH 14:23
PROVIDERS: PCP Internal Medicine; Visit Provider Internal Medicine
DX: Z00.00 Encounter for general adult medical examination without abnormal findings (principal); E04.1 Nontoxic single thyroid nodule; I10 Essential (primary) hypertension